=== PATIENT | female | born 1985 | race Caucasian/White ===

== ENCOUNTER 2016-10-23 16:43 | Emergency (ER) | payer BC ==
[2016-10-23] MEDS ORDERED: Ondansetron 4 MG/2 ML SDV IVPUSH ONE (18:35)
[2016-10-23] MEDS ORDERED: Sodium Chloride 0.9% 1,000 ML IV ONE (18:35)
--- NOTE | 2016-10-23 18:51 | EDM.PDOC ---
ED HPI GI/ABDOMINAL - General Chief Complaint: Gastrointestinal Problem Stated Complaint: PT VOMITTING, DIARRHEA Time Seen by Provider: 10/23/16 17:42 Source of Information: Reports: Patient History Limitations: Reports: No limitations - History of Present Illness INITIAL COMMENTS - FREE TEXT/NARRATIVE: History of present illness: [31-year-old female comes in complaining of low grade fever, and general aches, stomach upset, nausea vomiting diarrhea. Patient indicates that this is been going on for the last 3 days progressively getting worse today she just feels weaker and that she must have some hydration more this will cause her fibromyalgia to flare up.] Review of systems: As per history of present illness and below otherwise all systems reviewed and negative. Past medical history: As per history of present illness and as reviewed below otherwise noncontributory. Surgical history: As per history of present illness and as reviewed below otherwise noncontributory. Social history: No reported history of drug or alcohol abuse. Family history: As per history of present illness and as reviewed below otherwise noncontributory. Physical exam: HEENT: Atraumatic, normocephalic, pupils reactive, negative for conjunctival pallor or scleral icterus, mucous membranes moist, throat clear, neck supple, nontender, trachea midline. Lungs: Clear to auscultation, breath sounds equal bilaterally, chest nontender. Heart: S1S2, regular, negative for clicks, rubs, or JVD. Abdomen: Soft, nondistended, nontender. Negative for masses or hepatosplenomegaly. Negative for costovertebral tenderness. Pelvis: Stable nontender. Genitourinary: Deferred. Rectal: Deferred. Extremities: Atraumatic, negative for cords or calf pain. Neurovascular unremarkable. Neuro: Awake, alert, oriented. Cranial nerves II through XII unremarkable. Cerebellum unremarkable. Motor and sensory unremarkable throughout. Exam nonfocal. Patient indicated she felt nausea the past and could successfully tolerate some by mouth fluids at this time we'll attempt PO challenge By mouth challenge successful without any complaint Patient without any vomiting or diarrhea during her time in the ER which was greater than 4 hours. Diagnostics: [CBC, CMP] Therapeutics: [IV fluid, Zofran] Impression: [Viral syndrome] Plan: [Followup outpatient with primary care provider] Definitive disposition and diagnosis as appropriate pending reevaluation and review of above. - Related Data Allergies/ADRs: Allergies Allergy/AdvReac Type Severity Reaction Status Date / Time dexamethasone Allergy Other Verified 10/23/16 17:30 ketorolac tromethamine Allergy Shortness Verified 10/23/16 17:30 [From Toradol] of Breath metoclopramide HCl Allergy Anxiety Verified 10/23/16 17:30 [From Reglan] naproxen sodium Allergy Shortness Verified 10/23/16 17:30 [From Treximet] of Breath sumatriptan [From Imitrex] Allergy Shortness Verified 10/23/16 17:30 of Breath sumatriptan succinate Allergy Shortness Verified 10/23/16 17:30 [From Treximet] of Breath Home Meds: Home Meds acetaZOLAMIDE [Diamox] 500 mg PO BID 06/25/14 [History] buPROPion [Wellbutrin XL] 300 mg PO DAILY 06/25/14 [History] Acetaminop/Dichlphn/Isomethept [Midrin 325-100-65 MG] 1 cap PO Q4H PRN 04/27/15 [History] Magnesium 250 mg PO DAILY 04/27/15 [History] Cholecalciferol (Vitamin D3) [Vitamin D] 4,000 unit PO DAILY 10/21/15 [History] Sertraline HCl [Zoloft] 200 mg PO DAILY 12/02/15 [History] Ketoprofen 1 tab PO DAILY PRN 10/23/16 [History] traZODone HCl [Trazodone HCl] 1 tab PO BEDTIME 10/23/16 [History] Past Medical History Respiratory History: Reports: Asthma Musculoskeletal History: Reports: Fibromyalgia Neurological History: Reports: Migraines, Other (see below) Other Neuro History: fibromyalgia, psuedo cerebral tumor Psychiatric History: Reports: Anxiety, Depression - Infectious Disease History Infectious Disease History: Reports: Chicken pox Social & Family History - Family History Family Medical History: Noncontributory - Tobacco Use Smoking Status *Q: Never Smoker Second Hand Smoke Exposure: No - Caffeine Use Caffeine Use: Reports: Soda - Alcohol Use Days Per Week of Alcohol Use: 0 - Recreational Drug Use Recreational Drug Use: No ED ROS GENERAL - Review of Systems Review Of Systems: See Below (See history of present illness) ED EXAM, GI/ABD - Physical Exam Exam: See Below (See history of present illness) Course - Vital Signs Last Recorded V/S: Last Vital Signs Temp 37.2 C 10/23/16 17:27 Pulse 117 H 10/23/16 17:27 Resp 16 10/23/16 17:27 BP 128/87 10/23/16 17:27 Pulse Ox 96 10/23/16 17:27 - Orders/Labs/Meds Labs: Laboratory Tests 10/23/16 10/23/16 Range/Units 19:20 19:20 WBC 10.19 (4.0-11.0) K/uL RBC 4.77 (4.30-5.90) M/uL Hgb 14.0 (12.0-16.0) g/dL Hct 41.7 (36.0-46.0) % MCV 87.4 (80.0-98.0) fL MCH 29.4 (27.0-32.0) pg MCHC 33.6 (31.0-37.0) g/dL RDW Std Deviation 40.7 (28.0-62.0) fl RDW Coeff of Paige 13 (11.0-15.0) % Plt Count 197 (150-400) K/uL MPV 10.70 (7.40-12.00) fL Neut % (Auto) 91.9 H (48.0-80.0) % Lymph % (Auto) 4.9 L (16.0-40.0) % [place] % (Auto) 3.0 (0.0-15.0) % Eos % (Auto) 0.1 (0.0-7.0) % Baso % (Auto) 0.1 (0.0-1.5) % Neut # 9.4 H (1.4-5.7) K/uL Lymph # 0.5 L (0.6-2.4) K/uL [place] # 0.3 (0.0-0.8) K/uL Eos # 0.0 (0.0-0.7) K/uL Baso # 0.0 (0.0-0.1) K/uL Nucleated RBC % 0.0 /100WBC Nucleated RBCs # 0 K/uL Sodium 137 (136-146) mmol/L Potassium 3.7 (3.5-5.1) mmol/L Chloride 111 H (98-110) mmol/L Carbon Dioxide 17 L (21-31) mmol/L BUN 15 (6.0-23.0) mg/dL Creatinine 0.9 (0.6-1.5) mg/dL Est Cr Clr Drug Dosing 78.93 mL/min Estimated GFR (MDRD) > 60.0 ml/min Glucose 101 (60-110) mg/dL Calcium 8.8 (8.8-10.8) mg/dL Total Bilirubin 0.6 (0.1-1.5) mg/dL AST 12 (5-40) IU/L ALT 9 (8-54) IU/L Alkaline Phosphatase 101 (40-150) Total Protein 7.7 (6.0-8.0) g/dL Albumin 4.3 (3.5-5.0) g/dL Globulin 3.4 (2.0-3.5) g/dL Albumin/Globulin Ratio 1.3 (1.3-2.8) Meds: Medications Discontinued Medications Generic Name Dose Route Start Last Admin Trade Name Freq PRN Reason Stop Dose Admin Sodium Chloride 1,000 mls @ 999 mls/hr 10/23/16 18:35 10/23/16 19:21 Normal Saline IV 10/23/16 19:35 999 mls/hr STAT ONE Administration Ondansetron HCl 8 mg 10/23/16 18:35 10/23/16 19:22 Zofran IVPUSH 10/23/16 18:36 8 mg ONETIME ONE Administration Departure - Departure Time of Disposition: 21:10 Disposition: Home, Self-Care 01 Condition: good Clinical Impression: Vomiting, Diarrhea Instructions: Viral Gastroenteritis, Adult, [id number] Forms: ED Department Discharge Additional Instructions: The following information is given to patients seen in the emergency department who are being discharged to home. This information is to outline your options for follow-up care. We provide all patients seen in our emergency department with a follow-up referral. The need for follow-up, as well as the timing and circumstances, are variable depending upon the specifics of your emergency department visit. If you don't have a primary care physician on staff, we will provide you with a referral. We always advise you to contact your personal physician following an emergency department visit to inform them of the circumstance of the visit and for follow-up with them and/or the need for any referrals to a consulting specialist. The emergency department will also refer you to a specialist when appropriate. This referral assures that you have the opportunity for follow-up care with a specialist. All of these measure are taken in an effort to provide you with optimal care, which includes your follow-up. Under all circumstances we always encourage you to contact your private physician who remains a resource for coordinating your care. When calling for follow-up care, please make the office aware that this follow-up is from your recent emergency room visit. If for any reason you are refused follow-up, please contact the [facility] Emergency Department at and asked to speak to the emergency department charge nurse. Followup PCP in 1-2 days Turn to ED as needed as discussed
[2016-10-23 19:48] LABS: CHLORIDE,CL 111 mmol/L (98-110); SODIUM,NA 137 mmol/L (136-146)
[2016-10-23 21:36] VITALS: BP 119/81
== END 2016-10-23 21:36 | disposition home or self-care (01) ==
LOC: MW.ED 16:43
DX: B34.9 Viral infection, unspecified (principal); J45.909 Unspecified asthma, uncomplicated; F41.9 Anxiety disorder, unspecified; F32.9 Major depressive disorder, single episode, unspecified; Z79.899 Other long term (current) drug therapy; Z88.8 Allergy status to other drugs, medicaments and biological substances; Z88.5 Allergy status to narcotic agent
CPT/HCPCS: 36415; 80053; 85025; 96361; 96374; 99284; J2405; J7040

== ENCOUNTER 2017-03-08 16:59 | Emergency (ER) | payer BC ==
[2017-03-08] MEDS ORDERED: Ondansetron 4 MG/2 ML SDV IVPUSH ONE (17:16)
[2017-03-08] MEDS ORDERED: Sodium Chloride 0.9% 1,000 ML IV ONE (17:16)
[2017-03-08] MEDS ORDERED: Acetaminophen 1,000 MG in Premix Bag 1 BAG IV ONE (17:38)
--- NOTE | 2017-03-08 17:57 | EDM.PDOC ---
ED HPI GENERAL MEDICAL PROBLEM - General Chief Complaint: Gastrointestinal Problem Stated Complaint: 8 WEEKS /VOMITING HEADACHE Time Seen by Provider: 03/08/17 17:45 Source of Information: Reports: Patient History Limitations: Reports: No Limitations - History of Present Illness INITIAL COMMENTS - FREE TEXT/NARRATIVE: History of present illness: [31-year-old female comes in complaining of migraine headache. Patient is 8 weeks and does have a long-standing history of migraines. Patient indicates that she has had intermittent nausea throughout this 8 weeks of but that it had mostly resolved and now it has returned again today.] Review of systems: As per history of present illness and below otherwise all systems reviewed and negative. Past medical history: As per history of present illness and as reviewed below otherwise noncontributory. Surgical history: As per history of present illness and as reviewed below otherwise noncontributory. Social history: No reported history of drug or alcohol abuse. Family history: As per history of present illness and as reviewed below otherwise noncontributory. Physical exam: HEENT: Atraumatic, normocephalic, pupils reactive, negative for conjunctival pallor or scleral icterus, mucous membranes moist, throat clear, neck supple, nontender, trachea midline. Lungs: Clear to auscultation, breath sounds equal bilaterally, chest nontender. Heart: S1S2, regular, negative for clicks, rubs, or JVD. Abdomen: Soft, nondistended, nontender. Negative for masses or hepatosplenomegaly. Negative for costovertebral tenderness. Pelvis: Stable nontender. Genitourinary: Deferred. Rectal: Deferred. Extremities: Atraumatic, negative for cords or calf pain. Neurovascular unremarkable. Neuro: Awake, alert, oriented. Cranial nerves II through XII unremarkable. Cerebellum unremarkable. Motor and sensory unremarkable throughout. Exam nonfocal. 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 head Pain Score (Numeric/FACES): 7 stomach Pain Score (Numeric/FACES): 4 - Related Data Allergies Allergy/AdvReac Type Severity Reaction Status Date / Time dexamethasone Allergy Other Verified 03/08/17 17:12 ketorolac tromethamine Allergy Shortness Verified 03/08/17 17:12 [From Toradol] of Breath metoclopramide HCl Allergy Anxiety Verified 03/08/17 17:12 [From Reglan] naproxen sodium Allergy Shortness Verified 03/08/17 17:12 [From Treximet] of Breath sumatriptan [From Imitrex] Allergy Shortness Verified 03/08/17 17:12 of Breath sumatriptan succinate Allergy Shortness Verified 03/08/17 17:12 [From Treximet] of Breath Home Meds: Home Meds Cholecalciferol (Vitamin D3) [Vitamin D3] 400 unit PO DAILY 03/08/17 [History] Magnesium 250 mg PO DAILY 03/08/17 [History] Vit No.129/Iron/FA [ One Daily Tablet] 1 tab PO DAILY 03/08/17 [History] Sertraline HCl [Zoloft] 200 mg PO DAILY 03/08/17 [History] buPROPion HCl [Wellbutrin Xl] 300 mg PO DAILY 03/08/17 [History] Past Medical History Respiratory History: Reports: Asthma Musculoskeletal History: Reports: Fibromyalgia Neurological History: Reports: Migraines, Other (See Below) Other Neuro History: fibromyalgia, psuedo cerebral tumor Psychiatric History: Reports: Anxiety, Depression - Infectious Disease History Infectious Disease History: Reports: Chicken Pox Social & Family History - Family History Family Medical History: Noncontributory - Tobacco Use Smoking Status *Q: Never Smoker Second Hand Smoke Exposure: No - Caffeine Use Caffeine Use: Reports: Soda - Alcohol Use Days Per Week of Alcohol Use: 0 - Recreational Drug Use Recreational Drug Use: No ED ROS GENERAL - Review of Systems Review Of Systems: See Below (History of present illness) ED EXAM, GENERAL - Physical Exam Exam: See Below (See history of present illness) Course - Vital Signs Last Recorded V/S: Last Vital Signs Temp 36.4 C 03/08/17 17:12 Pulse 103 H 03/08/17 17:12 Resp 18 03/08/17 17:12 BP 139/90 03/08/17 17:12 Pulse Ox 98 03/08/17 17:12 - Orders/Labs/Meds Orders: Active Orders 24 hr Category Date Time Status CBC WITH AUTO DIFF [HEME] Stat Lab 03/08/17 17:16 Ordered CMP [COMPREHENSIVE METABOLIC PN,CMP] [CHEM] Stat Lab 03/08/17 17:16 Ordered UA W/MICROSCOPIC [URIN] Stat Lab 03/08/17 17:38 Uncollected Acetaminophen [Ofirmev] 1,000 mg Med 03/08/17 17:38 Ordered Premix Bag 1 bag IV NOW Sodium Chloride 0.9% [Normal Saline] 1,000 ml Med 03/08/17 17:16 Ordered IV STAT Medication Orders Sodium Chloride (Normal Saline) 1,000 mls @ 999 mls/hr IV STAT ONE Stop: 03/08/17 18:16 Acetaminophen 1,000 mg/ Premix 100 mls @ 400 mls/hr IV NOW ONE Stop: 03/08/17 17:52 Meds: Medications Generic Name Dose Route Start Last Admin Trade Name Freq PRN Reason Stop Dose Admin Sodium Chloride 1,000 mls @ 999 mls/hr 03/08/17 17:16 Normal Saline IV 03/08/17 18:16 STAT ONE Acetaminophen 1,000 mg/ Premix 100 mls @ 400 mls/hr 03/08/17 17:38 IV 03/08/17 17:52 NOW ONE Discontinued Medications Generic Name Dose Route Start Last Admin Trade Name Freq PRN Reason Stop Dose Admin Ondansetron HCl 8 mg 03/08/17 17:16 Zofran IVPUSH 03/08/17 17:17 ONETIME ONE Departure - Departure Time of Disposition: 18:05 Disposition: Home, Self-Care 01 Condition: Good Clinical Impression: Migraine, Vomiting - Discharge Information Instructions: Dehydration, Adult, [id number], Nausea and Vomiting, Adult, [id number] Forms: ED Department Discharge Additional Instructions: The following information is given to patients seen in the emergency department who are being discharged to home. This information is to outline your options for follow-up care. We provide all patients seen in our emergency department with a follow-up referral. The need for follow-up, as well as the timing and circumstances, are variable depending upon the specifics of your emergency department visit. If you don't have a primary care physician on staff, we will provide you with a referral. We always advise you to contact your personal physician following an emergency department visit to inform them of the circumstance of the visit and for follow-up with them and/or the need for any referrals to a consulting specialist. The emergency department will also refer you to a specialist when appropriate. This referral assures that you have the opportunity for follow-up care with a specialist. All of these measure are taken in an effort to provide you with optimal care, which includes your follow-up. Under all circumstances we always encourage you to contact your private physician who remains a resource for coordinating your care. When calling for follow-up care, please make the office aware that this follow-up is from your recent emergency room visit. If for any reason you are refused follow-up, please contact the [facility] Emergency Department at and asked to speak to the emergency department charge nurse. Drink clear liquids and advance to full liquids as slowly introduce start seafoods such as bananas rice applesauce and toast You're being provided with Zofran to help and assist you with a nausea it is important you follow-up with your OB supervisor fine grading as discussed Return to the ED as needed as discussed - My Orders Last 24 Hours: My Active Orders 03/08/17 17:16 CBC WITH AUTO DIFF [HEME] Stat CMP [COMPREHENSIVE METABOLIC PN,CMP] [CHEM] Stat Sodium Chloride 0.9% [Normal Saline] 1,000 ml IV STAT 03/08/17 17:38 UA W/MICROSCOPIC [URIN] Stat Acetaminophen [Ofirmev] 1,000 mg Premix Bag 1 bag IV NOW - Assessment/Plan Last 24 Hours: My Active Orders 03/08/17 17:16 CBC WITH AUTO DIFF [HEME] Stat CMP [COMPREHENSIVE METABOLIC PN,CMP] [CHEM] Stat Sodium Chloride 0.9% [Normal Saline] 1,000 ml IV STAT 03/08/17 17:38 UA W/MICROSCOPIC [URIN] Stat Acetaminophen [Ofirmev] 1,000 mg Premix Bag 1 bag IV NOW
[2017-03-08 18:22] LABS: CHLORIDE,CL 105 mmol/L (98-110); SODIUM,NA 136 mmol/L (136-146)
[2017-03-08] MEDS ORDERED: Acetaminophen 500 MG Tab PO ONE (18:47)
[2017-03-08 18:56] VITALS: BP 131/60
== END 2017-03-08 18:53 | disposition home or self-care (01) ==
LOC: MW.ED 16:59
DX: O99.351 Diseases of the nervous system complicating pregnancy, first trimester (principal); G43.909 Migraine, unspecified, not intractable, without status migrainosus; O99.341 Other mental disorders complicating pregnancy, first trimester; F41.9 Anxiety disorder, unspecified; F32.9 Major depressive disorder, single episode, unspecified; Z79.899 Other long term (current) drug therapy; Z88.2 Allergy status to sulfonamides; Z88.6 Allergy status to analgesic agent; Z88.8 Allergy status to other drugs, medicaments and biological substances; Z3A.08 8 weeks gestation of pregnancy
CPT/HCPCS: 36415; 80053; 81001; 85025; 96361; 96374; 99283; A9270; J2405; J7040

== ENCOUNTER 2017-05-16 19:41 | Emergency (ER) | payer BC ==
[2017-05-16] MEDS ORDERED: Sodium Chloride 0.9% 1,000 ML IV ONE (20:06)
[2017-05-16] MEDS ORDERED: Promethazine 25 MG/ML SDV IM ONE (20:07)
--- NOTE | 2017-05-16 20:10 | EDM.PDOC ---
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 dickinson on the phone today Review of Systems: As per history of present illness and below otherwise all systems reviewed and negative. Past medical history: As per history of present illness and as reviewed below otherwise noncontributory. Surgical history: As per history of present illness and as reviewed below otherwise noncontributory. Social history: No reported history of drug or alcohol abuse. Family history: As per history of present illness and as reviewed below otherwise noncontributory. Physical exam: Alert and oriented female speaking in full sentences no shortness of breath noted she does appear nontoxic HEENT: Atraumatic, normocehpalic, pupils reactive, negative for conjunctival pallor or scleral icterus, mucous membranes slightly dry, throat clear, neck supple, nontender, trachea midline. Lungs: Clear to auscultation, breath sounds equal bilaterally, chest non tender. Pain to her sides was reproducible with light palpation. Heart: S1S2, regular, negative for clicks, rubs, or JVD. Abdomen: Soft, nondistended, nontender. Negative for masses or hepatossplenmegaly. Negative for costovertebral tenderness. Pelvis: Stable nontender. Genitourinary: Deferred. Rectal: Deferred Extremities: Atraumatic, negative for cords or calf pain. Neurovascular unremarkable. Neuro: Awake, alert, oriented. Cranial nerves II through XII unremarkable. Cerebellum unremarkable. Motor and sensory unremarkable throughout. Exam nonfocal. Diagnostics: [] Therapeutics: [1 L normal saline Promethazine IM] Zofran Impression: [Hyperemesis ] Plan: []Discharged to home Follow up with your 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 tomorrow Definitive disposition and diagnosis as appropriate pending reevaluation and review of above. bilateral flank Pain Score (Numeric/FACES): 9 - Related Data Allergies Allergy/AdvReac Type Severity Reaction Status Date / Time dexamethasone Allergy Other Verified 05/16/17 19:47 ketorolac tromethamine Allergy Shortness Verified 05/16/17 19:47 [From Toradol] of Breath metoclopramide HCl Allergy Anxiety Verified 05/16/17 19:47 [From Reglan] naproxen sodium Allergy Shortness Verified 05/16/17 19:47 [From Treximet] of Breath sumatriptan [From Imitrex] Allergy Shortness Verified 05/16/17 19:47 of Breath sumatriptan succinate Allergy Shortness Verified 05/16/17 19:47 [From Treximet] of Breath Home Meds: Home Meds Cholecalciferol (Vitamin D3) [Vitamin D3] 400 unit PO DAILY 03/08/17 [History] Magnesium 250 mg PO DAILY 03/08/17 [History] Ondansetron [Zofran] 4 mg PO Q4H #30 tab 03/08/17 [Rx] Vit No.129/Iron/FA [ One Daily Tablet] 1 tab PO DAILY 03/08/17 [History] Sertraline HCl [Zoloft] 200 mg PO DAILY 03/08/17 [History] buPROPion HCl [Wellbutrin Xl] 300 mg PO DAILY 03/08/17 [History] Past Medical History HEENT History: Reports: None Cardiovascular History: Reports: None Respiratory History: Reports: Asthma Gastrointestinal History: Reports: None Genitourinary History: Reports: None 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 History: Reports: Musculoskeletal History: Reports: Fibromyalgia Neurological History: Reports: Migraines, Other (See Below) Other Neuro History: fibromyalgia, psuedo cerebral tumor Psychiatric History: Reports: Anxiety, Depression Endocrine/Metabolic History: Reports: None Dermatologic History: Reports: None - Infectious Disease History Infectious Disease History: Reports: Chicken Pox - Past Surgical History HEENT Surgical History: Reports: None GI Surgical History: Reports: None Social & Family History - Family History Family Medical History: Noncontributory - Tobacco Use Smoking Status *Q: Never Smoker Second Hand Smoke Exposure: No - Caffeine Use Caffeine Use: Reports: Soda - Alcohol Use Days Per Week of Alcohol Use: 0 - Recreational Drug Use Recreational Drug Use: No ED ROS GENERAL - Review of Systems Review Of Systems: ROS reveals no pertinent complaints other than HPI. ED EXAM, GI/ABD - Physical Exam Exam: See Below (See dictation) Course - Vital Signs Last Recorded V/S: Last Vital Signs Temp 36.4 C 05/16/17 19:48 Pulse 117 H 05/16/17 19:48 Resp 18 05/16/17 19:48 BP 120/87 05/16/17 19:48 Pulse Ox 95 05/16/17 19:48 - Orders/Labs/Meds Orders: Active Orders 24 hr Category Date Time Status Ondansetron [Zofran] Med 05/16/17 20:58 Once 4 mg IVPUSH ONETIME ONE Sodium Chloride 0.9% [Normal Saline] 1,000 ml Med 05/16/17 20:06 Active IV STAT Medication Orders Sodium Chloride (Normal Saline) 1,000 mls @ 999 mls/hr IV STAT ONE Stop: 05/16/17 21:06 Last Admin: 05/16/17 20:19 Dose: 999 mls/hr Meds: Medications Generic Name Dose Route Start Last Admin Trade Name Freq PRN Reason Stop Dose Admin Sodium Chloride 1,000 mls @ 999 mls/hr 05/16/17 20:06 05/16/17 20:19 Normal Saline IV 05/16/17 21:06 999 mls/hr STAT ONE Administration Discontinued Medications Generic Name Dose Route Start Last Admin Trade Name Freq PRN Reason Stop Dose Admin Promethazine HCl 25 mg 05/16/17 20:07 05/16/17 20:18 Phenergan IM 05/16/17 20:08 25 mg ONETIME ONE Administration Departure - Departure Time of Disposition: 20:59 Disposition: Home, Self-Care 01 Condition: Good Clinical Impression: Vomiting - Discharge Information Referrals: PCP,None [Primary Care Provider] - Forms: ED Department Discharge Additional Instructions: The following information is given to patients seen in the emergency department who are being discharged to home. This information is to outline your options for follow-up care. We provide all patients seen in our emergency department with a follow-up referral. The need for follow-up, as well as the timing and circumstances, are variable depending upon the specifics of your emergency department visit. If you don't have a primary care physician on staff, we will provide you with a referral. We always advise you to contact your personal physician following an emergency department visit to inform them of the circumstance of the visit and for follow-up with them and/or the need for any referrals to a consulting specialist. The emergency department will also refer you to a specialist when appropriate. This referral assures that you have the opportunity for followup care with a specialist. All of these measure are taken in an effort to provide you with optimal care, which includes your followup. Under all circumstances we always encourage you to contact your private physician who remains a resource for coordinating your care. When calling for followup care, please make the office aware that this follow-up is from your recent emergency room visit. If for any reason you are refused follow-up, please contact the [facility] emergency department at and asked to speak to the emergency department charge nurse. You were given IV fluids while in the emergency department You are given some Phenergan IM This prior to leaving the ED you're given Zofran IV Please follow up with your 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 tomorrow - My Orders Last 24 Hours: My Active Orders 05/16/17 20:06 Sodium Chloride 0.9% [Normal Saline] 1,000 ml IV STAT 05/16/17 20:58 Ondansetron [Zofran] 4 mg IVPUSH ONETIME ONE - Assessment/Plan Last 24 Hours: My Active Orders 05/16/17 20:06 Sodium Chloride 0.9% [Normal Saline] 1,000 ml IV STAT 05/16/17 20:58 Ondansetron [Zofran] 4 mg IVPUSH ONETIME ONE
[2017-05-16] MEDS ORDERED: Ondansetron 4 MG/2 ML SDV IVPUSH ONE (20:58)
[2017-05-16 21:28] VITALS: BP 119/75
== END 2017-05-16 21:23 | disposition home or self-care (01) ==
LOC: MW.ED 19:41
DX: O21.0 Mild hyperemesis gravidarum (principal); O99.512 Diseases of the respiratory system complicating pregnancy, second trimester; J45.909 Unspecified asthma, uncomplicated; O99.342 Other mental disorders complicating pregnancy, second trimester; F32.9 Major depressive disorder, single episode, unspecified; Z79.899 Other long term (current) drug therapy; Z88.8 Allergy status to other drugs, medicaments and biological substances; Z88.6 Allergy status to analgesic agent; Z3A.18 18 weeks gestation of pregnancy
CPT/HCPCS: 96361; 96372; 96374; 99283; J2405; J2550; J7040

== ENCOUNTER 2017-05-20 10:12 | Emergency (ER) | payer BC ==
[2017-05-20] MEDS ORDERED: Sodium Chloride 0.9% 1,000 ML IV ONE (10:25)
[2017-05-20] MEDS ORDERED: Sodium Chloride 0.9% 2.5 ML Syringe FLUSH PRN (10:25)
[2017-05-20] MEDS ORDERED: Sodium Chloride 0.9% 10 ML Syringe FLUSH PRN (10:25)
--- NOTE | 2017-05-20 12:26 | EDM.PDOC ---
ED HPI GENERAL MEDICAL PROBLEM - General Chief Complaint: Gastrointestinal Problem Stated Complaint: VOMITING Time Seen by Provider: 05/20/17 12:22 Source of Information: Reports: Patient History Limitations: Reports: No Limitations - History of Present Illness INITIAL COMMENTS - FREE TEXT/NARRATIVE: HISTORY AND PHYSICAL: []32-year-old female presenting with vomiting History of Present Illness: []Patient is known to the ED staff with her and hyperemesis Called Dr. Stovall previous to coming to ER. It was recommended to come to the ER Review of Systems: As per history of present illness and below otherwise all systems reviewed and negative. Past medical history: As per history of present illness and as reviewed below otherwise noncontributory. Surgical history: As per history of present illness and as reviewed below otherwise noncontributory. Social history: No reported history of drug or alcohol abuse. Family history: As per history of present illness and as reviewed below otherwise noncontributory. Physical exam: Alert and oriented female. She looks tired. Answering questions in full sentences no shortness of breath nontoxic in appearance. HEENT: Atraumatic, normocehpalic, pupils reactive, negative for conjunctival pallor or scleral icterus, mucous membranes dry throat clear, neck supple, nontender, trachea midline. Lungs: Clear to auscultation, breath sounds equal bilaterally, chest non tender. Heart: S1S2, regular, negative for clicks, rubs, or JVD. Abdomen: Soft, nondistended, nontender. Negative for masses or hepatossplenmegaly. Negative for costovertebral tenderness. Pelvis: Stable nontender. Genitourinary: Deferred. Rectal: Deferred Extremities: Atraumatic, negative for cords or calf pain. Neurovascular unremarkable. Neuro: Awake, alert, oriented. Cranial nerves II through XII unremarkable. Cerebellum unremarkable. Motor and sensory unremarkable throughout. Exam nonfocal. Diagnostics: [CBC CMP] Therapeutics: [] Impression: [Hyperemesis ] Plan: [Home and rest Small sips of water every 20 minutes Follow-up with your INFORMATICA DEVELOPER] Definitive disposition and diagnosis as appropriate pending reevaluation and review of above. Bilateral Abdominal Pain Score (Numeric/FACES): 4 - Related Data Allergies Allergy/AdvReac Type Severity Reaction Status Date / Time dexamethasone Allergy Other Verified 05/20/17 10:18 ketorolac tromethamine Allergy Shortness Verified 05/20/17 10:18 [From Toradol] of Breath metoclopramide HCl Allergy Anxiety Verified 05/20/17 10:18 [From Reglan] naproxen sodium Allergy Shortness Verified 05/20/17 10:18 [From Treximet] of Breath sumatriptan [From Imitrex] Allergy Shortness Verified 05/20/17 10:18 of Breath sumatriptan succinate Allergy Shortness Verified 05/20/17 10:18 [From Treximet] of Breath Home Meds: Home Meds Cholecalciferol (Vitamin D3) [Vitamin D3] 400 unit PO DAILY 03/08/17 [History] Magnesium 250 mg PO DAILY 03/08/17 [History] Ondansetron [Zofran] 4 mg PO Q4H #30 tab 03/08/17 [Rx] Vit No.129/Iron/FA [ One Daily Tablet] 1 tab PO DAILY 03/08/17 [History] Sertraline HCl [Zoloft] 200 mg PO DAILY 03/08/17 [History] buPROPion HCl [Wellbutrin Xl] 300 mg PO DAILY 03/08/17 [History] Promethazine HCl [Phenergan] 25 mg RC 05/20/17 [History] Past Medical History HEENT History: Reports: None Cardiovascular History: Reports: None Respiratory History: Reports: Asthma Gastrointestinal History: Reports: None Genitourinary History: Reports: None INFORMATICA DEVELOPER History: Reports: Musculoskeletal History: Reports: Fibromyalgia Neurological History: Reports: Migraines, Other (See Below) Other Neuro History: fibromyalgia, psuedo cerebral tumor Psychiatric History: Reports: Anxiety, Depression Endocrine/Metabolic History: Reports: None Dermatologic History: Reports: None - Infectious Disease History Infectious Disease History: Reports: Chicken Pox - Past Surgical History HEENT Surgical History: Reports: None GI Surgical History: Reports: None Social & Family History - Family History Family Medical History: Noncontributory - Tobacco Use Smoking Status *Q: Never Smoker Second Hand Smoke Exposure: No - Caffeine Use Caffeine Use: Reports: None - Alcohol Use Days Per Week of Alcohol Use: 0 - Recreational Drug Use Recreational Drug Use: No ED ROS GENERAL - Review of Systems Review Of Systems: ROS reveals no pertinent complaints other than HPI. ED EXAM, GI/ABD - Physical Exam Exam: See Below (See dictation) Course - Vital Signs Last Recorded V/S: Last Vital Signs Temp 36.3 C 05/20/17 10:20 Pulse 89 05/20/17 10:20 Resp 18 05/20/17 10:20 BP 143/76 H 05/20/17 10:20 Pulse Ox 98 05/20/17 10:20 - Orders/Labs/Meds Orders: Active Orders 24 hr Category Date Time Status Sodium Chloride 0.9% [Saline Flush] Med 05/20/17 10:25 Active 10 ml FLUSH ASDIRECTED PRN Sodium Chloride 0.9% [Saline Flush] Med 05/20/17 10:25 Active 2.5 ml FLUSH ASDIRECTED PRN Saline Lock Insert [OM.PC] Stat Oth 05/20/17 10:25 Ordered Medication Orders Sodium Chloride (Saline Flush) 10 ml FLUSH ASDIRECTED PRN PRN Reason: Keep Vein Open Last Admin: 05/20/17 10:36 Dose: 10 ml Sodium Chloride (Saline Flush) 2.5 ml FLUSH ASDIRECTED PRN PRN Reason: Keep Vein Open Last Admin: 05/20/17 10:36 Dose: 2.5 ml Labs: Laboratory Tests 05/20/17 05/20/17 Range/Units 10:16 10:16 WBC 8.62 (4.0-11.0) K/uL RBC 4.20 L (4.30-5.90) M/uL Hgb 13.6 (12.0-16.0) g/dL Hct 38.3 (36.0-46.0) % MCV 91.2 (80.0-98.0) fL MCH 32.4 H (27.0-32.0) pg MCHC 35.5 (31.0-37.0) g/dL RDW Std Deviation 44.1 (28.0-62.0) fl RDW Coeff of Paige 13 (11.0-15.0) % Plt Count 213 (150-400) K/uL MPV 10.70 (7.40-12.00) fL Neut % (Auto) 77.0 (48.0-80.0) % Lymph % (Auto) 17.3 (16.0-40.0) % [place] % (Auto) 4.8 (0.0-15.0) % Eos % (Auto) 0.8 (0.0-7.0) % Baso % (Auto) 0.1 (0.0-1.5) % Neut # (Auto) 6.6 H (1.4-5.7) K/uL Lymph # (Auto) 1.5 (0.6-2.4) K/uL [place] # (Auto) 0.4 (0.0-0.8) K/uL Eos # (Auto) 0.1 (0.0-0.7) K/uL Baso # (Auto) 0.0 (0.0-0.1) K/uL Nucleated RBC % 0.0 /100WBC Nucleated RBCs # 0 K/uL Urine Color YELLOW Urine Appearance CLEAR Urine pH 6.0 (5.0-8.0) Ur Specific [place] <= 1.005 (1.001-1.035) Urine Protein NEGATIVE (NEGATIVE) mg/dL Urine Glucose (UA) NEGATIVE (NEGATIVE) mg/dL Urine Ketones NEGATIVE (NEGATIVE) mg/dL Urine Occult Blood NEGATIVE (NEGATIVE) Urine Nitrite NEGATIVE (NEGATIVE) Urine Bilirubin NEGATIVE (NEGATIVE) Urine Urobilinogen 1.0 (<2.0) EU/dL Ur Leukocyte Esterase NEGATIVE (NEGATIVE) Urine RBC 0-1 (0-2/HPF) Urine WBC 0-1 (0-5/HPF) Ur Epithelial Cells MODERATE (NONE-FEW) Urine Bacteria FEW (NEGATIVE) Meds: Medications Generic Name Dose Route Start Last Admin Trade Name Freq PRN Reason Stop Dose Admin Sodium Chloride 10 ml 05/20/17 10:05/20/17 10:36 Saline Flush FLUSH 10 ml ASDIRECTED PRN Administration Keep Vein Open Sodium Chloride 2.5 ml 05/20/17 10:25 05/20/17 10:36 Saline Flush FLUSH 2.5 ml ASDIRECTED PRN Administration Keep Vein Open Discontinued Medications Generic Name Dose Route Start Last Admin Trade Name Freq PRN Reason Stop Dose Admin Sodium Chloride 1,000 mls @ 999 mls/hr 05/20/17 10:25 05/20/17 10:35 Normal Saline IV 05/20/17 11:25 999 mls/hr STAT ONE Administration Departure - Departure Time of Disposition: 12:25 Disposition: Home, Self-Care 01 Condition: Good Clinical Impression: Hyperemesis gravidarum before end of 22 week gestation with carbohydrate depletion - Discharge Information Instructions: Dehydration, Adult, [id number] Referrals: PCP,Unknown [Primary Care Provider] - Additional Instructions: The following information is given to patients seen in the emergency department who are being discharged to home. This information is to outline your options for follow-up care. We provide all patients seen in our emergency department with a follow-up referral. The need for follow-up, as well as the timing and circumstances, are variable depending upon the specifics of your emergency department visit. If you don't have a primary care physician on staff, we will provide you with a referral. We always advise you to contact your personal physician following an emergency department visit to inform them of the circumstance of the visit and for follow-up with them and/or the need for any referrals to a consulting specialist. The emergency department will also refer you to a specialist when appropriate. This referral assures that you have the opportunity for followup care with a specialist. All of these measure are taken in an effort to provide you with optimal care, which includes your followup. Under all circumstances we always encourage you to contact your private physician who remains a resource for coordinating your care. When calling for followup care, please make the office aware that this follow-up is from your recent emergency room visit. If for any reason you are refused follow-up, please contact the [facility] emergency department at and asked to speak to the emergency department charge nurse. SHe was given IV fluids while in the ED Improvement was noted Discharge to home Follow-up with your INFORMATICA DEVELOPER this week Small sip of water every 20 minutes - My Orders Last 24 Hours: My Active Orders 05/20/17 10:25 Sodium Chloride 0.9% [Saline Flush] 10 ml FLUSH ASDIRECTED PRN Sodium Chloride 0.9% [Saline Flush] 2.5 ml FLUSH ASDIRECTED PRN Saline Lock Insert [OM.PC] Stat - Assessment/Plan Last 24 Hours: My Active Orders 05/20/17 10:25 Sodium Chloride 0.9% [Saline Flush] 10 ml FLUSH ASDIRECTED PRN Sodium Chloride 0.9% [Saline Flush] 2.5 ml FLUSH ASDIRECTED PRN Saline Lock Insert [OM.PC] Stat
[2017-05-20 12:42] VITALS: BP 155/78
== END 2017-05-20 12:37 | disposition home or self-care (01) ==
LOC: MW.ED 10:12
DX: O21.1 Hyperemesis gravidarum with metabolic disturbance (principal); O99.343 Other mental disorders complicating pregnancy, third trimester; F32.9 Major depressive disorder, single episode, unspecified; F41.9 Anxiety disorder, unspecified; Z88.5 Allergy status to narcotic agent; Z88.8 Allergy status to other drugs, medicaments and biological substances; Z79.899 Other long term (current) drug therapy; Z88.6 Allergy status to analgesic agent
CPT/HCPCS: 36415; 81001; 85025; 96360; 96361; 99284; J7040; 99283

== ENCOUNTER 2017-09-19 16:53 | Inpatient (IN) | payer BC ==
[2017-09-19] MEDS ORDERED: Calcium Gluconate 10% 1 GM/10 ML SDV IV PRN (17:34)
[2017-09-19] MEDS ORDERED: Sodium Chloride 0.9% 2.5 ML Syringe FLUSH PRN (17:34)
[2017-09-19] MEDS ORDERED: Methylergonovine 0.2 MG/1 ML Amp IM PRN (17:34)
[2017-09-19] MEDS ORDERED: Magnesium Sulfate/Water 4 GM in Premix Bag 1 BAG IV ONE (17:34)
[2017-09-19] MEDS ORDERED: Water For Irrigation,Sterile 1,000 ML Container IRR PRN (17:34)
[2017-09-19] MEDS ORDERED: Nalbuphine 10 MG/1 ML Vial IVPUSH PRN (17:34)
[2017-09-19] MEDS ORDERED: Lidocaine 1% 50 ML MDV INJECT PRN (17:34)
[2017-09-19] MEDS ORDERED: Terbutaline 1 MG/ML SDV SUBCUT PRN (17:34)
[2017-09-19] MEDS ORDERED: Carboprost Tromethamine 250 MCG/1 ML Amp IM PRN (17:34)
[2017-09-19] MEDS ORDERED: Butorphanol 1 MG/ML SDV IVPUSH PRN (17:34)
[2017-09-19] MEDS ORDERED: Sodium Chloride 0.9% 10 ML Syringe FLUSH PRN (17:34)
[2017-09-19] MEDS ORDERED: Misoprostol 200 MCG Tab PO PRN (17:34)
[2017-09-19] MEDS ORDERED: Oxytocin/0.9 % Sodium Chloride 30 UNIT/500 ML BAG IV SCH ×2 (17:45)
[2017-09-19] MEDS ORDERED: Magnesium Sulfate/Water 100 ML ONE (17:48)
[2017-09-19] MEDS ORDERED: Labetalol 100 MG/20 ML MDV IVPUSH ONE (17:53)
[2017-09-19] MEDS ORDERED: Ampicillin 2 GM in Sodium Chloride 0.9% 100 ML IV ONE (18:00)
[2017-09-19] MEDS: Sodium Chloride 0.9% 1,000 ML IV SCH (18:02)
[2017-09-19] MEDS: Magnesium Sulfate/Water 40 GM/1,000 ML BAG IV SCH (18:25)
[2017-09-19 18:27] LABS: CHLORIDE,CL 107 mmol/L (98-110); SODIUM,NA 136 mmol/L (136-146)
[2017-09-19] MEDS: Misoprostol 25 MCG (1/4 of 100 MCG) Tab VAG PRN ×2 (18:48→23:22)
[2017-09-19] MEDS ORDERED: Labetalol 100 MG/20 ML MDV ONE (20:33)
[2017-09-19] MEDS ORDERED: hydrOXYzine Pamoate 25 MG Cap PO ONE (22:17)
[2017-09-19] MEDS: Ampicillin 1 GM in Sodium Chloride 0.9% 50 ML IV SCH (22:28)
[2017-09-20] MEDS: Ampicillin 1 GM in Sodium Chloride 0.9% 50 ML IV SCH ×6 (02:25→22:50)
[2017-09-20] MEDS: Misoprostol 25 MCG (1/4 of 100 MCG) Tab VAG PRN ×2 (03:29→07:44)
[2017-09-20] MEDS ORDERED: Misoprostol 25 MCG (1/4 of 100 MCG) Tab PO ONE ×2 (07:53→13:38)
[2017-09-20] MEDS ORDERED: Misoprostol 25 MCG (1/4 of 100 MCG) Tab ONE (07:56)
[2017-09-20] MEDS ORDERED: Acetaminophen 500 MG Tab PO ONE (11:12)
[2017-09-20] MEDS ORDERED: Acetaminophen/Butalbital/Caffeine 325-50-40 MG Tab PO ONE (13:59)
[2017-09-20] MEDS ORDERED: Acetaminophen/Butalbital/Caffeine 325-50-40 MG Tab ONE (14:11)
[2017-09-20] MEDS: Magnesium Sulfate/Water 40 GM/1,000 ML BAG IV SCH (14:36)
[2017-09-20] MEDS: Benzocaine/Cetylpyridinium/Menthol Lozenge MUCMEM PRN ×2 (15:04→16:15)
[2017-09-20] MEDS ORDERED: Ropivacaine 100 ML ONE (19:55)
[2017-09-20] MEDS ORDERED: Ropivacaine 0.2% 2 MG/ML 20 ML SDV ONE (19:56)
[2017-09-20] MEDS ORDERED: fentaNYL 100 MCG/2 ML SDV ONE (19:56)
--- NOTE | 2017-09-20 21:17 | PCM.PREANE ---
Preanesthetic Assessment - Anesthesia/Transfusion/Family Hx Anesthesia History: No Prior Anesthesia Family History of Anesthesia Reaction: No Transfusion History: No Prior Transfusion(s) - Review of Systems General: No Symptoms Pulmonary: No Symptoms Cardiovascular: No Symptoms Gastrointestinal: No Symptoms Neurological: No Symptoms Other: Reports: None (Denies any personal or family hx of bleeding or clotting problems) - Physical Assessment Pulse: 107 Blood Pressure: 158/104 Vital Signs: Last Vital Signs Temp Pulse 107 H 09/19/17 20:44 Resp BP 158/104 H 09/19/17 20:44 Pulse Ox Height: 1.63 m Weight: 277.4 kg ASA Class: 3 (Patient on Magnesium) Mental Status: Alert & Oriented x3 Dentition: Reports: Normal Dentition ROM/Head Extension: Full - Lab Values: Laboratory Last Values WBC 9.17 K/uL (4.0-11.0) 09/19/17 17:45 RBC 3.96 M/uL (4.30-5.90) L 09/19/17 17:45 Hgb 11.8 g/dL (12.0-16.0) L 09/19/17 17:45 Hct 34.5 % (36.0-46.0) L 09/19/17 17:45 MCV 87.1 fL (80.0-98.0) 09/19/17 17:45 MCH 29.8 pg (27.0-32.0) 09/19/17 17:45 MCHC 34.2 g/dL (31.0-37.0) 09/19/17 17:45 RDW Std Deviation 40.2 fl (28.0-62.0) 09/19/17 17:45 RDW Coeff of Paige 13 % (11.0-15.0) 09/19/17 17:45 Plt Count 194 K/uL (150-400) 09/19/17 17:45 MPV 11.20 fL (7.40-12.00) 09/19/17 17:45 Nucleated RBC % 0.0 /100WBC 09/19/17 17:45 Nucleated RBCs # 0 K/uL 09/19/17 17:45 Sodium 136 mmol/L (136-146) 09/19/17 17:45 Potassium 3.6 mmol/L (3.5-5.1) 09/19/17 17:45 Chloride 107 mmol/L (98-110) 09/19/17 17:45 Carbon Dioxide 21 mmol/L (21-31) 09/19/17 17:45 BUN 10 mg/dL (6.0-23.0) 09/19/17 17:45 Creatinine 0.7 mg/dL (0.6-1.5) 09/19/17 17:45 Est Cr Clr Drug Dosing 100.55 mL/min 09/19/17 17:45 Estimated GFR (MDRD) > 60.0 ml/min 09/19/17 17:45 Glucose 82 mg/dL (60-110) 09/19/17 17:45 Uric Acid 7.4 mg/dL (2.1-6.2) H 09/19/17 17:45 Calcium 9.2 mg/dL (8.8-10.8) 09/19/17 17:45 Magnesium 4.6 mEq/L (1.5-2.3) H 09/20/17 16:08 Total Bilirubin 0.3 mg/dL (0.1-1.5) 09/19/17 17:45 AST 16 IU/L (5-40) 09/19/17 17:45 ALT 16 IU/L (8-54) 09/19/17 17:45 Alkaline Phosphatase 137 (40-150) 09/19/17 17:45 Lactate Dehydrogenase 229 IU/L (125-220) H 09/19/17 17:45 Total Protein 6.2 g/dL (6.0-8.0) 09/19/17 17:45 Albumin 3.1 g/dL (3.5-5.0) L 09/19/17 17:45 Globulin 3.1 g/dL (2.0-3.5) 09/19/17 17:45 Albumin/Globulin Ratio 1.0 (1.3-2.8) L 09/19/17 17:45 Ur Random Creatinine 77.9 mg/dL 09/19/17 17:40 U Random Total Protein 34.3 mg/dL 09/19/17 17:40 Protein/Creatinin Ratio 0.4 09/19/17 17:40 Blood Type A POSITIVE 09/19/17 17:45 Antibody Screen NEGATIVE 09/19/17 17:45 - Allergies Allergies/Adverse Reactions: Allergies Allergy/AdvReac Type Severity Reaction Status Date / Time dexamethasone Allergy Other Verified 05/20/17 10:18 ketorolac tromethamine Allergy Shortness Verified 05/20/17 10:18 [From Toradol] of Breath metoclopramide HCl Allergy Anxiety Verified 05/20/17 10:18 [From Reglan] naproxen sodium Allergy Shortness Verified 05/20/17 10:18 [From Treximet] of Breath sumatriptan [From Imitrex] Allergy Shortness Verified 05/20/17 10:18 of Breath sumatriptan succinate Allergy Shortness Verified 05/20/17 10:18 [From Treximet] of Breath - Acknowledgements Anesthesia Type Planned: Epidural Pt an Appropriate Candidate for the Planned Anesthesia: Yes Alternatives and Risks of Anesthesia Discussed w Pt/Guardian: Yes Pt/Guardian Understands and Agrees with Anesthesia Plan: Yes Additional Comments: Dr. Rubio notified of patient history and consulted concerning epidural and states safe to proceed. Dr. Marcial also states that patient is stable and has seen [facility] physician who is aware of her situation and also does not see any contraindication to epidural. Patient denies any questions or concerns. 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: Musculoskeletal History: Reports: Fibromyalgia Neurological History: Reports: Migraines, Other (See Below) Other Neuro History: fibromyalgia, psuedo cerebral tumor Psychiatric History: Reports: Anxiety, Depression Endocrine/Metabolic History: Reports: None Dermatologic History: Reports: None - Infectious Disease History Infectious Disease History: Reports: Chicken Pox - Past Surgical History HEENT Surgical History: Reports: None GI Surgical History: Reports: None - SUBSTANCE USE Smoking Status *Q: Never Smoker Tobacco Use Within Last Twelve Months: No Second Hand Smoke Exposure: No Days Per Week of Alcohol Use: 0 Recreational Drug Use History: No - HOME MEDS Home Medications: Home Meds Cholecalciferol (Vitamin D3) [Vitamin D3] 400 unit PO DAILY 03/08/17 [History] Magnesium 250 mg PO DAILY 03/08/17 [History] Ondansetron [Zofran] 4 mg PO Q4H #30 tab 03/08/17 [Rx] Vit No.129/Iron/FA [ One Daily Tablet] 1 tab PO DAILY 03/08/17 [History] Sertraline HCl [Zoloft] 200 mg PO DAILY 03/08/17 [History] buPROPion HCl [Wellbutrin Xl] 300 mg PO DAILY 03/08/17 [History] Promethazine HCl [Phenergan] 25 mg RC 05/20/17 [History] - CURRENT (IN HOUSE) MEDS Current Meds: Current Medications Benzocaine/Menthol (Cepacol Sore Throat) 1 lozenge MUCMEM ASDIRECTED PRN PRN Reason: Cough Last Admin: 09/20/17 16:15 Dose: 1 lozenge Butorphanol Tartrate (Stadol) 1 mg IVPUSH Q1H PRN PRN Reason: Pain Last Admin: 09/20/17 17:35 Dose: 1 mg Calcium Gluconate (Calcium Gluconate) 1 gm IV ASDIRECTED PRN PRN Reason: respiratory distress Carboprost Tromethamine (Hemabate Ds) 250 mcg IM ASDIRECTED PRN PRN Reason: Post Hemorrhage Ampicillin Sodium 1 gm/ Sodium (Chloride) 50 mls @ 100 mls/hr IV Q4H MARIALUISA Last Admin: 09/20/17 18:04 Dose: 100 mls/hr Magnesium Sulfate (Magnesium Sulfate 40 Gm In Water 1000 Ml) 40 gm in 1,000 mls @ 50 mls/hr IV ASDIRECTED MARIALUISA PRN Reason: 2 GM/HR Last Admin: 09/20/17 14:36 Dose: 2 gm/hr, 50 mls/hr Oxytocin/Sodium Chloride (Oxytocin 30 Unit/500 Ml-Ns) 30 unit in 500 mls @ 999 mls/hr IV TITRATE MARIALUISA Oxytocin/Sodium Chloride (Oxytocin 30 Unit/500 Ml-Ns) 30 unit in 500 mls @ 2 mls/hr IV TITRATE MARIALUISA; 2 MUNITS/MIN PRN Reason: Protocol Last Titration: 09/20/17 20:47 Dose: 10 munits/min, 10 mls/hr Sodium Chloride (Normal Saline) 1,000 mls @ 125 mls/hr IV ASDIRECTED MARIALUISA Last Admin: 09/19/17 18:02 Dose: 5 mls/hr Lidocaine HCl (Xylocaine 1%) 50 ml INJECT .ONCE PRN PRN Reason: Laceration repair Methylergonovine Maleate (Methergine) 0.2 mg IM ASDIRECTED PRN PRN Reason: Post Hemorrhage Misoprostol (Cytotec) 200 mcg PO .ONCE PRN PRN Reason: Post Hemorrhage Misoprostol (Cytotec) 25 mcg VAG Q4H PRN PRN Reason: Cervical Ripening Last Admin: 09/20/17 07:44 Dose: 25 mcg Nalbuphine HCl (Nubain) 10 mg IVPUSH Q1H PRN PRN Reason: Pain (severe 7-10) Sodium Chloride (Saline Flush) 10 ml FLUSH ASDIRECTED PRN PRN Reason: Keep Vein Open Sodium Chloride (Saline Flush) 2.5 ml FLUSH ASDIRECTED PRN PRN Reason: Keep Vein Open Sterile Water (Sterile Water For Irrigation) 1,000 ml IRR ASDIRECTED PRN PRN Reason: delivery Terbutaline Sulfate (Brethine) 0.25 mg SUBCUT ASDIRECTED PRN PRN Reason: Tacysystole Discontinued Medications Acetaminophen (Tylenol Extra Strength) 1,000 mg PO ONETIME ONE Stop: 09/20/17 11:13 Last Admin: 09/20/17 11:19 Dose: 1,000 mg Acetaminophen/Butalbital/Caffeine (Fioricet 325-50-40 Mg) 1 tab PO ONETIME ONE Stop: 09/20/17 14:00 Last Admin: 09/20/17 14:17 Dose: 1 tab Acetaminophen/Butalbital/Caffeine (Fioricet 325-50-40 Mg) Confirm Administered Dose 1 tab .ROUTE .STK-MED ONE Stop: 09/20/17 14:12 Fentanyl (Sublimaze) Confirm Administered Dose 300 mcg .ROUTE .STK-MED ONE Stop: 09/20/17 19:57 Hydroxyzine Pamoate (Vistaril) 50 mg PO ONETIME ONE Stop: 09/19/17 22:18 Last Admin: 09/19/17 23:28 Dose: 50 mg Magnesium Sulfate (Magnesium Sulfate 4 Gm In Water 100 Ml) Confirm Administered Dose 100 mls @ as directed .ROUTE .STK-MED ONE Stop: 09/19/17 17:49 Last Admin: 09/19/17 18:04 Dose: 4 gm Ampicillin Sodium 2 gm/ Sodium (Chloride) 100 mls @ 200 mls/hr IV ONETIME ONE Stop: 09/19/17 18:29 Last Admin: 09/19/17 18:28 Dose: 200 mls/hr Magnesium Sulfate 4 gm/ Premix 100 mls @ 300 mls/hr IV .BOLUS ONE Stop: 09/19/17 17:53 Ropivacaine (Naropin 0.2%) Confirm Administered Dose 100 mls @ as directed .ROUTE .STK-MED ONE Stop: 09/20/17 19:56 Labetalol HCl (Normodyne) 20 mg IVPUSH ASDIRECTED ONE PRN Reason: Protocol Stop: 09/19/17 17:54 Last Admin: 09/19/17 20:44 Dose: 20 mg Labetalol HCl (Normodyne) Confirm Administered Dose 100 mg .ROUTE .STK-MED ONE Stop: 09/19/17 20:34 Misoprostol (Cytotec) 25 mcg PO ONETIME ONE Stop: 09/20/17 07:54 Last Admin: 09/20/17 08:00 Dose: 25 mcg Misoprostol (Cytotec) Confirm Administered Dose 25 mcg .ROUTE .STK-MED ONE Stop: 09/20/17 07:57 Misoprostol (Cytotec) 25 mcg PO ONETIME ONE Stop: 09/20/17 13:39 Last Admin: 09/20/17 14:21 Dose: 25 mcg Ropivacaine (Naropin 0.2%) Confirm Administered Dose 20 ml .ROUTE .STK-MED ONE Stop: 09/20/17 19:57
[2017-09-20] MEDS ORDERED: Phenylephrine 1% 10 MG/ML SDV ONE (21:47)
[2017-09-20] MEDS ORDERED: Ondansetron 4 MG/2 ML SDV ONE (22:17)
[2017-09-20] MEDS ORDERED: Ondansetron 4 MG/2 ML SDV IVPUSH ONE (22:22)
[2017-09-21] MEDS: Ampicillin 1 GM in Sodium Chloride 0.9% 50 ML IV SCH ×5 (02:10→17:59)
[2017-09-21] MEDS ORDERED: Ropivacaine 0.2% 2 MG/ML 20 ML SDV ONE (02:50)
[2017-09-21] MEDS ORDERED: fentaNYL 100 MCG/2 ML SDV ONE ×3 (04:42→20:31)
[2017-09-21] MEDS ORDERED: Bupivacaine 0.5% 10 ML SDV ONE ×3 (04:46→20:31)
--- NOTE | 2017-09-21 06:01 | PCM.SN ---
- Free Text/Narrative Note: To patient room ~0445 and patient crying with contractions and BP increased. Bolused with Fentanyl 100 mcg and Bupivacaine 0.5% 8 ml with slow relief. Patient just slightly moaning with contractions now and then asleep immediately. SBP down to 120's. Dr. Marcial being updated by RN.
[2017-09-21] MEDS: Sodium Chloride 0.9% 1,000 ML IV SCH (06:07)
--- NOTE | 2017-09-21 06:35 | PCM.SN ---
- Free Text/Narrative Note: Patient continues to have some discomfort with contractions. Bolused with 5 ml 0.5% Bupivacaine and then patient sleeping through next contractions. Awakened to check level with is T7
[2017-09-21] MEDS ORDERED: Ropivacaine 100 ML ONE ×2 (08:04→13:36)
[2017-09-21] MEDS: Benzocaine/Cetylpyridinium/Menthol Lozenge MUCMEM PRN (08:25)
[2017-09-21] MEDS ORDERED: Oxytocin/0.9 % Sodium Chloride 30 UNIT/500 ML BAG IV SCH (10:45)
[2017-09-21 13:47] LABS: CHLORIDE,CL 102 mmol/L (98-110); SODIUM,NA 133 mmol/L (136-146)
[2017-09-21] MEDS: Magnesium Sulfate/Water 40 GM/1,000 ML BAG IV SCH (13:54)
[2017-09-21] MEDS ORDERED: Lidocaine 2% 5 ML SDV ONE (19:25)
[2017-09-21] MEDS ORDERED: Nalbuphine 10 MG/1 ML Vial ONE ×2 (20:10→21:25)
[2017-09-21] MEDS ORDERED: ePHEDrine 50 MG/ML SDV ONE (20:10)
[2017-09-21] MEDS ORDERED: Ketorolac 30 MG/ML SDV ONE (20:10)
[2017-09-21] MEDS ORDERED: Dexamethasone 4 MG/ML 5 ML MDV ONE (20:10)
[2017-09-21] MEDS ORDERED: Ondansetron 4 MG/2 ML SDV ONE (20:10)
[2017-09-21] MEDS ORDERED: Oxytocin 10 Units/1 ML SDV ONE (20:10)
[2017-09-21] MEDS ORDERED: Sodium Chloride 0.9% 20 ML ONE ×2 (20:11→20:55)
[2017-09-21] MEDS ORDERED: Morphine PF 1 MG/ML Amp ONE (20:35)
[2017-09-21] MEDS ORDERED: ceFAZolin 1 GM Vial ONE (20:55)
[2017-09-21] MEDS ORDERED: Carboprost Tromethamine 250 MCG/1 ML Amp ONE (21:14)
[2017-09-21] MEDS ORDERED: Methylergonovine 0.2 MG/1 ML Amp ONE (21:14)
[2017-09-21] MEDS ORDERED: Octyl 2-Cyanoacrylate 1 Tube ONE (21:49)
[2017-09-21] MEDS ORDERED: Propofol 200 MG/20 ML SDV ONE (21:51)
[2017-09-21] MEDS ORDERED: Witch Hazel Medicated Pads 40/Jar TOP PRN (22:07)
[2017-09-21] MEDS ORDERED: Ondansetron 4 MG/2 ML SDV IVPUSH PRN (22:07)
[2017-09-21] MEDS ORDERED: Hydrocortisone 2.5% Crm 30 GM Tube TOP PRN (22:07)
[2017-09-21] MEDS ORDERED: Lanolin 100% Cream 7 GM Tube TOP PRN (22:07)
[2017-09-21] MEDS ORDERED: Bisacodyl 10 MG Supp RECTAL PRN (22:07)
[2017-09-21] MEDS ORDERED: diphenhydrAMINE 50 MG/ML SDV IVPUSH PRN ×2 (22:07→22:17)
[2017-09-21] MEDS ORDERED: Aluminum Hydroxide/Magnesium Hydroxide/Simethicone Susp 30 ML Cup PO PRN (22:07)
[2017-09-21] MEDS ORDERED: Acetaminophen/oxyCODONE 325-5 MG Tab PO PRN (22:07)
[2017-09-21] MEDS ORDERED: Lactated Ringers 1,000 ML IV SCH (22:15)
[2017-09-21] MEDS ORDERED: Nalbuphine 10 MG/1 ML Vial IVPUSH PRN (22:17)
[2017-09-21] MEDS ORDERED: Naloxone 0.4 MG/ML Syringe IVPUSH PRN (22:17)
--- NOTE | 2017-09-21 22:33 | PCM.OPNOTE ---
- General Post-Op/Procedure Note Date of Surgery/Procedure: 09/21/17 Operative Procedure(s): Primary LTCS Findings: Viable female APGARs 6, 8 weight 3110 gm. Intact placenta with 3V cord Pre Op Diagnosis: 37 week IUP. Preeclampsia. Arrest of descent Post-Op Diagnosis: Same Anesthesia Technique: Epidural Primary Surgeon: Leanna Orr Fluid Replacement, Intraop: 1,000 EBL in mLs: 600 Complications: none known Condition: Good Free Text/Narrative:: Intake & Output 09/21/17 09/21/17 09/21/17 06:59 14:59 22:59 Intake Total 917 Output Total 840 Balance 77 Dictation [id number]
--- NOTE | 2017-09-21 22:36 | PCM.POSTAN ---
POST ANESTHESIA ASSESSMENT - MENTAL STATUS Mental Status: Alert, Oriented - RESPIRATORY Respiratory Status: Respiratory Rate WNL, Airway Patent, O2 Saturation Stable - CARDIOVASCULAR CV Status: Pulse Rate WNL, Blood Pressure Stable - GASTROINTESTINAL GI Status: No Symptoms - POST OP HYDRATION Hydration Status: Adequate & Stable
[2017-09-22 05:06] LABS: CHLORIDE,CL 106 mmol/L (98-110); SODIUM,NA 134 mmol/L (136-146)
[2017-09-22] MEDS: Simethicone 80 MG Tab.Chew PO SCH ×4 (06:29→18:15)
[2017-09-22] MEDS ORDERED: Simethicone 80 MG Tab.Chew ONE (06:34)
--- NOTE | 2017-09-22 08:17 | PCM48HPAN ---
Post Anesthesia Note - EVALUATION WITHIN 48HRS OF ANESTHETIC Vital Signs in Normal Range: Yes (HTN remains from pre-induction) Patient Participated in Evaluation: Yes Respiratory Function Stable: Yes Airway Patent: Yes Cardiovascular Function Stable: Yes Hydration Status Stable: Yes Pain Control Satisfactory: Yes Nausea and Vomiting Control Satisfactory: Yes Mental Status Recovered: Yes - COMMENTS/OBSERVATIONS Free Text/Narrative:: Pt continues to be on Magnesium infusion at this time.
[2017-09-22] MEDS: Docusate Sodium 100 MG Cap PO SCH (08:18)
[2017-09-22] MEDS: Acetaminophen/oxyCODONE 325-5 MG Tab PO PRN ×3 (08:18→16:18)
--- NOTE | 2017-09-22 09:29 | PCM.PNPP ---
- General Info Date of Service: 09/22/17 Subjective Update: going fairly well--pain is controlled. Denies nausea. Functional Status: Reports: Pain Controlled - Review of Systems General: Denies: Fever, Weakness Pulmonary: Denies: Shortness of Breath Cardiovascular: Denies: Chest Pain, Palpitations, Lightheadedness Gastrointestinal: Reports: Difficulty Swallowing. Denies: Abdominal Pain, Diarrhea Genitourinary: Denies: Flank Pain Psychiatric: Reports: No Symptoms - General Info Date of Service: 09/22/17 - Patient Data Vital Signs - Most Recent: Last Vital Signs Temp 36.3 C 09/22/17 08:00 Pulse 100 09/22/17 09:10 Resp 15 09/22/17 09:10 BP 124/64 09/22/17 09:10 Pulse Ox 94 L 09/22/17 09:10 Weight - Most Recent: 125.645 kg I&O - Last 24 Hours: Intake & Output 09/21/17 09/22/17 09/22/17 22:59 06:59 14:59 Intake Total 1500 Output Total 350 495 Balance 1150 -495 Lab Results - Last 24 Hours: Laboratory Results - last 24 hr 09/21/17 09/21/17 09/21/17 Range/Units 09:52 12:49 12:49 WBC 16.81 H (4.0-11.0) K/uL RBC 3.71 L (4.30-5.90) M/uL Hgb 11.0 L (12.0-16.0) g/dL Hct 32.7 L (36.0-46.0) % MCV 88.1 (80.0-98.0) fL MCH 29.6 (27.0-32.0) pg MCHC 33.6 (31.0-37.0) g/dL RDW Std Deviation 41.3 (28.0-62.0) fl RDW Coeff of Paige 13 (11.0-15.0) % Plt Count 198 (150-400) K/uL MPV 11.20 (7.40-12.00) fL Add Manual Diff Neutrophils % (Manual) (48.0-80.0) % Band Neutrophils % % Lymphocytes % (Manual) (16.0-40.0) % Monocytes % (Manual) (0.0-15.0) % Nucleated RBC % 0.4 /100WBC Absolute Seg Neuts (1.4-5.7) Band Neutrophils # Lymphocytes # (Manual) (0.6-2.4) Monocytes # (Manual) (0.0-0.8) Nucleated RBCs # 0 K/uL Cord ABG pH (7.18-7.38) Cord ABG Base Excess (-10--2) Cord VBG pH (7.25-7.45) Cord VBG Base Excess (-10--2) Sodium 133 L (136-146) mmol/L Potassium 3.7 (3.5-5.1) mmol/L Chloride 102 (98-110) mmol/L Carbon Dioxide 15 L (21-31) mmol/L BUN 12 (6.0-23.0) mg/dL Creatinine 1.0 (0.6-1.5) mg/dL Est Cr Clr Drug Dosing 70.39 mL/min Estimated GFR (MDRD) > 60.0 ml/min Glucose 90 (60-110) mg/dL Calcium 6.8 L (8.8-10.8) mg/dL Magnesium 6.5 H (1.5-2.3) mEq/L Total Bilirubin 0.7 (0.1-1.5) mg/dL AST 28 (5-40) IU/L ALT 19 (8-54) IU/L Alkaline Phosphatase 155 H (40-150) Total Protein 5.6 L (6.0-8.0) g/dL Albumin 3.1 L (3.5-5.0) g/dL Globulin 2.5 (2.0-3.5) g/dL Albumin/Globulin Ratio 1.2 L (1.3-2.8) 09/21/17 09/21/17 09/21/17 Range/Units 16:15 21:20 21:20 WBC (4.0-11.0) K/uL RBC (4.30-5.90) M/uL Hgb (12.0-16.0) g/dL Hct (36.0-46.0) % MCV (80.0-98.0) fL MCH (27.0-32.0) pg MCHC (31.0-37.0) g/dL RDW Std Deviation (28.0-62.0) fl RDW Coeff of Paige (11.0-15.0) % Plt Count (150-400) K/uL MPV (7.40-12.00) fL Add Manual Diff Neutrophils % (Manual) (48.0-80.0) % Band Neutrophils % % Lymphocytes % (Manual) (16.0-40.0) % Monocytes % (Manual) (0.0-15.0) % Nucleated RBC % /100WBC Absolute Seg Neuts (1.4-5.7) Band Neutrophils # Lymphocytes # (Manual) (0.6-2.4) Monocytes # (Manual) (0.0-0.8) Nucleated RBCs # K/uL Cord ABG pH 7.230 (7.18-7.38) Cord ABG Base Excess -8 (-10--2) Cord VBG pH 7.290 (7.25-7.45) Cord VBG Base Excess -9 (-10--2) Sodium (136-146) mmol/L Potassium (3.5-5.1) mmol/L Chloride (98-110) mmol/L Carbon Dioxide (21-31) mmol/L BUN (6.0-23.0) mg/dL Creatinine (0.6-1.5) mg/dL Est Cr Clr Drug Dosing mL/min Estimated GFR (MDRD) ml/min Glucose (60-110) mg/dL Calcium (8.8-10.8) mg/dL Magnesium 6.3 H (1.5-2.3) mEq/L Total Bilirubin (0.1-1.5) mg/dL AST (5-40) IU/L ALT (8-54) IU/L Alkaline Phosphatase (40-150) Total Protein (6.0-8.0) g/dL Albumin (3.5-5.0) g/dL Globulin (2.0-3.5) g/dL Albumin/Globulin Ratio (1.3-2.8) 09/21/17 09/22/17 09/22/17 Range/Units 22:22 04:25 04:25 WBC 18.73 H (4.0-11.0) K/uL RBC 3.20 L (4.30-5.90) M/uL Hgb 9.4 L (12.0-16.0) g/dL Hct 28.2 L (36.0-46.0) % MCV 88.1 (80.0-98.0) fL MCH 29.4 (27.0-32.0) pg MCHC 33.3 (31.0-37.0) g/dL RDW Std Deviation 42.4 (28.0-62.0) fl RDW Coeff of Paige 13 (11.0-15.0) % Plt Count 223 (150-400) K/uL MPV 11.20 (7.40-12.00) fL Add Manual Diff YES Neutrophils % (Manual) 82 H (48.0-80.0) % Band Neutrophils % 2 % Lymphocytes % (Manual) 11 L (16.0-40.0) % Monocytes % (Manual) 5 (0.0-15.0) % Nucleated RBC % 0.4 /100WBC Absolute Seg Neuts 15.4 H (1.4-5.7) Band Neutrophils # 0.4 Lymphocytes # (Manual) 2.1 (0.6-2.4) Monocytes # (Manual) 0.9 H (0.0-0.8) Nucleated RBCs # 0 K/uL Cord ABG pH (7.18-7.38) Cord ABG Base Excess (-10--2) Cord VBG pH (7.25-7.45) Cord VBG Base Excess (-10--2) Sodium 134 L (136-146) mmol/L Potassium 3.7 (3.5-5.1) mmol/L Chloride 106 (98-110) mmol/L Carbon Dioxide 16 L (21-31) mmol/L BUN 14 (6.0-23.0) mg/dL Creatinine 1.0 (0.6-1.5) mg/dL Est Cr Clr Drug Dosing 70.39 mL/min Estimated GFR (MDRD) > 60.0 ml/min Glucose 146 H (60-110) mg/dL Calcium 6.6 L (8.8-10.8) mg/dL Magnesium 5.1 H (1.5-2.3) mEq/L Total Bilirubin 0.4 (0.1-1.5) mg/dL AST 19 (5-40) IU/L ALT 14 (8-54) IU/L Alkaline Phosphatase 134 (40-150) Total Protein 5.5 L (6.0-8.0) g/dL Albumin 2.7 L (3.5-5.0) g/dL Globulin 2.8 (2.0-3.5) g/dL Albumin/Globulin Ratio 1.0 L (1.3-2.8) 09/22/17 Range/Units 04:25 WBC (4.0-11.0) K/uL RBC (4.30-5.90) M/uL Hgb (12.0-16.0) g/dL Hct (36.0-46.0) % MCV (80.0-98.0) fL MCH (27.0-32.0) pg MCHC (31.0-37.0) g/dL RDW Std Deviation (28.0-62.0) fl RDW Coeff of Paige (11.0-15.0) % Plt Count (150-400) K/uL MPV (7.40-12.00) fL Add Manual Diff Neutrophils % (Manual) (48.0-80.0) % Band Neutrophils % % Lymphocytes % (Manual) (16.0-40.0) % Monocytes % (Manual) (0.0-15.0) % Nucleated RBC % /100WBC Absolute Seg Neuts (1.4-5.7) Band Neutrophils # Lymphocytes # (Manual) (0.6-2.4) Monocytes # (Manual) (0.0-0.8) Nucleated RBCs # K/uL Cord ABG pH (7.18-7.38) Cord ABG Base Excess (-10--2) Cord VBG pH (7.25-7.45) Cord VBG Base Excess (-10--2) Sodium (136-146) mmol/L Potassium (3.5-5.1) mmol/L Chloride (98-110) mmol/L Carbon Dioxide (21-31) mmol/L BUN (6.0-23.0) mg/dL Creatinine (0.6-1.5) mg/dL Est Cr Clr Drug Dosing mL/min Estimated GFR (MDRD) ml/min Glucose (60-110) mg/dL Calcium (8.8-10.8) mg/dL Magnesium 4.4 H (1.5-2.3) mEq/L Total Bilirubin (0.1-1.5) mg/dL AST (5-40) IU/L ALT (8-54) IU/L Alkaline Phosphatase (40-150) Total Protein (6.0-8.0) g/dL Albumin (3.5-5.0) g/dL Globulin (2.0-3.5) g/dL Albumin/Globulin Ratio (1.3-2.8) Med Orders - Current: Current Medications Al Hydroxide/Mg Hydroxide (Mag-Al Plus) 30 ml PO Q8H PRN PRN Reason: Heartburn Benzocaine/Menthol (Cepacol Sore Throat) 1 lozenge MUCMEM ASDIRECTED PRN PRN Reason: Cough Last Admin: 09/21/17 08:25 Dose: 1 lozenge Bisacodyl (Dulcolax) 10 mg RECTAL .ONCE PRN PRN Reason: Constipation Calcium Gluconate (Calcium Gluconate) 1 gm IV ASDIRECTED PRN PRN Reason: respiratory distress Carboprost Tromethamine (Hemabate Ds) 250 mcg IM ASDIRECTED PRN PRN Reason: Post Hemorrhage Diphenhydramine HCl (Benadryl) 25 mg IVPUSH Q6H PRN PRN Reason: Itching or Nausea Diphenhydramine HCl (Benadryl) 25 mg IVPUSH Q4H PRN PRN Reason: Itching Stop: 09/22/17 22:17 Docusate Sodium (Colace) 100 mg PO BID MARIALUISA Last Admin: 09/22/17 08:18 Dose: 100 mg Emollient Ointment (Lansinoh Hpa) 0 gm TOP ASDIRECTED PRN PRN Reason: Sore Nipples Hydrocortisone (Hydrocortisone 2.5% Crm) 0 gm TOP Q4H PRN PRN Reason: Hemorrhoids Magnesium Sulfate (Magnesium Sulfate 40 Gm In Water 1000 Ml) 40 gm in 1,000 mls @ 50 mls/hr IV ASDIRECTED MARIALUISA PRN Reason: 2 GM/HR Last Admin: 09/21/17 13:54 Dose: 1 gm/hr, 25 mls/hr Oxytocin/Sodium Chloride (Oxytocin 30 Unit/500 Ml-Ns) 30 unit in 500 mls @ 999 mls/hr IV TITRATE MARIALUISA Sodium Chloride (Normal Saline) 1,000 mls @ 125 mls/hr IV ASDIRECTED MARIALUISA Last Infusion: 09/21/17 11:08 Dose: 25 mls/hr Oxytocin/Sodium Chloride (Oxytocin 30 Unit/500 Ml-Ns) 30 unit in 500 mls @ 2 mls/hr IV TITRATE MARIALUISA; 2 MUNITS/MIN PRN Reason: Protocol Last Infusion: 09/21/17 18:12 Dose: 40 munits/min, 40 mls/hr Lactated Ringer's (Ringers, Lactated) 1,000 mls @ 125 mls/hr IV ASDIRECTED MARIALUISA Ibuprofen (Motrin) 800 mg PO Q8H PRN PRN Reason: mild pain or fever Methylergonovine Maleate (Methergine) 0.2 mg IM ASDIRECTED PRN PRN Reason: Post Hemorrhage Misoprostol (Cytotec) 200 mcg PO .ONCE PRN PRN Reason: Post Hemorrhage Nalbuphine HCl (Nubain) 5 mg IVPUSH Q3H PRN PRN Reason: Pruritis Stop: 09/22/17 22:17 Naloxone HCl (Narcan) 0.1 mg IVPUSH ONETIME PRN PRN Reason: Respiratory Depression Stop: 09/22/17 22:17 Ondansetron HCl (Zofran) 4 mg IVPUSH Q4H PRN PRN Reason: Nausea/Vomiting Oxycodone/Acetaminophen (Percocet 325-5 Mg) 1 tab PO Q4H PRN PRN Reason: Pain (moderate 4-6) Last Admin: 09/22/17 08:18 Dose: 1 tab Oxycodone/Acetaminophen (Percocet 325-5 Mg) 2 tab PO Q4H PRN PRN Reason: Pain (moderate 4-6) Simethicone (Simethicone) 160 mg PO QID [facility] Last Admin: 09/22/17 06:32 Dose: 160 mg Sodium Chloride (Saline Flush) 10 ml FLUSH ASDIRECTED PRN PRN Reason: Keep Vein Open Sodium Chloride (Saline Flush) 2.5 ml FLUSH ASDIRECTED PRN PRN Reason: Keep Vein Open Witch Fiordaliza (Tucks) 1 pad TOP ASDIRECTED PRN PRN Reason: Perineal Comfort Measure Discontinued Medications Acetaminophen (Tylenol Extra Strength) 1,000 mg PO ONETIME ONE Stop: 09/20/17 11:13 Last Admin: 09/20/17 11:19 Dose: 1,000 mg Acetaminophen/Butalbital/Caffeine (Fioricet 325-50-40 Mg) 1 tab PO ONETIME ONE Stop: 09/20/17 14:00 Last Admin: 09/20/17 14:17 Dose: 1 tab Acetaminophen/Butalbital/Caffeine (Fioricet 325-50-40 Mg) Confirm Administered Dose 1 tab .ROUTE .STK-MED ONE Stop: 09/20/17 14:12 Bupivacaine HCl (Sensorcaine-Mpf 0.5%) Confirm Administered Dose 10 ml .ROUTE .STK-MED ONE Stop: 09/21/17 04:47 Bupivacaine HCl (Sensorcaine-Mpf 0.5%) Confirm Administered Dose 10 ml .ROUTE .STK-MED ONE Stop: 09/21/17 06:23 Bupivacaine HCl (Sensorcaine-Mpf 0.5%) Confirm Administered Dose 20 ml .ROUTE .STK-MED ONE Stop: 09/21/17 20:32 Butorphanol Tartrate (Stadol) 1 mg IVPUSH Q1H PRN PRN Reason: Pain Last Admin: 09/20/17 17:35 Dose: 1 mg Carboprost Tromethamine (Hemabate Ds) Confirm Administered Dose 250 mcg .ROUTE .STK-MED ONE Stop: 09/21/17 21:15 Cefazolin Sodium (Ancef) Confirm Administered Dose 3 gm .ROUTE .STK-MED ONE Stop: 09/21/17 20:56 Dexamethasone (Dexamethasone) Confirm Administered Dose 20 mg .ROUTE .STK-MED ONE Stop: 09/21/17 20:11 Ephedrine Sulfate (Ephedrine Sulfate) Confirm Administered Dose 50 mg .ROUTE .STK-MED ONE Stop: 09/21/17 20:11 Fentanyl (Sublimaze) Confirm Administered Dose 300 mcg .ROUTE .STK-MED ONE Stop: 09/20/17 19:57 Fentanyl (Sublimaze) Confirm Administered Dose 100 mcg .ROUTE .STK-MED ONE Stop: 09/21/17 04:43 Fentanyl (Sublimaze) Confirm Administered Dose 100 mcg .ROUTE .STK-MED ONE Stop: 09/21/17 13:37 Fentanyl (Sublimaze) Confirm Administered Dose 100 mcg .ROUTE .STK-MED ONE Stop: 09/21/17 20:32 Hydroxyzine Pamoate (Vistaril) 50 mg PO ONETIME ONE Stop: 09/19/17 22:18 Last Admin: 09/19/17 23:28 Dose: 50 mg Magnesium Sulfate (Magnesium Sulfate 4 Gm In Water 100 Ml) Confirm Administered Dose 100 mls @ as directed .ROUTE .[facility]-MED ONE Stop: 09/19/17 17:49 Last Admin: 09/19/17 18:04 Dose: 4 gm Ampicillin Sodium 2 gm/ Sodium (Chloride) 100 mls @ 200 mls/hr IV ONETIME ONE Stop: 09/19/17 18:29 Last Admin: 09/19/17 18:28 Dose: 200 mls/hr Ampicillin Sodium 1 gm/ Sodium (Chloride) 50 mls @ 100 mls/hr IV Q4H MARIALUISA Last Admin: 09/21/17 17:59 Dose: 100 mls/hr Magnesium Sulfate 4 gm/ Premix 100 mls @ 300 mls/hr IV .BOLUS ONE Stop: 09/19/17 17:53 Oxytocin/Sodium Chloride (Oxytocin 30 Unit/500 Ml-Ns) 30 unit in 500 mls @ 2 mls/hr IV TITRATE MARIALUISA; 2 MUNITS/MIN PRN Reason: Protocol Last Titration: 09/21/17 13:15 Dose: 38 munits/min, 38 mls/hr Ropivacaine (Naropin 0.2%) Confirm Administered Dose 100 mls @ as directed .ROUTE .[facility] ONE Stop: 09/20/17 19:56 Ropivacaine (Naropin 0.2%) Confirm Administered Dose 100 mls @ as directed .ROUTE .[facility] ONE Stop: 09/21/17 08:05 Ropivacaine (Naropin 0.2%) Confirm Administered Dose 100 mls @ [facility] Stop: 09/21/17 13:37 Sodium Chloride (Normal Saline) Confirm Administered Dose 20 mls @ as directed [facility] Stop: 09/21/17 20:12 Sodium Chloride (Normal Saline) Confirm Administered Dose 20 mls @ as directed [facility] Stop: 09/21/17 20:56 Ketorolac Tromethamine (Toradol) Confirm Administered Dose 30 mg .ROUTE .[facility] ONE Stop: 09/21/17 20:11 Labetalol HCl (Normodyne) 20 mg IVPUSH ASDIRECTED ONE PRN Reason: Protocol Stop: 09/19/17 17:54 Last Admin: 09/19/17 20:44 Dose: 20 mg Labetalol HCl (Normodyne) Confirm Administered Dose 100 mg .ROUTE .STK-MED ONE Stop: 09/19/17 20:34 Lidocaine (Xylocaine-Mpf 2%) Confirm Administered Dose 5 ml .ROUTE .STK-MED ONE Stop: 09/21/17 19:26 Lidocaine HCl (Xylocaine 1%) 50 ml INJECT .ONCE PRN PRN Reason: Laceration repair Methylergonovine Maleate (Methergine) Confirm Administered Dose 0.2 mg .ROUTE .STK-MED ONE Stop: 09/21/17 21:15 Misoprostol (Cytotec) 25 mcg VAG Q4H PRN PRN Reason: Cervical Ripening Last Admin: 09/20/17 07:44 Dose: 25 mcg Misoprostol (Cytotec) 25 mcg PO ONETIME ONE Stop: 09/20/17 07:54 Last Admin: 09/20/17 08:00 Dose: 25 mcg Misoprostol (Cytotec) Confirm Administered Dose 25 mcg .ROUTE .STK-MED ONE Stop: 09/20/17 07:57 Misoprostol (Cytotec) 25 mcg PO ONETIME ONE Stop: 09/20/17 13:39 Last Admin: 09/20/17 14:21 Dose: 25 mcg Morphine Sulfate (Duramorph Pf) Confirm Administered Dose 1 mg .ROUTE .STK-MED ONE Stop: 09/21/17 20:36 Nalbuphine HCl (Nubain) 10 mg IVPUSH Q1H PRN PRN Reason: Pain (severe 7-10) Nalbuphine HCl (Nubain) Confirm Administered Dose 10 mg .ROUTE .STK-MED ONE Stop: 09/21/17 20:11 Nalbuphine HCl (Nubain) Confirm Administered Dose 10 mg .ROUTE .STK-MED ONE Stop: 09/21/17 21:26 Octyl Cyanoacrylate (Dermabond Advance) Confirm Administered Dose 1 applic .ROUTE .STK-MED ONE Stop: 09/21/17 21:50 Ondansetron HCl (Zofran) Confirm Administered Dose 4 mg .ROUTE .STK-MED ONE Stop: 09/20/17 22:18 Ondansetron HCl (Zofran) 4 mg IVPUSH ONETIME ONE Stop: 09/20/17 22:23 Last Admin: 09/20/17 22:43 Dose: 4 mg Ondansetron HCl (Zofran) Confirm Administered Dose 4 mg .ROUTE .STK-MED ONE Stop: 09/21/17 20:11 Oxytocin (Pitocin) Confirm Administered Dose 30 unit .ROUTE .STK-MED ONE Stop: 09/21/17 20:11 Phenylephrine HCl (James-Synephrine) Confirm Administered Dose 10 mg .ROUTE .STK- MED ONE Stop: 09/20/17 21:48 Propofol (Diprivan 20 Ml) Confirm Administered Dose 200 mg .ROUTE .STK-MED ONE Stop: 09/21/17 21:52 Ropivacaine (Naropin 0.2%) Confirm Administered Dose 20 ml .ROUTE .STK-MED ONE Stop: 09/20/17 19:57 Ropivacaine (Naropin 0.2%) Confirm Administered Dose 20 ml .ROUTE .STK-MED ONE Stop: 09/21/17 02:51 Simethicone (Simethicone) Confirm Administered Dose 80 mg .ROUTE .STK-MED ONE Stop: 09/22/17 06:35 Sterile Water (Sterile Water For Irrigation) 1,000 ml IRR ASDIRECTED PRN PRN Reason: delivery Terbutaline Sulfate (Brethine) 0.25 mg SUBCUT ASDIRECTED PRN PRN Reason: Tacysystole - Infant Interaction Support Person: - Recovery Exam Fundal Tone: Firm Fundal Level: At Umbilicus Fundal Placement: Midline Lochia Amount: Small Lochia Color: Rubra/Red Perineum Description: Intact, Minimal Bruising/Swelling, Edematous Episiotomy/Laceration: Approximated Bladder Status: Nonpalpable Urinary Elimination: Indwelling Catheter - Exam General: Alert Lungs: Normal Respiratory Effort Cardiovascular: Regular Rate, Regular Rhythm GI/Abdominal Exam: Soft, Distended (mildly), Tender (near incision) Extremities: Pedal Edema (2+). No: Harish's Sign Skin: Warm, Dry Wound/Incisions: Dressing Dry and Intact Psy/Mental Status: Alert - Problem List & Annotations (1) Preeclampsia SNOMED Code(s): 975526522 Code(s): O14.90 - UNSPECIFIED PRE-ECLAMPSIA, UNSPECIFIED TRIMESTER Status: Acute Current Visit: Yes (2) delivery delivered SNOMED Code(s): 894393301 Code(s): O82 - ENCOUNTER FOR DELIVERY WITHOUT INDICATION Status: Acute Current Visit: Yes - Problem List Review Problem List Initiated/Reviewed/Updated: Yes - My Orders Last 24 Hours: My Active Orders 09/21/17 22:07 Patient Status [ADT] Routine Ambulate [RC] PER UNIT ROUTINE May Shower [RC] ASDIRECTED Notify Provider Intake and Out [RC] ASDIRECTED Notify Provider Vital Signs [RC] ASDIRECTED RT Incentive Spirometry [RC] Q2HWA Acetaminophen/oxyCODONE [Percocet 325-5 MG] 1 tab PO Q4H PRN Acetaminophen/oxyCODONE [Percocet 325-5 MG] 2 tab PO Q4H PRN Alum Hydrox/Mag Hydrox/Simeth [Mag-Al Plus] 30 ml PO Q8H PRN Bisacodyl [Dulcolax] 10 mg RECTAL .ONCE PRN Hydrocortisone [Hydrocortisone 2.5% Crm] See Dose Instructions TOP Q4H PRN Lanolin [Lansinoh HPA] See Dose Instructions TOP ASDIRECTED PRN Ondansetron [Zofran] 4 mg IVPUSH Q4H PRN Witch Fiordaliza [Tucks] 1 pad TOP ASDIRECTED PRN diphenhydrAMINE [Benadryl] 25 mg IVPUSH Q6H PRN Abdominal Binder [OM.PC] Routine Assess Lochia [WOMSER] Per Unit Routine Assess Uterine Involution [WOMSER] Per Unit Routine Breast Pump [WOMSER] Per Unit Routine Heat Therapy [OM.PC] Routine Ice Therapy [OM.PC] Routine Peripheral IV Discontinue [OM.PC] Routine Sequential Compression Device [OM.PC] Per Unit Routine 09/21/17 22:08 Antiembolic Devices [RC] PER UNIT ROUTINE 09/21/17 22:15 Lactated Ringers [Ringers, Lactated] 1,000 ml IV ASDIRECTED 09/21/17 22:16 Bedrest [RC] ASDIRECTED Communication Order [RC] PRN Notify Provider [RC] PRN 09/21/17 22:30 Deep Tendon Reflexes [WOMSER] Q1H 09/21/17 23:30 Deep Tendon Reflexes [WOMSER] [facility] 09/22/17 00:00 Simethicone 160 mg PO QID 09/22/17 00:30 Deep Tendon Reflexes [WOMSER] [facility] 09/22/17 01:30 Deep Tendon Reflexes [WOMSER] [facility] 09/22/17 02:00 Ibuprofen [Motrin] 800 mg PO Q8H PRN 09/22/17 02:30 Deep Tendon Reflexes [WOMSER] [facility] 09/22/17 03:30 Deep Tendon Reflexes [WOMSER] [facility] 09/22/17 04:30 Deep Tendon Reflexes [WOMSER] [facility] 09/22/17 05:30 Deep Tendon Reflexes [WOMSER] [facility] 09/22/17 06:30 Deep Tendon Reflexes [WOMSER] [facility] 09/22/17 07:30 Deep Tendon Reflexes [WOMSER] [facility] 09/22/17 08:30 Deep Tendon Reflexes [WOMSER] [facility] 09/22/17 09:00 Docusate Sodium [Colace] 100 mg PO BID 09/22/17 09:30 Deep Tendon Reflexes [WOMSER] [facility] 09/22/17 10:30 Deep Tendon Reflexes [WOMSER] [facility] 09/22/17 11:30 Deep Tendon Reflexes [WOMSER] [facility] 09/22/17 12:30 Deep Tendon Reflexes [WOMSER] [facility] 09/22/17 13:30 Deep Tendon Reflexes [WOMSER] [facility] 09/22/17 14:30 Deep Tendon Reflexes [WOMSER] [facility] 09/22/17 15:30 Deep Tendon Reflexes [WOMSER] [facility] 09/22/17 16:30 Deep Tendon Reflexes [WOMSER] [facility] 09/22/17 17:30 Deep Tendon Reflexes [WOMSER] [facility] 09/22/17 18:30 Deep Tendon Reflexes [WOMSER] [facility] 09/22/17 19:30 Deep Tendon Reflexes [WOMSER] [facility] 09/22/17 20:30 Deep Tendon Reflexes [WOMSER] [facility] 09/22/17 21:30 Deep Tendon Reflexes [WOMSER] Q1H - Assessment Assessment:: POD 1 status post Primary LTCS Preeclampsia - Plan Plan:: Patient is resting now, continue cares with magnesium recovery. BPs are stable, but not diuresing yet. Labs are reassuring this morning.
--- NOTE | 2017-09-22 13:03 | PCM48HPAN ---
Post Anesthesia Note - EVALUATION WITHIN 48HRS OF ANESTHETIC Vital Signs in Normal Range: Yes Patient Participated in Evaluation: Yes Respiratory Function Stable: Yes Airway Patent: Yes Cardiovascular Function Stable: Yes Hydration Status Stable: Yes Pain Control Satisfactory: Yes Nausea and Vomiting Control Satisfactory: Yes Mental Status Recovered: Yes - COMMENTS/OBSERVATIONS Free Text/Narrative:: Recovered from epidural anesthetic, VSS, Baby is fine, good post op analgesia reported.
[2017-09-22] MEDS ORDERED: Labetalol 100 MG/20 ML MDV IVPUSH PRN (18:08)
[2017-09-22] MEDS ORDERED: Promethazine 25 MG/ML SDV IM ONE (20:03)
[2017-09-22] MEDS ORDERED: Furosemide 20 MG/2 ML VIAL IVPUSH ONE (22:25)
[2017-09-23] MEDS: Acetaminophen/oxyCODONE 325-5 MG Tab PO PRN ×5 (00:25→20:53)
[2017-09-23] MEDS: Simethicone 80 MG Tab.Chew PO SCH ×4 (00:25→17:28)
[2017-09-23] MEDS: Docusate Sodium 100 MG Cap PO SCH ×4 (00:26→20:53)
[2017-09-23] MEDS: Ibuprofen 800 MG Tab PO PRN ×3 (06:01→22:35)
[2017-09-23] MEDS: Labetalol 100 MG Tab PO SCH ×2 (07:19→21:17)
--- NOTE | 2017-09-23 08:55 | PCM.PNPP ---
- General Info Date of Service: 09/23/17 Subjective Update: Patient became more hypertensive yesterday with BPs ranging in 170-180/90-100s. She received iv labetalol and lasix. She is voiding and has voided almost 4 liters since last night. She had nausea when up to void last night, but improved this morning. Started oral labetalol 200 mg bid this morning and will monitor. Most likely will diurese further this afternoon unless spontaneously continues to diurese. She denies chest pain or shortness of breath. Denies visual changes. Denies headache. Magnesium discontinued this morning as BPs in 140/70-80s range. Functional Status: Reports: Pain Controlled, Tolerating Diet, Urinating - Review of Systems General: Reports: Fatigue. Denies: Fever, Weakness Pulmonary: Denies: Shortness of Breath, Wheezing Cardiovascular: Denies: Chest Pain, Palpitations, Lightheadedness Gastrointestinal: Reports: Flatus, Nausea (improved this morning). Denies: Vomiting Genitourinary: Denies: Flank Pain Psychiatric: Denies: Confusion, Depression - Patient Data Vital Signs - Most Recent: Last Vital Signs Temp 36.6 C 09/23/17 07:19 Pulse 92 09/23/17 07:19 Resp 18 09/23/17 07:19 BP 146/88 H 09/23/17 07:19 Pulse Ox 95 09/23/17 07:19 Weight - Most Recent: 121.5 kg I&O - Last 24 Hours: Intake & Output 09/22/17 09/23/17 09/23/17 22:59 06:59 14:59 Intake Total 270 Output Total 545 1600 Balance -545 -2305 Lab Results - Last 24 Hours: Laboratory Results - last 24 hr 09/22/17 09/22/17 09/23/17 Range/Units 10:36 16:31 01:55 Magnesium 4.5 H 4.2 H 4.0 H (1.5-2.3) mEq/L Micro Results - Last 24 Hours: Microbiology 09/19/17 15:50 Group B Streptococcus Culture - Final Vaginal/Rectal NEGATIVE STREP GROUP B Med Orders - Current: Current Medications Al Hydroxide/Mg Hydroxide (Mag-Al Plus) 30 ml PO Q8H PRN PRN Reason: Heartburn Benzocaine/Menthol (Cepacol Sore Throat) 1 lozenge MUCMEM ASDIRECTED PRN PRN Reason: Cough Last Admin: 09/21/17 08:25 Dose: 1 lozenge Bisacodyl (Dulcolax) 10 mg RECTAL .ONCE PRN PRN Reason: Constipation Calcium Gluconate (Calcium Gluconate) 1 gm IV ASDIRECTED PRN PRN Reason: respiratory distress Carboprost Tromethamine (Hemabate Ds) 250 mcg IM ASDIRECTED PRN PRN Reason: Post Hemorrhage Diphenhydramine HCl (Benadryl) 25 mg IVPUSH Q6H PRN PRN Reason: Itching or Nausea Docusate Sodium (Colace) 100 mg PO BID MARIALUISA Last Admin: 09/23/17 08:02 Dose: Not Given Emollient Ointment (Lansinoh Hpa) 0 gm TOP ASDIRECTED PRN PRN Reason: Sore Nipples Hydrocortisone (Hydrocortisone 2.5% Crm) 0 gm TOP Q4H PRN PRN Reason: Hemorrhoids Oxytocin/Sodium Chloride (Oxytocin 30 Unit/500 Ml-Ns) 30 unit in 500 mls @ 999 mls/hr IV TITRATE MARIALUISA Sodium Chloride (Normal Saline) 1,000 mls @ 125 mls/hr IV ASDIRECTED MARIALUISA Last Infusion: 09/22/17 19:42 Dose: 5 mls/hr Oxytocin/Sodium Chloride (Oxytocin 30 Unit/500 Ml-Ns) 30 unit in 500 mls @ 2 mls/hr IV TITRATE MARIALUISA; 2 MUNITS/MIN PRN Reason: Protocol Last Infusion: 09/21/17 18:12 Dose: 40 munits/min, 40 mls/hr Lactated Ringer's (Ringers, Lactated) 1,000 mls @ 125 mls/hr IV ASDIRECTED MARIALUISA Ibuprofen (Motrin) 800 mg PO Q8H PRN PRN Reason: mild pain or fever Last Admin: 09/23/17 06:01 Dose: 800 mg Labetalol HCl (Normodyne) 20 mg IVPUSH Q10M PRN; Protocol PRN Reason: Hypertension Last Admin: 09/22/17 20:33 Dose: 20 mg Labetalol HCl (Normodyne) 200 mg PO BID MARIALUISA Last Admin: 09/23/17 07:19 Dose: 200 mg Methylergonovine Maleate (Methergine) 0.2 mg IM ASDIRECTED PRN PRN Reason: Post Hemorrhage Misoprostol (Cytotec) 200 mcg PO .ONCE PRN PRN Reason: Post Hemorrhage Ondansetron HCl (Zofran) 4 mg IVPUSH Q4H PRN PRN Reason: Nausea/Vomiting Last Admin: 09/22/17 17:13 Dose: 4 mg Oxycodone/Acetaminophen (Percocet 325-5 Mg) 1 tab PO Q4H PRN PRN Reason: Pain (moderate 4-6) Last Admin: 09/23/17 06:01 Dose: 1 tab Oxycodone/Acetaminophen (Percocet 325-5 Mg) 2 tab PO Q4H PRN PRN Reason: Pain (moderate 4-6) Simethicone (Simethicone) 160 mg PO QID MARIALUISA Last Admin: 09/23/17 06:00 Dose: 160 mg Sodium Chloride (Saline Flush) 10 ml FLUSH ASDIRECTED PRN PRN Reason: Keep Vein Open Sodium Chloride (Saline Flush) 2.5 ml FLUSH ASDIRECTED PRN PRN Reason: Keep Vein Open Witch Fiordaliza (Tucks) 1 pad TOP ASDIRECTED PRN PRN Reason: Perineal Comfort Measure Discontinued Medications Acetaminophen (Tylenol Extra Strength) 1,000 mg PO ONETIME ONE Stop: 09/20/17 11:13 Last Admin: 09/20/17 11:19 Dose: 1,000 mg Acetaminophen/Butalbital/Caffeine (Fioricet 325-50-40 Mg) 1 tab PO ONETIME ONE Stop: 09/20/17 14:00 Last Admin: 09/20/17 14:17 Dose: 1 tab Acetaminophen/Butalbital/Caffeine (Fioricet 325-50-40 Mg) Confirm Administered Dose 1 tab .ROUTE .STK-MED ONE Stop: 09/20/17 14:12 Last Admin: 09/23/17 01:51 Dose: Not Given Bupivacaine HCl (Sensorcaine-Mpf 0.5%) Confirm Administered Dose 10 ml .ROUTE .STK-MED ONE Stop: 09/21/17 04:47 Last Admin: 09/23/17 01:51 Dose: Not Given Bupivacaine HCl (Sensorcaine-Mpf 0.5%) Confirm Administered Dose 10 ml .ROUTE .STK-MED ONE Stop: 09/21/17 06:23 Last Admin: 09/23/17 01:51 Dose: Not Given Bupivacaine HCl (Sensorcaine-Mpf 0.5%) Confirm Administered Dose 20 ml .ROUTE .STK-MED ONE Stop: 09/21/17 20:32 Last Admin: 09/23/17 01:52 Dose: Not Given Butorphanol Tartrate (Stadol) 1 mg IVPUSH Q1H PRN PRN Reason: Pain Last Admin: 09/20/17 17:35 Dose: 1 mg Carboprost Tromethamine (Hemabate Ds) Confirm Administered Dose 250 mcg .ROUTE .STK-MED ONE Stop: 09/21/17 21:15 Last Admin: 09/23/17 01:52 Dose: Not Given Cefazolin Sodium (Ancef) Confirm Administered Dose 3 gm .ROUTE .STK-MED ONE Stop: 09/21/17 20:56 Dexamethasone (Dexamethasone) Confirm Administered Dose 20 mg .ROUTE .STK-MED ONE Stop: 09/21/17 20:11 Diphenhydramine HCl (Benadryl) 25 mg IVPUSH Q4H PRN PRN Reason: Itching Stop: 09/22/17 22:17 Ephedrine Sulfate (Ephedrine Sulfate) Confirm Administered Dose 50 mg .ROUTE .STK-MED ONE Stop: 09/21/17 20:11 Fentanyl (Sublimaze) Confirm Administered Dose 300 mcg .ROUTE .STK-MED ONE Stop: 09/20/17 19:57 Last Admin: 09/23/17 01:51 Dose: Not Given Fentanyl (Sublimaze) Confirm Administered Dose 100 mcg .ROUTE .ST-MED ONE Stop: 09/21/17 04:43 Last Admin: 09/23/17 01:51 Dose: Not Given Fentanyl (Sublimaze) Confirm Administered Dose 100 mcg .ROUTE .STK-MED ONE Stop: 09/21/17 13:37 Last Admin: 09/23/17 01:52 Dose: Not Given Fentanyl (Sublimaze) Confirm Administered Dose 100 mcg .ROUTE .STK-MED ONE Stop: 09/21/17 20:32 Last Admin: 09/23/17 01:52 Dose: Not Given Furosemide (Lasix) 20 mg IVPUSH ONETIME ONE Stop: 09/22/17 22:26 Last Admin: 09/22/17 23:18 Dose: 20 mg Hydroxyzine Pamoate (Vistaril) 50 mg PO ONETIME ONE Stop: 09/19/17 22:18 Last Admin: 09/19/17 23:28 Dose: 50 mg Magnesium Sulfate (Magnesium Sulfate 4 Gm In Water 100 Ml) Confirm Administered Dose 100 mls @ as directed .ROUTE .[facility]-MED ONE Stop: 09/19/17 17:49 Last Admin: 09/19/17 18:04 Dose: 4 gm Ampicillin Sodium 2 gm/ Sodium (Chloride) 100 mls @ 200 mls/hr IV ONETIME ONE Stop: 09/19/17 18:29 Last Admin: 09/19/17 18:28 Dose: 200 mls/hr Ampicillin Sodium 1 gm/ Sodium (Chloride) 50 mls @ 100 mls/hr IV Q4H MARIALUISA Last Admin: 09/21/17 17:59 Dose: 100 mls/hr Magnesium Sulfate 4 gm/ Premix 100 mls @ 300 mls/hr IV .BOLUS ONE Stop: 09/19/17 17:53 Magnesium Sulfate (Magnesium Sulfate 40 Gm In Water 1000 Ml) 40 gm in 1,000 mls @ 50 mls/hr IV ASDIRECTED MARIALUISA PRN Reason: 2 GM/HR Last Admin: 09/21/17 13:54 Dose: 1 gm/hr, 25 mls/hr Oxytocin/Sodium Chloride (Oxytocin 30 Unit/500 Ml-Ns) 30 unit in 500 mls @ 2 mls/hr IV TITRATE MARIALUISA; 2 MUNITS/MIN PRN Reason: Protocol Last Titration: 09/21/17 13:15 Dose: 38 munits/min, 38 mls/hr Ropivacaine (Naropin 0.2%) Confirm Administered Dose 100 mls @ as directed .ROUTE .[facility]-MED ONE Stop: 09/20/17 19:56 Last Admin: 09/23/17 01:51 Dose: Not Given Ropivacaine (Naropin 0.2%) Confirm Administered Dose 100 mls @ as directed .ROUTE .[facility]-MED ONE Stop: 09/21/17 08:05 Last Admin: 09/23/17 01:52 Dose: Not Given Ropivacaine (Naropin 0.2%) Confirm Administered Dose 100 mls @ as directed .ROUTE .[facility] ONE Stop: 09/21/17 13:37 Last Admin: 09/23/17 01:52 Dose: Not Given Sodium Chloride (Normal Saline) Confirm Administered Dose 20 mls @ as directed .ROUTE .STK-MED ONE Stop: 09/21/17 20:12 Sodium Chloride (Normal Saline) Confirm Administered Dose 20 mls @ as directed .ROUTE .[facility]-MED ONE Stop: 09/21/17 20:56 Ketorolac Tromethamine (Toradol) Confirm Administered Dose 30 mg .ROUTE .ST- MED ONE Stop: 09/21/17 20:11 Labetalol HCl (Normodyne) 20 mg IVPUSH ASDIRECTED ONE PRN Reason: Protocol Stop: 09/19/17 17:54 Last Admin: 09/19/17 20:44 Dose: 20 mg Labetalol HCl (Normodyne) Confirm Administered Dose 100 mg .ROUTE .ST-MED ONE Stop: 09/19/17 20:34 Lidocaine (Xylocaine-Mpf 2%) Confirm Administered Dose 5 ml .ROUTE .ST-MED ONE Stop: 09/21/17 19:26 Last Admin: 09/23/17 01:52 Dose: Not Given Lidocaine HCl (Xylocaine 1%) 50 ml INJECT .ONCE PRN PRN Reason: Laceration repair Methylergonovine Maleate (Methergine) Confirm Administered Dose 0.2 mg .ROUTE .ST-MED ONE Stop: 09/21/17 21:15 Last Admin: 09/23/17 01:52 Dose: Not Given Misoprostol (Cytotec) 25 mcg VAG Q4H PRN PRN Reason: Cervical Ripening Last Admin: 09/20/17 07:44 Dose: 25 mcg Misoprostol (Cytotec) 25 mcg PO ONETIME ONE Stop: 09/20/17 07:54 Last Admin: 09/20/17 08:00 Dose: 25 mcg Misoprostol (Cytotec) Confirm Administered Dose 25 mcg .ROUTE .ST-MED ONE Stop: 09/20/17 07:57 Last Admin: 09/23/17 01:50 Dose: Not Given Misoprostol (Cytotec) 25 mcg PO ONETIME ONE Stop: 09/20/17 13:39 Last Admin: 09/20/17 14:21 Dose: 25 mcg Morphine Sulfate (Duramorph Pf) Confirm Administered Dose 1 mg .ROUTE .ST-MED ONE Stop: 09/21/17 20:36 Nalbuphine HCl (Nubain) 10 mg IVPUSH Q1H PRN PRN Reason: Pain (severe 7-10) Nalbuphine HCl (Nubain) Confirm Administered Dose 10 mg .ROUTE .STK-MED ONE Stop: 09/21/17 20:11 Nalbuphine HCl (Nubain) Confirm Administered Dose 10 mg .ROUTE .STK-MED ONE Stop: 09/21/17 21:26 Nalbuphine HCl (Nubain) 5 mg IVPUSH Q3H PRN PRN Reason: Pruritis Stop: 09/22/17 22:17 Naloxone HCl (Narcan) 0.1 mg IVPUSH ONETIME PRN PRN Reason: Respiratory Depression Stop: 09/22/17 22:17 Octyl Cyanoacrylate (Dermabond Advance) Confirm Administered Dose 1 applic .ROUTE .ST-MED ONE Stop: 09/21/17 21:50 Ondansetron HCl (Zofran) Confirm Administered Dose 4 mg .ROUTE .ST-MED ONE Stop: 09/20/17 22:18 Last Admin: 09/23/17 01:51 Dose: Not Given Ondansetron HCl (Zofran) 4 mg IVPUSH ONETIME ONE Stop: 09/20/17 22:23 Last Admin: 09/20/17 22:43 Dose: 4 mg Ondansetron HCl (Zofran) Confirm Administered Dose 4 mg .ROUTE .ST-MED ONE Stop: 09/21/17 20:11 Oxytocin (Pitocin) Confirm Administered Dose 30 unit .ROUTE .STK-MED ONE Stop: 09/21/17 20:11 Phenylephrine HCl (James-Synephrine) Confirm Administered Dose 10 mg .ROUTE .ST- MED ONE Stop: 09/20/17 21:48 Last Admin: 09/23/17 01:51 Dose: Not Given Promethazine HCl (Phenergan) 12.5 mg IM ONETIME ONE Stop: 09/22/17 20:04 Last Admin: 09/22/17 21:24 Dose: 12.5 mg Propofol (Diprivan 20 Ml) Confirm Administered Dose 200 mg .ROUTE .STK-MED ONE Stop: 09/21/17 21:52 Ropivacaine (Naropin 0.2%) Confirm Administered Dose 20 ml .ROUTE .STK-MED ONE Stop: 09/20/17 19:57 Last Admin: 09/23/17 01:51 Dose: Not Given Ropivacaine (Naropin 0.2%) Confirm Administered Dose 20 ml .ROUTE .STK-MED ONE Stop: 09/21/17 02:51 Last Admin: 09/23/17 01:51 Dose: Not Given Simethicone (Simethicone) Confirm Administered Dose 80 mg .ROUTE .STK-MED ONE Stop: 09/22/17 06:35 Last Admin: 09/23/17 01:49 Dose: Not Given Sterile Water (Sterile Water For Irrigation) 1,000 ml IRR ASDIRECTED PRN PRN Reason: delivery Terbutaline Sulfate (Brethine) 0.25 mg SUBCUT ASDIRECTED PRN PRN Reason: Tacysystole - Interaction Support Person: - Recovery Exam Fundal Tone: Firm Fundal Level: At Umbilicus Fundal Placement: Midline Lochia Amount: Scant Lochia Color: Rubra/Red Perineum Description: Edematous Episiotomy/Laceration: Approximated Bladder Status: Voiding Urinary Elimination: Not Voiding - Exam General: Alert, Oriented Lungs: Normal Respiratory Effort Cardiovascular: Regular Rate, Regular Rhythm GI/Abdominal Exam: Normal Bowel Sounds, Soft. No: Guarding, Rigid Extremities: Pedal Edema (2+). No: Harish's Sign Skin: Warm, Cool Wound/Incisions: Healing Well, No Drainage. No: Erythema Psy/Mental Status: Alert - Problem List & Annotations (1) Preeclampsia SNOMED Code(s): 660397726 Code(s): O14.90 - UNSPECIFIED PRE-ECLAMPSIA, UNSPECIFIED TRIMESTER Status: Acute Current Visit: Yes (2) delivery delivered SNOMED Code(s): 228827400 Code(s): O82 - ENCOUNTER FOR DELIVERY WITHOUT INDICATION Status: Acute Current Visit: Yes - Problem List Review Problem List Initiated/Reviewed/Updated: Yes - My Orders Last 24 Hours: My Active Orders 09/22/17 08:30 Deep Tendon Reflexes [WOMSER] Q1H 09/22/17 09:00 Docusate Sodium [Colace] 100 mg PO BID 09/22/17 09:30 Deep Tendon Reflexes [WOMSER] Q1H 09/22/17 10:30 Deep Tendon Reflexes [WOMSER] Q1H 09/22/17 11:30 Deep Tendon Reflexes [WOMSER] Q1H 09/22/17 12:30 Deep Tendon Reflexes [WOMSER] Q1 09/22/17 13:30 Deep Tendon Reflexes [WOMSER] Q1 09/22/17 14:30 Deep Tendon Reflexes [WOMSER] Q1 09/22/17 15:30 Deep Tendon Reflexes [WOMSER] Q1 09/22/17 16:30 Deep Tendon Reflexes [WOMSER] [facility] 09/22/17 17:30 Deep Tendon Reflexes [WOMSER] Q1 09/22/17 18:08 Labetalol [Normodyne] 20 mg IVPUSH Q10M PRN 09/22/17 18:30 Deep Tendon Reflexes [WOMSER] 09/22/17 19:30 Deep Tendon Reflexes [WOMSER] [facility] 09/22/17 20:30 Deep Tendon Reflexes [WOMSER] [facility] 09/22/17 21:30 Deep Tendon Reflexes [WOMSER] [facility] 09/22/17 Lunch Regular Diet [DIET] 09/23/17 07:00 Labetalol [Normodyne] 200 mg PO BID - Assessment Assessment:: POD 2 status post Primary LTCS Preeclampsia - Plan Plan:: Will continue to monitor closely today with oral labetalol. Magnesium discontinued this morning. Monitor for continued diueresis. May become ambulatory today and will monitor closely. May shower later. Will consider repeating lasix this afternoon unless continues to diurese well spontaneously. Continues to breastfeed. If has a stable day today, will look at discharge tomorrow.
[2017-09-23] MEDS ORDERED: Furosemide 20 MG/2 ML VIAL IVPUSH ONE (15:30)
[2017-09-24] MEDS: Simethicone 80 MG Tab.Chew PO SCH ×3 (02:05→14:20)
[2017-09-24] MEDS: Acetaminophen/oxyCODONE 325-5 MG Tab PO PRN (02:05)
[2017-09-24] MEDS ORDERED: Simethicone 80 MG Tab.Chew ONE ×2 (07:32→07:36)
[2017-09-24] MEDS: Ibuprofen 800 MG Tab PO PRN (07:33)
[2017-09-24 09:59] VITALS: BP 137/65
[2017-09-24] MEDS: Labetalol 100 MG Tab PO SCH (10:00)
[2017-09-24] MEDS: Docusate Sodium 100 MG Cap PO SCH (10:03)
[2017-09-24] MEDS ORDERED: buPROPion 150 MG Tab.ER PO ONE (10:22)
[2017-09-24] MEDS ORDERED: Sertraline 100 MG Tab PO SCH (10:30)
--- NOTE | 2017-09-24 10:31 | PCM.PNPP ---
- General Info Date of Service: 09/24/17 Functional Status: Reports: Pain Controlled, Tolerating Diet, Ambulating, Urinating - Review of Systems General: Denies: Fever, Chills HEENT: Denies: Headaches Pulmonary: Denies: Shortness of Breath, Pleuritic Chest Pain Cardiovascular: Denies: Chest Pain, Palpitations, Dyspnea on Exertion Gastrointestinal: Reports: Abdominal Pain Genitourinary: Denies: Dysuria, Incontinence, Flank Pain Musculoskeletal: Reports: No Symptoms Neurological: Reports: Headache Psychiatric: Reports: Depression, Mood Lability. Denies: Suicidal Ideation - General Info Date of Service: 09/24/17 - Patient Data Vital Signs - Most Recent: Last Vital Signs Temp 36.8 C 09/24/17 09:57 Pulse 97 09/24/17 10:00 Resp 16 09/24/17 09:57 BP 137/65 09/24/17 10:00 Pulse Ox 97 09/24/17 09:57 Weight - Most Recent: 267 lb 13.786 oz I&O - Last 24 Hours: Intake & Output 09/23/17 09/24/17 09/24/17 22:59 06:59 14:59 Intake Total 1400 Output Total 2800 Balance -1400 Micro Results - Last 24 Hours: Microbiology 09/19/17 15:50 Group B Streptococcus Culture - Final Vaginal/Rectal NEGATIVE STREP GROUP B Med Orders - Current: Current Medications Al Hydroxide/Mg Hydroxide (Mag-Al Plus) 30 ml PO Q8H PRN PRN Reason: Heartburn Benzocaine/Menthol (Cepacol Sore Throat) 1 lozenge MUCMEM ASDIRECTED PRN PRN Reason: Cough Last Admin: 09/21/17 08:25 Dose: 1 lozenge Bisacodyl (Dulcolax) 10 mg RECTAL .ONCE PRN PRN Reason: Constipation Bupropion HCl (Wellbutrin Xl) 300 mg PO ONETIME ONE Stop: 09/24/17 10:23 Calcium Gluconate (Calcium Gluconate) 1 gm IV ASDIRECTED PRN PRN Reason: respiratory distress Carboprost Tromethamine (Hemabate Ds) 250 mcg IM ASDIRECTED PRN PRN Reason: Post Hemorrhage Diphenhydramine HCl (Benadryl) 25 mg IVPUSH Q6H PRN PRN Reason: Itching or Nausea Docusate Sodium (Colace) 100 mg PO BID [facility] Last Admin: 09/24/17 10:03 Dose: 100 mg Emollient Ointment (Lansinoh Hpa) 0 gm TOP ASDIRECTED PRN PRN Reason: Sore Nipples Hydrocortisone (Hydrocortisone 2.5% Crm) 0 gm TOP Q4H PRN PRN Reason: Hemorrhoids Oxytocin/Sodium Chloride (Oxytocin 30 Unit/500 Ml-Ns) 30 unit in 500 mls @ 999 mls/hr IV TITRATE MARIALUISA Sodium Chloride (Normal Saline) 1,000 mls @ 125 mls/hr IV ASDIRECTED MARIALUISA Last Infusion: 09/22/17 19:42 Dose: 5 mls/hr Oxytocin/Sodium Chloride (Oxytocin 30 Unit/500 Ml-Ns) 30 unit in 500 mls @ 2 mls/hr IV TITRATE MARIALUISA; 2 MUNITS/MIN PRN Reason: Protocol Last Infusion: 09/21/17 18:12 Dose: 40 munits/min, 40 mls/hr Lactated Ringer's (Ringers, Lactated) 1,000 mls @ 125 mls/hr IV ASDIRECTED [facility] Ibuprofen (Motrin) 800 mg PO Q8H PRN PRN Reason: mild pain or fever Last Admin: 09/24/17 07:33 Dose: 800 mg Labetalol HCl (Normodyne) 20 mg IVPUSH Q10M PRN; Protocol PRN Reason: Hypertension Last Admin: 09/22/17 20:33 Dose: 20 mg Labetalol HCl (Normodyne) 200 mg PO BID [facility] Last Admin: 09/24/17 10:00 Dose: 200 mg Methylergonovine Maleate (Methergine) 0.2 mg IM ASDIRECTED PRN PRN Reason: Post Hemorrhage Misoprostol (Cytotec) 200 mcg PO .ONCE PRN PRN Reason: Post Hemorrhage Ondansetron HCl (Zofran) 4 mg IVPUSH Q4H PRN PRN Reason: Nausea/Vomiting Last Admin: 09/22/17 17:13 Dose: 4 mg Oxycodone/Acetaminophen (Percocet 325-5 Mg) 1 tab PO Q4H PRN PRN Reason: Pain (moderate 4-6) Last Admin: 09/24/17 02:05 Dose: 1 tab Oxycodone/Acetaminophen (Percocet 325-5 Mg) 2 tab PO Q4H PRN PRN Reason: Pain (moderate 4-6) Sertraline HCl (Zoloft) 200 mg PO DAILY MARIALUISA Simethicone (Simethicone) 160 mg PO QID MARIALUISA Last Admin: 09/24/17 07:58 Dose: 160 mg Sodium Chloride (Saline Flush) 10 ml FLUSH ASDIRECTED PRN PRN Reason: Keep Vein Open Sodium Chloride (Saline Flush) 2.5 ml FLUSH ASDIRECTED PRN PRN Reason: Keep Vein Open Witch Fiordaliza (Tucks) 1 pad TOP ASDIRECTED PRN PRN Reason: Perineal Comfort Measure Discontinued Medications Acetaminophen (Tylenol Extra Strength) 1,000 mg PO ONETIME ONE Stop: 09/20/17 11:13 Last Admin: 09/20/17 11:19 Dose: 1,000 mg Acetaminophen/Butalbital/Caffeine (Fioricet 325-50-40 Mg) 1 tab PO ONETIME ONE Stop: 09/20/17 14:00 Last Admin: 09/20/17 14:17 Dose: 1 tab Acetaminophen/Butalbital/Caffeine (Fioricet 325-50-40 Mg) Confirm Administered Dose 1 tab .ROUTE .STK-MED ONE Stop: 09/20/17 14:12 Last Admin: 09/23/17 01:51 Dose: Not Given Bupivacaine HCl (Sensorcaine-Mpf 0.5%) Confirm Administered Dose 10 ml .ROUTE .STK-MED ONE Stop: 09/21/17 04:47 Last Admin: 09/23/17 01:51 Dose: Not Given Bupivacaine HCl (Sensorcaine-Mpf 0.5%) Confirm Administered Dose 10 ml .ROUTE .STK-MED ONE Stop: 09/21/17 06:23 Last Admin: 09/23/17 01:51 Dose: Not Given Bupivacaine HCl (Sensorcaine-Mpf 0.5%) Confirm Administered Dose 20 ml .ROUTE .STK-MED ONE Stop: 09/21/17 20:32 Last Admin: 09/23/17 01:52 Dose: Not Given Butorphanol Tartrate (Stadol) 1 mg IVPUSH Q1H PRN PRN Reason: Pain Last Admin: 09/20/17 17:35 Dose: 1 mg Carboprost Tromethamine (Hemabate Ds) Confirm Administered Dose 250 mcg .ROUTE .STK-MED ONE Stop: 09/21/17 21:15 Last Admin: 09/23/17 01:52 Dose: Not Given Cefazolin Sodium (Ancef) Confirm Administered Dose 3 gm .ROUTE .ST-MED ONE Stop: 09/21/17 20:56 Dexamethasone (Dexamethasone) Confirm Administered Dose 20 mg .ROUTE .[facility] ONE Stop: 09/21/17 20:11 Diphenhydramine HCl (Benadryl) 25 mg IVPUSH Q4H PRN PRN Reason: Itching Stop: 09/22/17 22:17 Ephedrine Sulfate (Ephedrine Sulfate) Confirm Administered Dose 50 mg .ROUTE .[facility] ONE Stop: 09/21/17 20:11 Fentanyl (Sublimaze) Confirm Administered Dose 300 mcg .ROUTE .[facility] ONE Stop: 09/20/17 19:57 Last Admin: 09/23/17 01:51 Dose: Not Given Fentanyl (Sublimaze) Confirm Administered Dose 100 mcg .ROUTE .[facility] ONE Stop: 09/21/17 04:43 Last Admin: 09/23/17 01:51 Dose: Not Given Fentanyl (Sublimaze) Confirm Administered Dose 100 mcg .ROUTE .[facility] ONE Stop: 09/21/17 13:37 Last Admin: 09/23/17 01:52 Dose: Not Given Fentanyl (Sublimaze) Confirm Administered Dose 100 mcg .ROUTE .[facility] ONE Stop: 09/21/17 20:32 Last Admin: 09/23/17 01:52 Dose: Not Given Furosemide (Lasix) 20 mg IVPUSH ONETIME ONE Stop: 09/22/17 22:26 Last Admin: 09/22/17 23:18 Dose: 20 mg Furosemide (Lasix) 20 mg IVPUSH ONETIME ONE Stop: 09/23/17 15:31 Last Admin: 09/23/17 15:36 Dose: 20 mg Hydroxyzine Pamoate (Vistaril) 50 mg PO ONETIME ONE Stop: 09/19/17 22:18 Last Admin: 09/19/17 23:28 Dose: 50 mg Magnesium Sulfate (Magnesium Sulfate 4 Gm In Water 100 Ml) Confirm Administered Dose 100 mls @ as directed .ROUTE .[facility] ONE Stop: 09/19/17 17:49 Last Admin: 09/19/17 18:04 Dose: 4 gm Ampicillin Sodium 2 gm/ Sodium (Chloride) 100 mls @ 200 mls/hr IV ONETIME ONE Stop: 09/19/17 18:29 Last Admin: 09/19/17 18:28 Dose: 200 mls/hr Ampicillin Sodium 1 gm/ Sodium (Chloride) 50 mls @ 100 mls/hr IV Q4H MARIALUISA Last Admin: 09/21/17 17:59 Dose: 100 mls/hr Magnesium Sulfate 4 gm/ Premix 100 mls @ 300 mls/hr IV .BOLUS ONE Stop: 09/19/17 17:53 Magnesium Sulfate (Magnesium Sulfate 40 Gm In Water 1000 Ml) 40 gm in 1,000 mls @ 50 mls/hr IV ASDIRECTED MARIALUISA PRN Reason: 2 GM/HR Last Admin: 09/21/17 13:54 Dose: 1 gm/hr, 25 mls/hr Oxytocin/Sodium Chloride (Oxytocin 30 Unit/500 Ml-Ns) 30 unit in 500 mls @ 2 mls/hr IV TITRATE MARIALUISA; 2 MUNITS/MIN PRN Reason: Protocol Last Titration: 09/21/17 13:15 Dose: 38 munits/min, 38 mls/hr Ropivacaine (Naropin 0.2%) Confirm Administered Dose 100 mls @ as directed .ROUTE .STK-MED ONE Stop: 09/20/17 19:56 Last Admin: 09/23/17 01:51 Dose: Not Given Ropivacaine (Naropin 0.2%) Confirm Administered Dose 100 mls @ as directed .ROUTE .STK-MED ONE Stop: 09/21/17 08:05 Last Admin: 09/23/17 01:52 Dose: Not Given Ropivacaine (Naropin 0.2%) Confirm Administered Dose 100 mls @ as directed .ROUTE .STK-MED ONE Stop: 09/21/17 13:37 Last Admin: 09/23/17 01:52 Dose: Not Given Sodium Chloride (Normal Saline) Confirm Administered Dose 20 mls @ as directed .ROUTE .STK-MED ONE Stop: 09/21/17 20:12 Sodium Chloride (Normal Saline) Confirm Administered Dose 20 mls @ as directed .ROUTE .STK-MED ONE Stop: 09/21/17 20:56 Ketorolac Tromethamine (Toradol) Confirm Administered Dose 30 mg .ROUTE .STK- MED ONE Stop: 09/21/17 20:11 Labetalol HCl (Normodyne) 20 mg IVPUSH ASDIRECTED ONE PRN Reason: Protocol Stop: 09/19/17 17:54 Last Admin: 09/19/17 20:44 Dose: 20 mg Labetalol HCl (Normodyne) Confirm Administered Dose 100 mg .ROUTE .STK-MED ONE Stop: 09/19/17 20:34 Lidocaine (Xylocaine-Mpf 2%) Confirm Administered Dose 5 ml .ROUTE .STK-MED ONE Stop: 09/21/17 19:26 Last Admin: 09/23/17 01:52 Dose: Not Given Lidocaine HCl (Xylocaine 1%) 50 ml INJECT .ONCE PRN PRN Reason: Laceration repair Methylergonovine Maleate (Methergine) Confirm Administered Dose 0.2 mg .ROUTE .STK-MED ONE Stop: 09/21/17 21:15 Last Admin: 09/23/17 01:52 Dose: Not Given Misoprostol (Cytotec) 25 mcg VAG Q4H PRN PRN Reason: Cervical Ripening Last Admin: 09/20/17 07:44 Dose: 25 mcg Misoprostol (Cytotec) 25 mcg PO ONETIME ONE Stop: 09/20/17 07:54 Last Admin: 09/20/17 08:00 Dose: 25 mcg Misoprostol (Cytotec) Confirm Administered Dose 25 mcg .ROUTE .STK-MED ONE Stop: 09/20/17 07:57 Last Admin: 09/23/17 01:50 Dose: Not Given Misoprostol (Cytotec) 25 mcg PO ONETIME ONE Stop: 09/20/17 13:39 Last Admin: 09/20/17 14:21 Dose: 25 mcg Morphine Sulfate (Duramorph Pf) Confirm Administered Dose 1 mg .ROUTE .STK-MED ONE Stop: 09/21/17 20:36 Nalbuphine HCl (Nubain) 10 mg IVPUSH Q1H PRN PRN Reason: Pain (severe 7-10) Nalbuphine HCl (Nubain) Confirm Administered Dose 10 mg .ROUTE .STK-MED ONE Stop: 09/21/17 20:11 Nalbuphine HCl (Nubain) Confirm Administered Dose 10 mg .ROUTE .STK-MED ONE Stop: 09/21/17 21:26 Nalbuphine HCl (Nubain) 5 mg IVPUSH Q3H PRN PRN Reason: Pruritis Stop: 09/22/17 22:17 Naloxone HCl (Narcan) 0.1 mg IVPUSH ONETIME PRN PRN Reason: Respiratory Depression Stop: 09/22/17 22:17 Octyl Cyanoacrylate (Dermabond Advance) Confirm Administered Dose 1 applic .ROUTE .STK-MED ONE Stop: 09/21/17 21:50 Ondansetron HCl (Zofran) Confirm Administered Dose 4 mg .ROUTE .STK-MED ONE Stop: 09/20/17 22:18 Last Admin: 09/23/17 01:51 Dose: Not Given Ondansetron HCl (Zofran) 4 mg IVPUSH ONETIME ONE Stop: 09/20/17 22:23 Last Admin: 09/20/17 22:43 Dose: 4 mg Ondansetron HCl (Zofran) Confirm Administered Dose 4 mg .ROUTE .ST-MED ONE Stop: 09/21/17 20:11 Oxytocin (Pitocin) Confirm Administered Dose 30 unit .ROUTE .STK-MED ONE Stop: 09/21/17 20:11 Phenylephrine HCl (James-Synephrine) Confirm Administered Dose 10 mg .ROUTE .ST- MED ONE Stop: 09/20/17 21:48 Last Admin: 09/23/17 01:51 Dose: Not Given Promethazine HCl (Phenergan) 12.5 mg IM ONETIME ONE Stop: 09/22/17 20:04 Last Admin: 09/22/17 21:24 Dose: 12.5 mg Propofol (Diprivan 20 Ml) Confirm Administered Dose 200 mg .ROUTE .STK-MED ONE Stop: 09/21/17 21:52 Ropivacaine (Naropin 0.2%) Confirm Administered Dose 20 ml .ROUTE .STK-MED ONE Stop: 09/20/17 19:57 Last Admin: 09/23/17 01:51 Dose: Not Given Ropivacaine (Naropin 0.2%) Confirm Administered Dose 20 ml .ROUTE .STK-MED ONE Stop: 09/21/17 02:51 Last Admin: 09/23/17 01:51 Dose: Not Given Simethicone (Simethicone) Confirm Administered Dose 80 mg .ROUTE .STK-MED ONE Stop: 09/22/17 06:35 Last Admin: 09/23/17 01:49 Dose: Not Given Simethicone (Simethicone) Confirm Administered Dose 80 mg .ROUTE .STK-MED ONE Stop: 09/24/17 07:33 Simethicone (Simethicone) Confirm Administered Dose 80 mg .ROUTE .STK-MED ONE Stop: 09/24/17 07:37 Sterile Water (Sterile Water For Irrigation) 1,000 ml IRR ASDIRECTED PRN PRN Reason: delivery Terbutaline Sulfate (Brethine) 0.25 mg SUBCUT ASDIRECTED PRN PRN Reason: Tacysystole - Interaction Disposition, : [place] to Nursery Feeding: Attempted ; Nursed Fair/Poor (Supplementing with formulae) Support Person: - Recovery Exam Fundal Tone: Firm Fundal Level: At Umbilicus Fundal Placement: Midline Lochia Amount: Scant Lochia Color: Rubra/Red Perineum Description: Edematous Episiotomy/Laceration: Approximated Bladder Status: Voiding Urinary Elimination: Voided - Exam General: Alert, Oriented HEENT: Pupils Equal Neck: Supple Lungs: Clear to Auscultation, Normal Respiratory Effort Cardiovascular: Regular Rate, Regular Rhythm GI/Abdominal Exam: Normal Bowel Sounds Extremities: Non-Tender, Pedal Edema Skin: Warm Wound/Incisions: Healing Well Neurological: No New Focal Deficit Psy/Mental Status: Alert, Normal Affect, Normal Mood - Problem List & Annotations (1) delivery delivered SNOMED Code(s): 784820645 Code(s): O82 - ENCOUNTER FOR DELIVERY WITHOUT INDICATION Status: Acute Current Visit: Yes (2) Preeclampsia SNOMED Code(s): 432124253 Code(s): O14.90 - UNSPECIFIED PRE-ECLAMPSIA, UNSPECIFIED TRIMESTER Status: Acute Current Visit: Yes Qualifiers: Trimester: third trimester Qualified Code(s): O14.93 - Unspecified pre- eclampsia, third trimester - Problem List Review Problem List Initiated/Reviewed/Updated: Yes - My Orders Last 24 Hours: My Active Orders 09/24/17 10:22 buPROPion [Wellbutrin XL] 300 mg PO ONETIME ONE 09/24/17 10:30 Sertraline [Zoloft] 200 mg PO DAILY - Assessment Assessment:: POD 3 status post Primary LTCS Preeclampsia- stable and asymptomatic BP controlled on labetalol 200mg BID Baby is currently under the bili lights but patient would like to go home and would come in to see baby and breast fed Her mood is currently labile- she has been off her antidepressants - Plan Plan:: Will discharge home today Preeclampsia precautions reviewed with patient She would discharged on Labetalol 200mg BID and 3 days of furosemide to aid further diuresis Restart antidepressants -give a dose of Wellbutrin and Zoloft now Nothing in the vagina for 6 weeks Bleeding. infection precautions and incision check reviewed Follow on Sunday for BP check and 2 weeks for incision check
--- NOTE | 2017-09-26 09:41 | OR ---
SURGEON: Leanna Orr M.D. DATE OF PROCEDURE: 09/21/2017 PREOPERATIVE DIAGNOSES: 1. Thirty-nine week intrauterine . 2. Preeclampsia. 3. Arrest of descent. POSTOPERATIVE DIAGNOSES: 1. Thirty-nine week intrauterine . 2. Preeclampsia. 3. Arrest of descent. PROCEDURE PERFORMED: Primary low transverse section. PRIMARY SURGEON: Leanna Orr MD. ANESTHESIA: Epidural. ESTIMATED BLOOD LOSS: 600 mL. FLUIDS: 1000 mL of crystalloid. COMPLICATIONS: None known. FINDINGS: Viable female with scores of 6 at one minute and 8 at five minutes. Weight of 3110 g. Delivery of intact placenta, three-vessel cord. Normal- appearing pelvis. DISPOSITION: Infant to [facility]. Mom to PACU, on magnesium recovery. PROCEDURE IN DETAIL: Trang is a 32-year-old female, who presented to the clinic with symptomatology to suggest preeclampsia. She was hypertensive with proteinuria. Therefore, was admitted at term gestation for initiation of induction and magnesium prophylaxis. She has been managed for the past few days by her attending physician, Dr. Marcial. The induction had progressed slowly, but has progressed. She began pushing efforts on the late afternoon of 09/21/2017, pushed for approximately 3-1/2 hours, but was not able to push past a +1 station. At that time, the patient was increasingly fatigued. Dr. Marcial then turned over care to me. The patient feels that she no longer wants to push and would like to proceed with delivery. Therefore, Pitocin was discontinued, and patient was allowed to rest while awaiting for the OR crew and Anesthesia crew to become available as they were in an another procedure. heart tones remained at 140s, with minimal variabilities consistent with magnesium prophylaxis changes upon evaluation, after being allowed to rest over the next hour, the station is now +2. After discussion with the patient, I told her it was possible that she could continue pushing efforts to attempt an operative vaginal delivery vacuum. However, she feels she just simply cannot do it at this time, and is requesting . Therefore, risks of the procedure discussed including infection, bleeding, possible trauma to surrounding bowel/bladder/ureter, in case of excessive blood loss, need for blood product transfusion, rare lifesaving circumstances, need for hysterectomy, risk for thromboembolic event, and risk of anesthesia. The patient voiced her understanding and does agree to . Anesthesia had been notified and was bolusing her epidural. The Nursing section supervisor was notified. The patient was taken to the operating room, where she was placed in dorsal supine position with a leftward tilt. SCDs to lower extremities and Mcconnell to gravity. She was prepped and draped in the usual sterile fashion. She had received Ancef 3 g prophylactically. Time-out was performed. Anesthesia was tested and found to be adequate. A low-transverse midline transverse incision was now created above the pannus, and carried down to level of the rectus fascia, which was incised laterally, sharply, and bluntly. Superior apect was grasped, the fascia was tented up, and dissected sharply and bluntly away from underlying muscle, in a similar fashion it was performed at inferior aspect of the fascia. The rectus muscles were in the midline and peritoneum was entered. Rectus muscles and peritoneum were lateralized bluntly. Self-retaining retractor was now gently placed after palpating position and uterine position. A bladder flap was created sharply and bluntly. A low-transverse hysterotomy was performed. Uterine cavity was entered bluntly with the scalpel. Hysterotomy was lateralized bluntly. The head was delivered from the pelvis with the aid of a vaginal hand from Labor and Delivery nurse. Head was delivered from the pelvis. Fundal pressure was applied. The head was delivered, followed by anterior shoulder, posterior shoulder, and remainder of the body. 's oropharynx and nares were bulb suctioned. Cord was clamped x2 and cut. The was handed off to attending physician, Dr. Chapa. Cord arterial, cord venous, and cord blood sampling were obtained. The placenta was now delivered. Uterine cavity was cleared of all clot and debris. Hysterotomy was repaired using 0 Vicryl in a continuous locked fashion, followed by a re-imbricating layer, midline [id number] suture was placed x2. The uterus was firm. The uterus was returned to the abdominal cavity. The bladder blade was placed. Hysterotomy was inspected and found to be hemostatic. The rectus muscles and peritoneum were reapproximated using 0 Vicryl with inverted mattress suture technique. Anterior aspect of the muscle and posterior aspect of the fascia were closely inspected. Any oozing was cauterized. The rectus fascia was now reapproximated using 0 Vicryl in a continuous running locked fashion, beginning laterally in the side and meeting in the midline. Subcutaneous tissue was well irrigated and suction dried. Any oozing were cauterized. The skin and subcutaneous tissue were reapproximated using 3-0 plain in a continuous running fashion. The subcutaneous tissue continued to be well irrigated. The skin edges were reapproximated using 3-0 Vicryl in subcuticular fashion on a Aman needle. Dermabond was now gently placed. The uterus remained firm. Vital signs have remained stable. The patient will go to the PACU and remain on magnesium recovery, and in the Nursery. Sponge count, needle count, and instrument count were correct x2. The patient also did require some propofol and increased dose of IV narcotics during the procedure to help keep her comfortable. ANNABELLE HARPER /[id number] MTDD
== END 2017-09-24 12:25 | disposition home or self-care (01) | DRG 540 ==
LOC: MW.OBCHECK 16:53 → MW.OB 17:41 → OBSVTOIN 09-21 21:20 → MW.OB 09-22 10:38
PROVIDERS: ADMIT Obstetrics & Gynecology; ATTEND Obstetrics & Gynecology
PROC: 10D00Z1 Extraction of Products of Conception, Low, Open Approach (ICD-10-PCS; principal; 2017-09-21)
PROC: 3E0P7VZ Introduction of Hormone into Female Reproductive, Via Natural or Artificial Opening (ICD-10-PCS; 2017-09-21)
PROC: 3E033VJ Introduction of Other Hormone into Peripheral Vein, Percutaneous Approach (ICD-10-PCS; 2017-09-21)
PROC: 0U7C7ZZ Dilation of Cervix, Via Natural or Artificial Opening (ICD-10-PCS; 2017-09-21)
PROC: 10907ZC Drainage of Amniotic Fluid, Therapeutic from Products of Conception, Via Natural or Artificial Opening (ICD-10-PCS; 2017-09-21)
DX: O14.94 Unspecified pre-eclampsia, complicating childbirth (principal); O62.1 Secondary uterine inertia; Z3A.36 36 weeks gestation of pregnancy; Z37.0 Single live birth
CPT/HCPCS: 01967; 01968; 36415; 59025; 80053; 82570; 82803; 83615; 83735; 84156; 84550; 85025; 85027; 86850; 86900; 86901; 87081; A9270-GY; J0290; J0595; J0690; J1100; J1885; J2274; J2300; J2370; J2405; J2550; J2590; J2704; J2795; J3010; J3475; J7030; J7040; J7050

== ENCOUNTER 2020-06-21 12:44 | Emergency (ER) | payer BC, OTHER ==
--- NOTE | 2020-06-21 13:12 | EDM.PDOC ---
ED HPI GENERAL MEDICAL PROBLEM - General Chief Complaint: Respiratory Problem Stated Complaint: SOB COVID Time Seen by Provider: 06/21/20 12:52 Source of Information: Reports: Patient History Limitations: Reports: No Limitations - History of Present Illness INITIAL COMMENTS - FREE TEXT/NARRATIVE: HISTORY AND PHYSICAL: History of present illness: Patient is a 35-year-old female who presents to the emergency room with complaints of increased shortness of breath. She started having shortness of breath, chest pain and coughing and fatigue approximately a week and a half ago, tested positive for COVID-19 5 days ago. She has had an improvement of her coughing, chest pain but continues to feel short of breath and has developed some nausea/vomiting. Concerned as she has not been able to keep fluids down, recently received a prescription for Zofran. She is currently 22 weeks gestation, no OBGYN related problems. Today called her [employer] who recommended she come in for evaluation. Patient denies any fever, chills, headache, change in vision, syncope or near syncope. Denies any chest pain, back pain, abdominal pain, diarrhea, constipation or dysuria. Has not noted any blood in urine or stool. Review of systems: As per history of present illness and below otherwise all systems reviewed and negative. Past medical history: As per history of present illness and as reviewed below otherwise noncontributory. Surgical history: As per history of present illness and as reviewed below otherwise noncontributory. Social history: See social history for further information Family history: As per history of present illness and as reviewed below otherwise noncontributory. Physical exam: General: Well developed and well nourished. Alert and orientated x 3. Nontoxic in appearance and in no acute distress. Vital signs are stable and have been reviewed by me. Nursing notes were reviewed. HEENT: Atraumatic, normocephalic, pupils equal and reactive bilaterally, n egative for conjunctival pallor or scleral icterus, mucous membranes moist, TMs normal bilaterally, throat clear, neck supple, nontender, trachea midline. No drooling or trismus noted. No meningeal signs. No hot potato voice noted. Lungs: Clear to auscultation, breath sounds equal bilaterally, chest nontender. Normal work of breathing, no accessory muscles used. Heart: S1S2, regular rate and rhythm without overt murmur Abdomen: Soft, nondistended, nontender. Negative for masses or hepatosplenomegaly. Negative for costovertebral tenderness. Skin: Intact, warm, dry. No lesions or rashes noted. Hematologic: No petechiae or purpra. Mucosa appropriate color and normal nail bed color and refill. Extremities: Atraumatic, moves all extremities per self without difficulty or deficits, negative for cords or calf pain. Neurovascular unremarkable. Neuro: Awake, alert, oriented. Cranial nerves II through XII unremarkable. Cerebellum unremarkable. Motor and sensory unremarkable throughout. Exam non focal. Psychiatric: Mood and affect are appropriate. Normal thought process. Answering questions appropriately. Notes: Patient's lab work is unremarkable. Her vital signs remained stable. Her phys ical exam is within normal limits. At this time I do not she requires any further diagnostics. I did speak with Dr. Ramirez, [employer] on-call for Dr. Orr, her primary [employer]. We reviewed the's patient's case and she is agreeable with the patient is appropriate for discharge without any further intervention. I have spoken with the patient/caregiver and discussed today's findings, in addition to providing specific details for plan of care. Reassessment at the time of disposition demonstrates that the patient is in no acute distress. The patient has remained stable throughout the entire ED visit and is without objective evidence for acute process requiring urgent intervention or hospitalization. The patient is stable for discharge, counseling was provided and we discussed in great detail signs and symptoms that would prompt them to return to the Emergency Department. Medication, follow up and supportive care measures were reviewed and discussed. Voices understanding and is agreeable to plan of care. Denies any further questions or concerns at this time. Diagnostics: CBC, CMP, [employer]: IV fluids, Zofran Prescription: None Impression: COVID - 19 Plan: 1. Today's lab work was within normal limits. Your vital signs and oxygen saturation are well enough that you were able to monitor your symptoms at home. Continue to monitor for trouble breathing, new confusion or inability to arouse, bluish lips or face or any of the other symptoms we discussed -if this occurs please return to the emergency room. 2. Please self quarantine as directed 3. Take Tylenol as needed. Increase your fluids to prevent dehydration. Take Zofran as needed for nausea/vomiting management 4. Please keep close communication with your [employer] and/or primary care provider regarding your symptoms and . The [facility] Hotline phone number , They are open Sunday - Sunday 7am - 7pm. Follow up with your primary care provider for re-evaluation and re-testing after the 2 week quarantine and discuss when you should be seen. Definitive disposition and diagnosis as appropriate pending reevaluation and review of above. - Related Data Allergies Allergy/AdvReac Type Severity Reaction Status Date / Time dexamethasone Allergy Other Verified 06/21/20 12:51 ketorolac tromethamine Allergy Shortness Verified 06/21/20 12:51 [From Toradol] of Breath metoclopramide HCl Allergy Anxiety Verified 06/21/20 12:51 [From Reglan] naproxen sodium Allergy Shortness Verified 06/21/20 12:51 [From Treximet] of Breath sumatriptan [From Imitrex] Allergy Shortness Verified 06/21/20 12:51 of Breath sumatriptan succinate Allergy Shortness Verified 06/21/20 12:51 [From Treximet] of Breath Home Meds: Home Meds Ondansetron [Zofran] 4 mg PO Q4H #30 tab 03/08/17 [Rx] Vit No.129/Iron/FA [ One Daily Tablet] 1 tab PO DAILY 03/08/17 [History] Sertraline HCl [Zoloft] 200 mg PO DAILY 03/08/17 [History] Lurasidone HCl [Latuda] 40 mg PO DAILY 06/21/20 [History] busPIRone [Buspar] 5 mg PO BID 06/21/20 [History] Past Medical History HEENT History: Reports: None Cardiovascular History: Reports: None Respiratory History: Reports: Asthma Gastrointestinal History: Reports: None Genitourinary History: Reports: None [employer] History: Reports: Musculoskeletal History: Reports: Fibromyalgia Neurological History: Reports: Migraines, Other (See Below) Other Neuro History: fibromyalgia, psuedo cerebral tumor Psychiatric History: Reports: Anxiety, Depression Endocrine/Metabolic History: Reports: None Dermatologic History: Reports: None - Infectious Disease History Infectious Disease History: Reports: Chicken Pox, Novel Coronavirus - Past Surgical History HEENT Surgical History: Reports: None GI Surgical History: Reports: None Female Surgical History: Reports: Section Social & Family History - Family History Family Medical History: Noncontributory - Tobacco Use Tobacco Use Status *Q: Never Tobacco User - Caffeine Use Caffeine Use: Reports: Coffee, Soda - Recreational Drug Use Recreational Drug Use: No ED ROS GENERAL - Review of Systems Review Of Systems: Comprehensive ROS is negative, except as noted in HPI. ED EXAM, GENERAL - Physical Exam Exam: See Below (See dictation) Course - Vital Signs Last Recorded V/S: Last Vital Signs Temp 96.4 F L 06/21/20 12:47 Pulse 86 06/21/20 12:47 Resp 30 H 06/21/20 12:47 BP 145/69 H 06/21/20 12:47 Pulse Ox 96 06/21/20 12:47 - Orders/Labs/Meds Orders: Active Orders 24 hr Category Date Time Status Heart Tones [RC] ASDIRECTED Care 06/21/20 13:11 Active CULTURE URINE [RM] Stat Lab 06/21/20 13:31 Received Sodium Chloride 0.9% [Normal Saline] 1,000 ml Med 06/21/20 13:21 Active IV STAT Medication Orders Sodium Chloride (Normal Saline) 1,000 mls @ 999 mls/hr IV STAT ONE Stop: 06/21/20 14:21 Last Admin: 06/21/20 13:24 Dose: 999 mls/hr Documented by: ANIBAL Labs: Laboratory Tests 06/21/20 06/21/20 06/21/20 Range/Units 13:24 13:24 13:31 WBC 6.21 (4.0-11.0) K/uL RBC 4.00 L (4.30-5.90) M/uL Hgb 12.5 (12.0-16.0) g/dL Hct 36.7 (36.0-46.0) % MCV 91.8 (80.0-98.0) fL MCH 31.3 (27.0-32.0) pg MCHC 34.1 (31.0-37.0) g/dL RDW Std Deviation 44.7 (28.0-62.0) fl RDW Coeff of Paige 13 (11.0-15.0) % Plt Count 165 (150-400) K/uL MPV 10.40 (7.40-12.00) fL Neut % (Auto) 77.9 (48.0-80.0) % Lymph % (Auto) 17.1 (16.0-40.0) % [place] % (Auto) 4.3 (0.0-15.0) % Eos % (Auto) 0.5 (0.0-7.0) % Baso % (Auto) 0.2 (0.0-1.5) % Neut # (Auto) 4.8 (1.4-5.7) K/uL Lymph # (Auto) 1.1 (0.6-2.4) K/uL [place] # (Auto) 0.3 (0.0-0.8) K/uL Eos # (Auto) 0.0 (0.0-0.7) K/uL Baso # (Auto) 0.0 (0.0-0.1) K/uL Nucleated RBC % 0.0 /100WBC Nucleated RBCs # 0 K/uL Sodium 136 (136-145) mmol/L Potassium 3.4 L (3.5-5.1) mmol/L Chloride 103 (98-107) mmol/L Carbon Dioxide 22.3 (21.0-32.0) mmol/L BUN 9 (7.0-18.0) mg/dL Creatinine 0.6 (0.6-1.0) mg/dL Est Cr Clr Drug Dosing 114.08 mL/min Estimated GFR (MDRD) > 60.0 ml/min Glucose 90 (74-106) mg/dL Calcium 8.2 L (8.5-10.1) mg/dL Total Bilirubin 0.4 (0.2-1.0) mg/dL AST 15 (15-37) IU/L ALT 17 (14-63) IU/L Alkaline Phosphatase 123 H (46-116) U/L Total Protein 6.5 (6.4-8.2) g/dL Albumin 2.6 L (3.4-5.0) g/dL Globulin 3.9 (2.6-4.0) g/dL Albumin/Globulin Ratio 0.7 L (0.9-1.6) Urine Color YELLOW Urine Appearance CLOUDY Urine pH 8.0 (5.0-8.0) Ur Specific [place] 1.025 (1.001-1.035) Urine Protein NEGATIVE (NEGATIVE) mg/dL Urine Glucose (UA) NEGATIVE (NEGATIVE) mg/dL Urine Ketones NEGATIVE (NEGATIVE) mg/dL Urine Occult Blood NEGATIVE (NEGATIVE) Urine Nitrite NEGATIVE (NEGATIVE) Urine Bilirubin NEGATIVE (NEGATIVE) Urine Urobilinogen 4.0 H (<2.0) EU/dL Ur Leukocyte Esterase TRACE H (NEGATIVE) Urine RBC 0-1 (0-2/HPF) Urine WBC 1-3 (0-5/HPF) Ur Epithelial Cells FEW (NONE-FEW) Amorphous Sediment MODERATE (NEGATIVE) Urine Bacteria FEW (NEGATIVE) Meds: Medications Generic Name Dose Route Start Last Admin Trade Name Freq PRN Reason Stop Dose Admin Sodium Chloride 1,000 mls @ 999 mls/hr 06/21/20 13:21 06/21/20 13:24 Normal Saline IV 06/21/20 14:21 999 mls/hr STAT ONE Administration Discontinued Medications Generic Name Dose Route Start Last Admin Trade Name Freq PRN Reason Stop Dose Admin Ondansetron HCl 4 mg 06/21/20 13:21 06/21/20 13:24 Zofran IVPUSH 06/21/20 13:22 4 mg ONETIME ONE Administration Departure - Departure Time of Disposition: 14:16 Disposition: Home, Self-Care 01 Clinical Impression: COVID-19 affecting in second trimester - Discharge Information Referrals: PCP,None [Primary Care Provider] - Forms: ED Department Discharge Additional Instructions: The following information is given to patients seen in the emergency department who are being discharged to home. This information is to outline your options for follow-up care. We provide all patients seen in our emergency department with a follow-up referral. The need for follow-up, as well as the timing and circumstances, are variable depending upon the specifics of your emergency department visit. If you don't have a primary care physician on staff, we will provide you with a referral. We always advise you to contact your personal physician following an emergency department visit to inform them of the circumstance of the visit and for follow-up with them and/or the need for any referrals to a consulting specialist. The emergency department will also refer you to a specialist when appropriate. This referral assures that you have the opportunity for follow-up care with a specialist. All of these measure are taken in an effort to provide you with optimal care, which includes your follow-up. Under all circumstances we always encourage you to contact your private physician who remains a resource for coordinating your care. When calling for follow-up care, please make the office aware that this follow-up is from your recent emergency room visit. If for any reason you are refused follow-up, please contact the [facility] Emergency Department at and asked to speak to the emergency department charge nurse. [facility] Primary Care [address] [place] [address] [facility] [place] [address] Thank you for choosing the [facility] emergency department in [place] for your medical needs today. It was a pleasure caring for you. Today you were seen in the emergency department for respiratory symptoms in . 1. Today's lab work was within normal limits. Your vital signs and oxygen saturation are well enough that you were able to monitor your symptoms at home. Continue to monitor for trouble breathing, new confusion or inability to arouse, bluish lips or face or any of the other symptoms we discussed -if this occurs please return to the emergency room. 2. Please self quarantine as directed 3. Take Tylenol as needed. Increase your fluids to prevent dehydration. Take Zofran as needed for nausea/vomiting management 4. Please keep close communication with your [employer] and/or primary care provider regarding your symptoms and . The [place] [facility] Hotline phone number , They are open Sunday - Sunday 7am - 7pm. Follow up with your primary care provider for re-evaluation and re-testing after the 2 week quarantine and discuss when you should be seen. Sepsis Event Note (ED) - Evaluation Sepsis Screening Result: Possible Sepsis Risk - Focused Exam Vital Signs: Vital Signs Temp Pulse Resp BP Pulse Ox 06/21/20 12:47 96.4 F L 86 30 H 145/69 H 96 - My Orders Last 24 Hours: My Active Orders 06/21/20 13:11 Heart Tones [RC] ASDIRECTED 06/21/20 13:21 Sodium Chloride 0.9% [Normal Saline] 1,000 ml IV STAT 06/21/20 13:31 CULTURE URINE [RM] Stat - Assessment/Plan Last 24 Hours: My Active Orders 06/21/20 13:11 Heart Tones [RC] ASDIRECTED 06/21/20 13:21 Sodium Chloride 0.9% [Normal Saline] 1,000 ml IV STAT 06/21/20 13:31 CULTURE URINE [RM] Stat
[2020-06-21] MEDS ORDERED: Sodium Chloride 0.9% 1,000 ML IV ONE (13:21)
[2020-06-21] MEDS ORDERED: Ondansetron 4 MG/2 ML SDV IVPUSH ONE (13:21)
[2020-06-21 13:54] LABS: BLOOD UREA NITROGEN,BUN 9 mg/dL (7.0-18.0); CARBON DIOXIDE,CO2 22.3 mmol/L (21.0-32.0); CHLORIDE,CL 103 mmol/L (98-107); GLUCOSE RANDOM 90 mg/dL (74-106); POTASSIUM,K 3.4 mmol/L (3.5-5.1); SODIUM,NA 136 mmol/L (136-145)
[2020-06-21 15:04] VITALS: BP 108/64; PULSE 72
== END 2020-06-21 15:05 | disposition home or self-care (01) ==
LOC: MW.ED 12:44
DX: O98.512 Other viral diseases complicating pregnancy, second trimester (principal); U07.1 COVID-19; J45.909 Unspecified asthma, uncomplicated; F41.9 Anxiety disorder, unspecified; F32.9 Major depressive disorder, single episode, unspecified; Z88.8 Allergy status to other drugs, medicaments and biological substances; Z88.6 Allergy status to analgesic agent; Z88.1 Allergy status to other antibiotic agents; Z79.899 Other long term (current) drug therapy; Z3A.22 22 weeks gestation of pregnancy
CPT/HCPCS: 36415; 80053; 81001; 85025; 87086; 96374; 99284; J2405; J7030; 99283

== ENCOUNTER 2020-10-18 05:24 | Inpatient (IN) | payer BC ==
[2020-10-18] MEDS ORDERED: Sodium Chloride 0.9% 10 ML Syringe FLUSH PRN (05:42)
[2020-10-18] MEDS ORDERED: Sodium Chloride 0.9% 10 ML SDV IV PRN (05:42)
[2020-10-18] MEDS ORDERED: Sodium Chloride 0.9% 2.5 ML Syringe FLUSH PRN (05:42)
[2020-10-18] MEDS ORDERED: Citric Acid/Sodium Citrate Solution 30 ML Cup PO ONE (05:42)
[2020-10-18] MEDS ORDERED: Oxytocin/0.9 % Sodium Chloride 30 UNIT/500 ML BAG IV SCH (05:45)
[2020-10-18] MEDS ORDERED: ceFAZolin 1 GM Vial IM ONE (05:49)
[2020-10-18] MEDS: Lactated Ringers 1,000 ML IV SCH ×2 (06:20→06:42)
[2020-10-18] MEDS ORDERED: Phenylephrine 1% 10 MG/ML SDV ONE ×2 (06:54→07:04)
[2020-10-18] MEDS ORDERED: Oxytocin 10 Units/1 ML SDV ONE (06:54)
[2020-10-18] MEDS ORDERED: Morphine PF 10 MG/10 ML SDV ONE ×2 (06:56→07:03)
[2020-10-18] MEDS ORDERED: Ondansetron 4 MG/2 ML SDV ONE ×2 (07:04→07:54)
--- NOTE | 2020-10-18 07:28 | PCM.PREANE ---
Preanesthetic Assessment - Anesthesia/Transfusion/Family Hx Anesthesia History: Prior Anesthesia Without Reaction (epidural for prior labor and c section) Family History of Anesthesia Reaction: No Transfusion History: No Prior Transfusion(s) - Review of Systems General: No Symptoms Pulmonary: No Symptoms Cardiovascular: No Symptoms Gastrointestinal: No Symptoms Neurological: No Symptoms Other: Reports: None - Physical Assessment NPO Status Date: 10/17/20 Height: 5 ft 4 in Weight: 118.841 kg ASA Class: 2 Mental Status: Alert & Oriented x3 Airway Class: Mallampati = 2 Dentition: Reports: Normal Dentition ROM/Head Extension: Full Lungs: Clear to Auscultation, Normal Respiratory Effort Cardiovascular: Regular Rate, Regular Rhythm - Lab Values: Laboratory Last Values WBC 9.33 K/uL (4.0-11.0) 10/18/20 06:00 RBC 4.08 M/uL (4.30-5.90) L 10/18/20 06:00 Hgb 12.9 g/dL (12.0-16.0) 10/18/20 06:00 Hct 37.7 % (36.0-46.0) 10/18/20 06:00 MCV 92.4 fL (80.0-98.0) 10/18/20 06:00 MCH 31.6 pg (27.0-32.0) 10/18/20 06:00 MCHC 34.2 g/dL (31.0-37.0) 10/18/20 06:00 RDW Std Deviation 43.2 fl (28.0-62.0) 10/18/20 06:00 RDW Coeff of Paige 13 % (11.0-15.0) 10/18/20 06:00 Plt Count 175 K/uL (150-400) 10/18/20 06:00 MPV 11.30 fL (7.40-12.00) 10/18/20 06:00 Nucleated RBC % 0.0 /100WBC 10/18/20 06:00 Nucleated RBCs # 0 K/uL 10/18/20 06:00 Blood Type A POSITIVE 10/18/20 06:00 Antibody Screen NEGATIVE 10/18/20 06:00 - Allergies Allergies/Adverse Reactions: Allergies Allergy/AdvReac Type Severity Reaction Status Date / Time dexamethasone Allergy Cannot Verified 10/12/20 09:15 Remember ketorolac tromethamine Allergy Shortness Verified 10/12/20 08:37 [From Toradol] of Breath metoclopramide HCl Allergy Anxiety/kevin Verified 10/12/20 09:15 [From Reglan] tation naproxen sodium Allergy Shortness Verified 10/12/20 08:37 [From Treximet] of Breath sumatriptan [From Imitrex] Allergy Shortness Verified 10/12/20 08:37 of Breath sumatriptan succinate Allergy Shortness Verified 10/12/20 08:37 [From Treximet] of Breath - Anesthesia Plan Pre-Op Medication Ordered: Antacids - Acknowledgements Anesthesia Type Planned: Spinal Pt an Appropriate Candidate for the Planned Anesthesia: Yes Alternatives and Risks of Anesthesia Discussed w Pt/Guardian: Yes Pt/Guardian Understands and Agrees with Anesthesia Plan: Yes PreAnesthesia Questionnaire HEENT History: Reports: None Cardiovascular History: Reports: None Other Cardiovascular History: high blood pressure with previous Respiratory History: Reports: Asthma Other Respiratory History: asthma as a child Gastrointestinal History: Reports: None Genitourinary History: Reports: None [employer] History: Reports: Musculoskeletal History: Reports: Fibromyalgia Neurological History: Reports: Migraines, Other (See Below) Other Neuro History: fibromyalgia, psuedo cerebral tumor Psychiatric History: Reports: Anxiety, Depression Endocrine/Metabolic History: Reports: None Hematologic History: Reports: None Immunologic History: Reports: None Oncologic (Cancer) History: Reports: None Dermatologic History: Reports: None - Infectious Disease History Infectious Disease History: Reports: Chicken Pox, Novel Coronavirus - Past Surgical History HEENT Surgical History: Reports: None - SUBSTANCE USE Tobacco Use Status *Q: Never Tobacco User - HOME MEDS Home Medications: Home Meds Ondansetron [Zofran] 4 mg PO Q4H #30 tab 03/08/17 [Rx] Vit No.129/Iron/FA [ One Daily Tablet] 1 tab PO DAILY 03/08/17 [History] Sertraline HCl [Zoloft] 200 mg PO DAILY 03/08/17 [History] busPIRone [Buspar] 7.5 mg PO TID 06/21/20 [History] Cholecalciferol (Vitamin D3) [Vitamin D3] 4,000 units PO DAILY 10/12/20 [History] - CURRENT (IN HOUSE) MEDS Current Meds: Current Medications Oxytocin/Sodium Chloride (Oxytocin 30 Unit/500 Ml-Ns) 30 unit in 500 mls @ 250 mls/hr IV TITRATE MARIALUISA Lactated Ringer's (Ringers, Lactated) 1,000 mls @ 500 mls/hr IV BOLUS MARIALUISA Last Admin: 10/18/20 06:42 Dose: 999 mls/hr Documented by: Sodium Chloride (Saline Flush) 10 ml FLUSH ASDIRECTED PRN PRN Reason: Keep Vein Open Sodium Chloride (Saline Flush) 2.5 ml FLUSH ASDIRECTED PRN PRN Reason: Keep Vein Open Sodium Chloride (Normal Saline) 10 ml IV ASDIRECTED PRN PRN Reason: IV Use Discontinued Medications Cefazolin Sodium (Ancef) 3 gm IM ONETIME ONE Stop: 10/18/20 05:50 Citric Acid/Sodium Citrate (Bicitra Solution) 30 ml PO ONETIME ONE Stop: 10/18/20 05:43 Morphine Sulfate (Duramorph Pf) Confirm Administered Dose 10 mg .ROUTE .STK-MED ONE Stop: 10/18/20 06:57 Morphine Sulfate (Duramorph Pf) Confirm Administered Dose 10 mg .ROUTE .STK-MED ONE Stop: 10/18/20 07:04 Ondansetron HCl (Zofran) Confirm Administered Dose 4 mg .ROUTE .STK-MED ONE Stop: 10/18/20 07:05 Oxytocin (Pitocin) Confirm Administered Dose 30 unit .ROUTE .STK-MED ONE Stop: 10/18/20 06:55 Phenylephrine HCl (James-Synephrine) Confirm Administered Dose 10 mg .ROUTE .STK- MED ONE Stop: 10/18/20 06:55 Phenylephrine HCl (James-Synephrine) Confirm Administered Dose 10 mg .ROUTE .STK- MED ONE Stop: 10/18/20 07:05
[2020-10-18] MEDS ORDERED: ceFAZolin 1 GM Vial ONE (07:31)
[2020-10-18] MEDS ORDERED: Sodium Chloride 0.9% 20 ML ONE (07:31)
[2020-10-18] MEDS ORDERED: Octyl 2-Cyanoacrylate 1 Tube ONE (07:32)
[2020-10-18] MEDS ORDERED: Nalbuphine 10 MG/1 ML Vial IVPUSH PRN (08:31)
[2020-10-18] MEDS ORDERED: fentaNYL 100 MCG/2 ML SDV IVPUSH PRN (08:31)
--- NOTE | 2020-10-18 09:09 | PCM.OPNOTE ---
<Ariella Guillen - Last Filed: 10/18/20 09:07> - General Post-Op/Procedure Note Date of Surgery/Procedure: 10/18/20 Operative Procedure(s): Repeat section Findings: 39+1 term with delivery of viable male infant, weight 4070g and apgars 7 & 8. Uterus and bilateral fallopian tubes normal. Pre Op Diagnosis: Term Post-Op Diagnosis: Term delivered Anesthesia Technique: Spinal Primary Surgeon: Leanna Orr Secondary Surgeon: Ariella Guillen ([id number]) Pathology: none Fluid Replacement, Intraop: 900 Output, Urine Amount: 75 EBL in mLs: 500 Complications: none known Condition: Stable <Leanna Orr - Last Filed: 10/18/20 09:15> - General Post-Op/Procedure Note Pre Op Diagnosis: 39 week IUP. Previous c section, desires repeat. Gestational HTN Post-Op Diagnosis: Same Free Text/Narrative:: Intake & Output 10/17/20 10/18/20 10/18/20 22:59 06:59 14:59 Intake Total 900 Output Total 75 Balance 825 Dictation [id number]
[2020-10-18] MEDS ORDERED: Lanolin 100% Cream 7 GM Tube TOP PRN (09:18)
[2020-10-18] MEDS ORDERED: Oxytocin 10 Units/1 ML SDV IM PRN (09:18)
[2020-10-18] MEDS ORDERED: Ondansetron 4 MG/2 ML SDV IVPUSH PRN (09:18)
[2020-10-18] MEDS ORDERED: diphenhydrAMINE 50 MG/ML SDV IVPUSH PRN (09:18)
[2020-10-18] MEDS ORDERED: Misoprostol 200 MCG Tab RECTAL PRN (09:18)
[2020-10-18] MEDS ORDERED: Methylergonovine 0.2 MG/1 ML Amp IM PRN (09:18)
[2020-10-18] MEDS ORDERED: Bisacodyl 10 MG Supp RECTAL PRN (09:18)
[2020-10-18] MEDS ORDERED: Acetaminophen/oxyCODONE 325-5 MG Tab PO PRN (09:18)
[2020-10-18] MEDS ORDERED: Tranexamic Acid 1,000 MG in Sodium Chloride 0.9% 100 ML IV PRN (09:18)
[2020-10-18] MEDS ORDERED: Lactated Ringers 1,000 ML IV SCH (09:30)
--- NOTE | 2020-10-18 09:41 | PCM.POSTAN ---
POST ANESTHESIA ASSESSMENT - MENTAL STATUS Mental Status: Alert - RESPIRATORY Respiratory Status: Respiratory Rate WNL - CARDIOVASCULAR CV Status: Pulse Rate WNL - GASTROINTESTINAL GI Status: No Symptoms - POST OP HYDRATION Hydration Status: Adequate & Stable
[2020-10-18] MEDS: Acetaminophen 1,000 MG in Premix Bag 1 BAG IV SCH ×3 (10:00→21:34)
--- NOTE | 2020-10-18 10:27 | OR ---
SURGEON: Leanna Orr M.D. DATE OF PROCEDURE: 10/18/2020 PREOPERATIVE DIAGNOSES: 1. A 39-week intrauterine . 2. Previous section, desires repeat. 3. Gestational hypertension. POSTOPERATIVE DIAGNOSES: 1. A 39-week intrauterine . 2. Previous section, desires repeat. 3. Gestational hypertension. PROCEDURE: Repeat low transverse section. PRIMARY SURGEON: Leanna Orr M.D. DOBBY LOOM FIXER: MAXINE Graham4. ANESTHESIA: Spinal. ESTIMATED BLOOD LOSS: 500 mL. FLUIDS: 900 mL of crystalloid. COMPLICATIONS: None known. FINDINGS: Viable male. scores of 7 at one minute, 8 at five minutes. Weight of 4070 g. Delivery, intact placenta, 3-vessel cord. True knot in the cord was noted to be present. Clear amniotic fluid. DISPOSITION: to nursery, mom to PACU, stable condition. PROCEDURE DETAILS: This is a 35-year-old female who presents this morning for scheduled repeat delivery. She was noted late last week that her blood pressure started to become slightly elevated. PIH labs were normal. She was allowed to be monitored over the weekend and asked to present if she developed any symptoms of headache or visual changes. She did not and her blood pressures remained in the 130s to 140s over the weekend. Therefore, presented this morning for scheduled repeat delivery. Risks of procedure have been discussed. Proper consent obtained. The patient was taken to the operating room. She underwent a spinal anesthetic, was placed in dorsal supine position with a leftward tilt. SCDs to the lower extremities. Mcconnell to gravity. She was prepped and draped in the usual sterile fashion. A time-out was performed. Anesthesia was tested, found to be adequate. Previous low transverse scar was excised. This was a scar that was placed above the level of the pannus. The subcutaneous tissue was now incised down to level of rectus fascia, which was incised in midline and lateralized on either side sharply and bluntly. Superior aspect of the fascia was tented up sharply and bluntly away from underlying muscle. In similar aspect, this was performed with the inferior aspect of the fascia. Rectus muscles were now in midline. Peritoneum was entered. Rectus muscle and peritoneum were now lateralized bluntly. Uterine position and position palpated. Self-retaining retractor was gently placed. Uterovesical reflection was visualized. Bladder flap was created sharply and bluntly. Bladder was mobilized away from lower uterine segment. Low transverse hysterotomy was now performed. Uterine cavity was entered with the blunt-ended scalpel. Clear fluid was noted. Hysterotomy was lateralized bluntly. Infant's head was flexed and delivered from the pelvis. Fundal pressure was applied. The infant's head was delivered followed by anterior shoulder, posterior shoulder, and remainder of body without difficulty. The 's oropharynx and nares were bulb suctioned. The cord was clamped x2 and cut. was handed off to attending nursery staff. Cord arterial, cord venous, and cord blood sampling obtained. The placenta was now delivered. Uterine cavity was cleared of all clot and debris. Hysterotomy repaired using 0 Vicryl in continuous running locked fashion followed by re-imbricating layer. Posterior aspect of uterus inspected. No defects or hematomas found to be forming. Regions were well irrigated and suction dried. Uterus returned to abdominal cavity. Colonic gutters were cleared of all clot and debris, well irrigated, and suction dried. Hysterotomy was once again inspected, found to be hemostatic. Any serosal oozing was cauterized. A self-retaining retractor was now gently removed. Bladder blade was placed. Hysterotomy once again inspected, found to be hemostatic. The rectus fascia and peritoneum were now reapproximated using 0 Vicryl in inverted mattress suture technique in continuous running fashion. Anterior aspect of the muscle and posterior aspect of the fascia were now closely inspected. Any areas of oozing were cauterized. The rectus fascia was reapproximated using 0 Vicryl in continuous running fashion beginning laterally on either side and meeting in the midline. Subcutaneous tissue was well irrigated and suction dried. Any areas of oozing were cauterized. The deep subcutaneous tissue was closed using 3-0 plain in a continuous running fashion. The subcutaneous tissues were once again well irrigated and suction dried. Any areas of oozing were cauterized. Skin edges were reapproximated using 3-0 Vicryl in subcuticular fashion followed by Dermoplast. A LANG dressing was now gently placed and will be maintained in place for the next 7 to 10 days. The patient tolerated the procedure well overall. She will go to PACU in stable condition. We will continue to monitor blood pressures closely. to nursery. Lap, sponge, and needle counts correct x2. ANNABELLE / MEREDITH /[id number]
[2020-10-18] MEDS: Docusate Sodium 100 MG Cap PO SCH (21:28)
[2020-10-19] MEDS: Acetaminophen 1,000 MG in Premix Bag 1 BAG IV SCH (03:56)
[2020-10-19 06:09] LABS: BLOOD UREA NITROGEN,BUN 7 mg/dL (7.0-18.0); CARBON DIOXIDE,CO2 25.3 mmol/L (21.0-32.0); CHLORIDE,CL 103 mmol/L (98-107); GLUCOSE RANDOM 80 mg/dL (74-106); POTASSIUM,K 3.8 mmol/L (3.5-5.1); SODIUM,NA 136 mmol/L (136-145)
[2020-10-19] MEDS: Acetaminophen/oxyCODONE 325-5 MG Tab PO PRN ×4 (07:36→21:54)
--- NOTE | 2020-10-19 08:11 | PCM48HPAN ---
Post Anesthesia Note - EVALUATION WITHIN 48HRS OF ANESTHETIC Vital Signs in Normal Range: Yes Patient Participated in Evaluation: Yes Respiratory Function Stable: Yes Airway Patent: Yes Cardiovascular Function Stable: Yes Hydration Status Stable: Yes Pain Control Satisfactory: Yes Nausea and Vomiting Control Satisfactory: Yes Mental Status Recovered: Yes Vital Signs: Last Vital Signs Temp 35.7 C L 10/19/20 04:02 Pulse 89 10/19/20 06:00 Resp 16 10/19/20 06:00 BP 114/74 10/19/20 04:02 Pulse Ox 97 10/19/20 06:00 - COMMENTS/OBSERVATIONS Free Text/Narrative:: No anesthesia complications or concerns noted.
--- NOTE | 2020-10-19 08:23 | PCM.PNPP ---
- General Info Date of Service: 10/19/20 Functional Status: Reports: Pain Controlled, Tolerating Diet, Ambulating - Review of Systems General: Reports: Fatigue. Denies: Fever, Weakness Pulmonary: Denies: Shortness of Breath Cardiovascular: Denies: Chest Pain, Palpitations, Lightheadedness Gastrointestinal: Denies: Abdominal Pain, Nausea, Vomiting Genitourinary: Denies: Flank Pain Musculoskeletal: Reports: No Symptoms Skin: Reports: No Symptoms Neurological: Reports: No Symptoms Psychiatric: Reports: No Symptoms - General Info Date of Service: 10/19/20 - Patient Data Vital Signs - Most Recent: Last Vital Signs Temp 35.7 C L 10/19/20 04:02 Pulse 89 10/19/20 06:00 Resp 18 10/19/20 07:00 BP 114/74 10/19/20 04:02 Pulse Ox 96 10/19/20 07:00 Weight - Most Recent: 118.841 kg I&O - Last 24 Hours: Intake & Output 10/18/20 10/19/20 10/19/20 22:59 06:59 14:59 Intake Total 1950 100 Output Total 1200 2400 Balance 750 -2300 Lab Results - Last 24 Hours: Laboratory Results - last 24 hr 10/18/20 10/19/20 10/19/20 Range/Units 08:19 05:25 05:25 WBC 7.34 (4.0-11.0) K/uL RBC 3.34 L (4.30-5.90) M/uL Hgb 10.8 L (12.0-16.0) g/dL Hct 31.2 L (36.0-46.0) % MCV 93.4 (80.0-98.0) fL MCH 32.3 H (27.0-32.0) pg MCHC 34.6 (31.0-37.0) g/dL RDW Std Deviation 44.6 (28.0-62.0) fl RDW Coeff of Paige 13 (11.0-15.0) % Plt Count 153 (150-400) K/uL MPV 11.20 (7.40-12.00) fL Nucleated RBC % 0.0 /100WBC Nucleated RBCs # 0 K/uL Cord ABG pH 7.29 (7.18-7.38) Cord ABG Base Excess 0.8 H (-10--2) Cord VBG pH 7.335 (7.25-7.45) Cord VBG Base Excess -0.4 H (-10--2) Sodium 136 (136-145) mmol/L Potassium 3.8 (3.5-5.1) mmol/L Chloride 103 (98-107) mmol/L Carbon Dioxide 25.3 (21.0-32.0) mmol/L BUN 7 (7.0-18.0) mg/dL Creatinine 0.7 (0.6-1.0) mg/dL Est Cr Clr Drug Dosing 97.79 mL/min Estimated GFR (MDRD) > 60.0 ml/min Glucose 80 (74-106) mg/dL Calcium 8.3 L (8.5-10.1) mg/dL Total Bilirubin 0.2 (0.2-1.0) mg/dL AST 17 (15-37) IU/L ALT 13 L (14-63) IU/L Alkaline Phosphatase 114 (46-116) U/L Total Protein 5.8 L (6.4-8.2) g/dL Albumin 2.1 L (3.4-5.0) g/dL Globulin 3.7 (2.6-4.0) g/dL Albumin/Globulin Ratio 0.6 L (0.9-1.6) Med Orders - Current: Current Medications Bisacodyl (Dulcolax) 10 mg RECTAL ONETIME PRN PRN Reason: Constipation Diphenhydramine HCl (Benadryl) 25 mg IVPUSH Q6H PRN PRN Reason: Itching or Nausea Docusate Sodium (Colace) 100 mg PO BID [facility] Last Admin: 10/18/20 21:28 Dose: 100 mg Documented by: Emollient Ointment (Lansinoh Hpa) 0 gm TOP ASDIRECTED PRN PRN Reason: Sore Nipples Fentanyl (Sublimaze) 50 mcg IVPUSH Q5M PRN PRN Reason: Pain (severe 7-10) Stop: 10/19/20 08:32 Oxytocin/Sodium Chloride (Oxytocin 30 Unit/500 Ml-Ns) 30 unit in 500 mls @ 250 mls/hr IV TITRATE [facility] Lactated Ringer's (Ringers, Lactated) 1,000 mls @ 500 mls/hr IV BOLUS [facility] Last Admin: 10/18/20 06:42 Dose: 999 mls/hr Documented by: Lactated Ringer's (Ringers, Lactated) 1,000 mls @ 125 mls/hr IV ASDIRECTED [facility] Last Admin: 10/18/20 10:00 Dose: 125 mls/hr Documented by: Tranexamic Acid 1,000 mg/ (Sodium Chloride) 110 mls @ 660 mls/hr IV ONETIME PRN PRN Reason: Bleeding Methylergonovine Maleate (Methergine) 0.2 mg IM ONETIME PRN PRN Reason: Excessive Vaginal Bleeding Misoprostol (Cytotec) 1,000 mcg RECTAL ONETIME PRN PRN Reason: excessive bleeding Nalbuphine HCl (Nubain) 2.5 mg IVPUSH Q3H PRN PRN Reason: Pruritis Stop: 10/19/20 08:32 Ondansetron HCl (Zofran) 4 mg IVPUSH Q4H PRN PRN Reason: Nausea/Vomiting Oxycodone/Acetaminophen (Percocet 325-5 Mg) 1 tab PO Q4H PRN PRN Reason: Pain (moderate 4-6) Oxycodone/Acetaminophen (Percocet 325-5 Mg) 2 tab PO Q4H PRN PRN Reason: Pain (moderate 4-6) Last Admin: 10/19/20 07:36 Dose: 2 tab Documented by: Oxytocin (Pitocin) 10 unit IM ASDIRECTED PRN PRN Reason: Excessive Vaginal Bleeding Sodium Chloride (Saline Flush) 10 ml FLUSH ASDIRECTED PRN PRN Reason: Keep Vein Open Sodium Chloride (Saline Flush) 2.5 ml FLUSH ASDIRECTED PRN PRN Reason: Keep Vein Open Sodium Chloride (Normal Saline) 10 ml IV ASDIRECTED PRN PRN Reason: IV Use Discontinued Medications Cefazolin Sodium (Ancef) 3 gm IM ONETIME ONE Stop: 10/18/20 05:50 Cefazolin Sodium (Ancef) Confirm Administered Dose 1 gm .ROUTE .STK-MED ONE Stop: 10/18/20 07:32 Citric Acid/Sodium Citrate (Bicitra Solution) 30 ml PO ONETIME ONE Stop: 10/18/20 05:43 Last Admin: 10/18/20 07:41 Dose: 30 ml Documented by: Sodium Chloride (Normal Saline) Confirm Administered Dose 20 mls @ as directed .ROUTE .STK-MED ONE Stop: 10/18/20 07:32 Acetaminophen 1,000 mg/ Premix 100 mls @ 400 mls/hr IV Q6H MARIALUISA Stop: 10/19/20 03:44 Last Admin: 10/19/20 03:56 Dose: 400 mls/hr Documented by: Morphine Sulfate (Duramorph Pf) Confirm Administered Dose 10 mg .ROUTE .STK-MED ONE Stop: 10/18/20 06:57 Morphine Sulfate (Duramorph Pf) Confirm Administered Dose 10 mg .ROUTE .STK-MED ONE Stop: 10/18/20 07:04 Octyl Cyanoacrylate (Dermabond Advance) Confirm Administered Dose 1 applic .ROUTE .STK-MED ONE Stop: 10/18/20 07:33 Ondansetron HCl (Zofran) Confirm Administered Dose 4 mg .ROUTE .STK-MED ONE Stop: 10/18/20 07:05 Ondansetron HCl (Zofran) Confirm Administered Dose 4 mg .ROUTE .STK-MED ONE Stop: 10/18/20 07:55 Oxytocin (Pitocin) Confirm Administered Dose 30 unit .ROUTE .STK-MED ONE Stop: 10/18/20 06:55 Phenylephrine HCl (James-Synephrine) Confirm Administered Dose 10 mg .ROUTE .STK- MED ONE Stop: 10/18/20 06:55 Phenylephrine HCl (James-Synephrine) Confirm Administered Dose 10 mg .ROUTE .STK- MED ONE Stop: 10/18/20 07:05 - Infant Interaction Support Person: - Recovery Exam Fundal Tone: Firm Fundal Level: 1 Fingerbreadths Below Umbilicus Fundal Placement: Midline Lochia Amount: Scant Lochia Color: Rubra/Red Perineum Description: Intact, Minimal Bruising/Swelling Episiotomy/Laceration: None Bladder Status: Indwelling Catheter in Place Urinary Elimination: Indwelling Catheter - Exam General: Alert, Oriented Lungs: Normal Respiratory Effort Cardiovascular: Regular Rate, Regular Rhythm GI/Abdominal Exam: Soft, Non-Tender Extremities: Pedal Edema (trace). No: Harish's Sign Skin: Warm, Dry, Intact Wound/Incisions: Dressing Dry and Intact Neurological: No New Focal Deficit Psy/Mental Status: Alert, Normal Affect, Anxious - Problem List & Annotations (1) delivery delivered SNOMED Code(s): 490976124 Code(s): O82 - ENCOUNTER FOR DELIVERY WITHOUT INDICATION Status: Acute Current Visit: No - Problem List Review Problem List Initiated/Reviewed/Updated: Yes - My Orders Last 24 Hours: My Active Orders 10/18/20 09:18 Patient Status [ADT] Routine Ambulate [RC] PER UNIT ROUTINE Communication Order [RC] PER UNIT ROUTINE Communication Order [RC] PER UNIT ROUTINE Communication Order [RC] Per Unit Routine May Shower [RC] ASDIRECTED Notify Provider Intake and Out [RC] ASDIRECTED Notify Provider Vital Signs [RC] ASDIRECTED RT Incentive Spirometry [RC] Q2HWA Acetaminophen/oxyCODONE [Percocet 325-5 MG] 1 tab PO Q4H PRN Acetaminophen/oxyCODONE [Percocet 325-5 MG] 2 tab PO Q4H PRN Lanolin [Lansinoh HPA] See Dose Instructions TOP ASDIRECTED PRN Methylergonovine [Methergine] 0.2 mg IM ONETIME PRN Ondansetron [Zofran] 4 mg IVPUSH Q4H PRN Oxytocin [Pitocin] 10 unit IM ASDIRECTED PRN Tranexamic Acid [Cyklokapron] 1,000 mg Sodium Chloride 0.9% [Normal Saline] 100 ml IV ONETIME bisacodyL [Dulcolax] 10 mg RECTAL ONETIME PRN diphenhydrAMINE [Benadryl] 25 mg IVPUSH Q6H PRN miSOPROStoL [Cytotec] 1,000 mcg RECTAL ONETIME PRN Abdominal Binder [OM.PC] Routine Assess Lochia [WOMSER] Per Unit Routine Assess Uterine Involution [WOMSER] Per Unit Routine Breast Pump [WOMSER] Per Unit Routine Heat Therapy [OM.PC] Routine Ice Therapy [OM.PC] Routine Peripheral IV Discontinue [OM.PC] Routine Sequential Compression Device [OM.PC] Per Unit Routine 10/18/20 09:19 Antiembolic Devices [RC] PER UNIT ROUTINE 10/18/20 09:30 Lactated Ringers [Ringers, Lactated] 1,000 ml IV ASDIRECTED 10/18/20 Lunch Regular Diet [DIET] 10/18/20 21:00 Docusate Sodium [Colace] 100 mg PO BID - Assessment Assessment:: POD 1 status post repeat c section Gestational HTN--BPs have been normal Anxiety disorder, resume home buspirone - Plan Plan:: VS are stable with normal blood pressures since delivery. Labs remain stable with normal LFTs and platelets. Today, ambulate, may shower. She may resume her buspirone home meds. Continue postoperative cares.
[2020-10-19] MEDS: Docusate Sodium 100 MG Cap PO SCH ×2 (09:57→21:07)
[2020-10-19] MEDS ORDERED: Ibuprofen 800 MG Tab PO PRN (17:50)
[2020-10-19] MEDS ORDERED: Ibuprofen 200 MG Tab ONE (18:43)
[2020-10-19] MEDS: Ibuprofen 200 MG Tab PO PRN (18:48)
[2020-10-20] MEDS: Ibuprofen 200 MG Tab PO PRN ×2 (02:52→11:09)
[2020-10-20] MEDS: Simethicone 80 MG Tab.Chew PO SCH ×2 (04:50→06:39)
--- NOTE | 2020-10-20 07:42 | PCM.PNPP ---
<Ariella Guillen - Last Filed: 10/20/20 07:43> - General Info Date of Service: 10/20/20 Admission Dx/Problem (Free Text): Repeat section, gestational htn Subjective Update: Doing well. Pain controlled with PO pain meds. Ambulating/voiding appropriately. BF going well. Functional Status: Reports: Pain Controlled - Review of Systems General: Reports: No Symptoms HEENT: Reports: No Symptoms Pulmonary: Reports: No Symptoms Cardiovascular: Reports: No Symptoms Gastrointestinal: Reports: Abdominal Pain (appropriate post- abd. pain) Genitourinary: Reports: No Symptoms Musculoskeletal: Reports: No Symptoms Skin: Reports: No Symptoms Neurological: Reports: No Symptoms Psychiatric: Reports: No Symptoms - General Info Date of Service: 10/20/20 - Patient Data Vital Signs - Most Recent: Last Vital Signs Temp 98.0 F 10/20/20 04:00 Pulse 100 10/20/20 04:00 Resp 18 10/20/20 04:00 BP 121/88 10/20/20 04:00 Pulse Ox 96 10/20/20 04:00 Weight - Most Recent: 118.841 kg Med Orders - Current: Current Medications Bisacodyl (Dulcolax) 10 mg RECTAL ONETIME PRN PRN Reason: Constipation Diphenhydramine HCl (Benadryl) 25 mg IVPUSH Q6H PRN PRN Reason: Itching or Nausea Docusate Sodium (Colace) 100 mg PO BID [facility] Last Admin: 10/19/20 21:07 Dose: 100 mg Documented by: Emollient Ointment (Lansinoh Hpa) 0 gm TOP ASDIRECTED PRN PRN Reason: Sore Nipples Oxytocin/Sodium Chloride (Oxytocin 30 Unit/500 Ml-Ns) 30 unit in 500 mls @ 250 mls/hr IV TITRATE [facility] Lactated Ringer's (Ringers, Lactated) 1,000 mls @ 500 mls/hr IV BOLUS [facility] Last Admin: 10/18/20 06:42 Dose: 999 mls/hr Documented by: Lactated Ringer's (Ringers, Lactated) 1,000 mls @ 125 mls/hr IV ASDIRECTED [facility] Last Admin: 10/18/20 10:00 Dose: 125 mls/hr Documented by: Tranexamic Acid 1,000 mg/ (Sodium Chloride) 110 mls @ 660 mls/hr IV ONETIME PRN PRN Reason: Bleeding Ibuprofen (Motrin) 200 mg PO Q8H PRN PRN Reason: Pain (moderate 4-6) Last Admin: 10/20/20 02:52 Dose: 200 mg Documented by: Methylergonovine Maleate (Methergine) 0.2 mg IM ONETIME PRN PRN Reason: Excessive Vaginal Bleeding Misoprostol (Cytotec) 1,000 mcg RECTAL ONETIME PRN PRN Reason: excessive bleeding Ondansetron HCl (Zofran) 4 mg IVPUSH Q4H PRN PRN Reason: Nausea/Vomiting Oxycodone/Acetaminophen (Percocet 325-5 Mg) 1 tab PO Q4H PRN PRN Reason: Pain (moderate 4-6) Last Admin: 10/20/20 02:52 Dose: 1 tab Documented by: Oxycodone/Acetaminophen (Percocet 325-5 Mg) 2 tab PO Q4H PRN PRN Reason: Pain (moderate 4-6) Last Admin: 10/19/20 21:54 Dose: 2 tab Documented by: Oxytocin (Pitocin) 10 unit IM ASDIRECTED PRN PRN Reason: Excessive Vaginal Bleeding Simethicone (Simethicone) 80 mg PO TID [facility] Last Admin: 10/20/20 06:39 Dose: Not Given Documented by: Sodium Chloride (Saline Flush) 10 ml FLUSH ASDIRECTED PRN PRN Reason: Keep Vein Open Sodium Chloride (Saline Flush) 2.5 ml FLUSH ASDIRECTED PRN PRN Reason: Keep Vein Open Sodium Chloride (Normal Saline) 10 ml IV ASDIRECTED PRN PRN Reason: IV Use Discontinued Medications Cefazolin Sodium (Ancef) 3 gm IM ONETIME ONE Stop: 10/18/20 05:50 Last Admin: 10/19/20 19:53 Dose: Not Given Documented by: Cefazolin Sodium (Ancef) Confirm Administered Dose 1 gm .ROUTE .STK-MED ONE Stop: 10/18/20 07:32 Citric Acid/Sodium Citrate (Bicitra Solution) 30 ml PO ONETIME ONE Stop: 10/18/20 05:43 Last Admin: 10/18/20 07:41 Dose: 30 ml Documented by: Fentanyl (Sublimaze) 50 mcg IVPUSH Q5M PRN PRN Reason: Pain (severe 7-10) Stop: 10/19/20 08:32 Sodium Chloride (Normal Saline) Confirm Administered Dose 20 mls @ as directed .ROUTE .STK-MED ONE Stop: 10/18/20 07:32 Acetaminophen 1,000 mg/ Premix 100 mls @ 400 mls/hr IV Q6H [facility] Stop: 10/19/20 03:44 Last Admin: 10/19/20 03:56 Dose: 400 mls/hr Documented by: Ibuprofen (Motrin) 800 mg PO Q8H PRN PRN Reason: Pain (severe 7-10) Morphine Sulfate (Duramorph Pf) Confirm Administered Dose 10 mg .ROUTE .STK-MED ONE Stop: 10/18/20 06:57 Morphine Sulfate (Duramorph Pf) Confirm Administered Dose 10 mg .ROUTE .STK-MED ONE Stop: 10/18/20 07:04 Nalbuphine HCl (Nubain) 2.5 mg IVPUSH Q3H PRN PRN Reason: Pruritis Stop: 10/19/20 08:32 Octyl Cyanoacrylate (Dermabond Advance) Confirm Administered Dose 1 applic .ROUT E .STK-MED ONE Stop: 10/18/20 07:33 Last Admin: 10/19/20 19:53 Dose: Not Given Documented by: Ondansetron HCl (Zofran) Confirm Administered Dose 4 mg .ROUTE .STK-MED ONE Stop: 10/18/20 07:05 Ondansetron HCl (Zofran) Confirm Administered Dose 4 mg .ROUTE .STK-MED ONE Stop: 10/18/20 07:55 Last Admin: 10/19/20 19:53 Dose: Not Given Documented by: Oxytocin (Pitocin) Confirm Administered Dose 30 unit .ROUTE .STK-MED ONE Stop: 10/18/20 06:55 Phenylephrine HCl (James-Synephrine) Confirm Administered Dose 10 mg .ROUTE .STK- MED ONE Stop: 10/18/20 06:55 Phenylephrine HCl (James-Synephrine) Confirm Administered Dose 10 mg .ROUTE .STK- MED ONE Stop: 10/18/20 07:05 - Infant Interaction Disposition, : in Room with Family Interaction: Holding Infant Feeding: Breastfed ; Nursed Well Support Person: - Recovery Exam Fundal Tone: Firm Fundal Level: 1 Fingerbreadths Below Umbilicus Fundal Placement: Midline Lochia Amount: Scant Lochia Color: Rubra/Red Perineum Description: Intact, Minimal Bruising/Swelling Episiotomy/Laceration: None Bladder Status: Voiding Urinary Elimination: Voided - Exam General: Alert, Oriented HEENT: Pupils Equal Neck: Supple Lungs: Clear to Auscultation, Normal Respiratory Effort Cardiovascular: Regular Rate, Regular Rhythm GI/Abdominal Exam: Soft, No Organomegaly, No Distention, No Mass, Other (appropriately tender) Extremities: Normal Inspection, Normal Range of Motion, Non-Tender, No Pedal Edema, Normal Capillary Refill Skin: Warm, Dry, Intact Wound/Incisions: Healing Well, Dressing Dry and Intact Neurological: No New Focal Deficit Psy/Mental Status: Alert, Normal Affect, Normal Mood - Problem List & Annotations (1) delivery delivered SNOMED Code(s): 908759438 Code(s): O82 - ENCOUNTER FOR DELIVERY WITHOUT INDICATION Status: Acute Current Visit: No Onset Date: ~10/18/20 - Problem List Review Problem List Initiated/Reviewed/Updated: Yes - Assessment Assessment:: POD 2 status post repeat c section Gestational HTN--BPs have been mostly normal. 1 mildly elevated bp 145/78 / - no s/s post- pre-eclampsia. Anxiety disorder, resume home buspirone. Has meg. with med provider in a couple weeks - Plan Plan:: VS are stable with normal blood pressures since delivery. Labs remain stable with normal LFTs and platelets. Resumed home buspirone, has meg with mental health provider in a couple of weeks, will check in sooner if needed. D/c home today with f/u in 1 week for dressing removal. <Leanna Orr - Last Filed: 10/20/20 08:33> - Patient Data Vital Signs - Most Recent: Last Vital Signs Temp 37.2 C 10/20/20 07:52 Pulse 94 10/20/20 07:52 Resp 16 10/20/20 07:52 BP 125/79 10/20/20 07:52 Pulse Ox 96 10/20/20 07:52 Med Orders - Current: Current Medications Bisacodyl (Dulcolax) 10 mg RECTAL ONETIME PRN PRN Reason: Constipation Diphenhydramine HCl (Benadryl) 25 mg IVPUSH Q6H PRN PRN Reason: Itching or Nausea Docusate Sodium (Colace) 100 mg PO BID [facility] Last Admin: 10/19/20 21:07 Dose: 100 mg Documented by: Emollient Ointment (Lansinoh Hpa) 0 gm TOP ASDIRECTED PRN PRN Reason: Sore Nipples Oxytocin/Sodium Chloride (Oxytocin 30 Unit/500 Ml-Ns) 30 unit in 500 mls @ 250 mls/hr IV TITRATE [facility] Lactated Ringer's (Ringers, Lactated) 1,000 mls @ 500 mls/hr IV BOLUS [facility] Last Admin: 10/18/20 06:42 Dose: 999 mls/hr Documented by: Lactated Ringer's (Ringers, Lactated) 1,000 mls @ 125 mls/hr IV ASDIRECTED [facility] Last Admin: 10/18/20 10:00 Dose: 125 mls/hr Documented by: Tranexamic Acid 1,000 mg/ (Sodium Chloride) 110 mls @ 660 mls/hr IV ONETIME PRN PRN Reason: Bleeding Ibuprofen (Motrin) 200 mg PO Q8H PRN PRN Reason: Pain (moderate 4-6) Last Admin: 10/20/20 02:52 Dose: 200 mg Documented by: Methylergonovine Maleate (Methergine) 0.2 mg IM ONETIME PRN PRN Reason: Excessive Vaginal Bleeding Misoprostol (Cytotec) 1,000 mcg RECTAL ONETIME PRN PRN Reason: excessive bleeding Ondansetron HCl (Zofran) 4 mg IVPUSH Q4H PRN PRN Reason: Nausea/Vomiting Oxycodone/Acetaminophen (Percocet 325-5 Mg) 1 tab PO Q4H PRN PRN Reason: Pain (moderate 4-6) Last Admin: 10/20/20 02:52 Dose: 1 tab Documented by: Oxycodone/Acetaminophen (Percocet 325-5 Mg) 2 tab PO Q4H PRN PRN Reason: Pain (moderate 4-6) Last Admin: 10/20/20 07:44 Dose: 2 tab Documented by: Oxytocin (Pitocin) 10 unit IM ASDIRECTED PRN PRN Reason: Excessive Vaginal Bleeding Simethicone (Simethicone) 80 mg PO TID [facility] Last Admin: 10/20/20 06:39 Dose: Not Given Documented by: Sodium Chloride (Saline Flush) 10 ml FLUSH ASDIRECTED PRN PRN Reason: Keep Vein Open Sodium Chloride (Saline Flush) 2.5 ml FLUSH ASDIRECTED PRN PRN Reason: Keep Vein Open Sodium Chloride (Normal Saline) 10 ml IV ASDIRECTED PRN PRN Reason: IV Use Discontinued Medications Cefazolin Sodium (Ancef) 3 gm IM ONETIME ONE Stop: 10/18/20 05:50 Last Admin: 10/19/20 19:53 Dose: Not Given Documented by: Cefazolin Sodium (Ancef) Confirm Administered Dose 1 gm .ROUTE .STK-MED ONE Stop: 10/18/20 07:32 Citric Acid/Sodium Citrate (Bicitra Solution) 30 ml PO ONETIME ONE Stop: 10/18/20 05:43 Last Admin: 10/18/20 07:41 Dose: 30 ml Documented by: Fentanyl (Sublimaze) 50 mcg IVPUSH Q5M PRN PRN Reason: Pain (severe 7-10) Stop: 10/19/20 08:32 Sodium Chloride (Normal Saline) Confirm Administered Dose 20 mls @ as directed . ROUTE .STK-MED ONE Stop: 10/18/20 07:32 Acetaminophen 1,000 mg/ Premix 100 mls @ 400 mls/hr IV Q6H [facility] Stop: 10/19/20 03:44 Last Admin: 10/19/20 03:56 Dose: 400 mls/hr Documented by: Ibuprofen (Motrin) 800 mg PO Q8H PRN PRN Reason: Pain (severe 7-10) Morphine Sulfate (Duramorph Pf) Confirm Administered Dose 10 mg .ROUTE .STK-MED ONE Stop: 10/18/20 06:57 Morphine Sulfate (Duramorph Pf) Confirm Administered Dose 10 mg .ROUTE .STK-MED ONE Stop: 10/18/20 07:04 Nalbuphine HCl (Nubain) 2.5 mg IVPUSH Q3H PRN PRN Reason: Pruritis Stop: 10/19/20 08:32 Octyl Cyanoacrylate (Dermabond Advance) Confirm Administered Dose 1 applic .ROUTE .STK-MED ONE Stop: 10/18/20 07:33 Last Admin: 10/19/20 19:53 Dose: Not Given Documented by: Ondansetron HCl (Zofran) Confirm Administered Dose 4 mg .ROUTE .STK-MED ONE Stop: 10/18/20 07:05 Ondansetron HCl (Zofran) Confirm Administered Dose 4 mg .ROUTE .STK-MED ONE Stop: 10/18/20 07:55 Last Admin: 10/19/20 19:53 Dose: Not Given Documented by: Oxytocin (Pitocin) Confirm Administered Dose 30 unit .ROUTE .STK-MED ONE Stop: 10/18/20 06:55 Phenylephrine HCl (James-Synephrine) Confirm Administered Dose 10 mg .ROUTE .STK- MED ONE Stop: 10/18/20 06:55 Phenylephrine HCl (James-Synephrine) Confirm Administered Dose 10 mg .ROUTE .STK- MED ONE Stop: 10/18/20 07:05 - Problem List & Annotations (1) delivery delivered SNOMED Code(s): 390327792 Code(s): O82 - ENCOUNTER FOR DELIVERY WITHOUT INDICATION Status: Acute Current Visit: No Onset Date: ~10/18/20 - Plan Plan:: Patient seen and examined. Blood pressures are very reassuring. Discharge to home today. Follow up at [facility] next week for dressing change and BP check. Infection and bleeding warnings reviewed. Call if BPs >140/90. Discharge instructions reviewed.
[2020-10-20] MEDS: Acetaminophen/oxyCODONE 325-5 MG Tab PO PRN (07:44)
[2020-10-20 07:53] VITALS: BP 125/79; PULSE 94
[2020-10-20] MEDS: Docusate Sodium 100 MG Cap PO SCH (08:48)
== END 2020-10-20 12:40 | disposition home or self-care (01) | DRG 540 ==
LOC: MW.OB 05:24
PROVIDERS: ADMIT Obstetrics & Gynecology; ATTEND Obstetrics & Gynecology
PROC: 10D00Z1 Extraction of Products of Conception, Low, Open Approach (ICD-10-PCS; principal; 2020-10-18)
DX: O34.211 Maternal care for low transverse scar from previous cesarean delivery (principal); Z3A.39 39 weeks gestation of pregnancy; Z37.0 Single live birth; O13.4 Gestational [pregnancy-induced] hypertension without significant proteinuria, complicating childbirth; O99.344 Other mental disorders complicating childbirth; F41.9 Anxiety disorder, unspecified; Z88.8 Allergy status to other drugs, medicaments and biological substances
CPT/HCPCS: 01961; 36415; 80053; 82803; 85027; 86592; 86850; 86900; 86901; A9270-GY; J0131; J0690; J2270; J2370; J2405; J2590; J7120